=== PATIENT | male | born 1940 | race Caucasian/White ===

== ENCOUNTER → 2016-06-29 06:53 | Day surgery (SDC) | payer MEDICARE, OTHER ==
--- NOTE | 2016-06-22 01:19 | HP ---
ADMISSION HISTORY AND PHYSICAL: DATE OF ADMISSION: 06/29/16 DICTATING: DAMON Saul ATTENDING SURGEON: Johnson Borges MD CHIEF COMPLAINT: Umbilical hernia. HISTORY OF PRESENT ILLNESS: This is a 75-year-old male with longstanding history of an umbilical bulge, which until recently had been asymptomatic. On 06/13/16 and 06/14/16, the patient experienced increased pain in the umbilical region and found that the hernia bulge was not reducible. This was also associated with nausea and vomiting. He eventually was able to successfully reduce the hernia and felt improvement though he has continued to note ongoing intermittent nausea and occasional vomiting. It is difficult to correlate whether that is always in relation to increased symptoms from the hernia. He was seen in the office by Dr. Borges on 06/16/16; at which time, exam confirmed the presence of an umbilical hernia bulge, which was easily reducible and at that time nontender. The remainder of the abdominal exam was benign. Dr. Borges discussed with him the indications for repair and matters thereof, the patient would like to proceed as scheduled with open repair umbilical hernia with mesh. He understands that Dr. Borges will likely excise some of the umbilical skin as part of the procedure. PAST MEDICAL HISTORY: 1. Asthma. 2. Atrial fibrillation. 3. Coronary artery disease. 4. Mitral valve disease (status post mitral valve repair with single-vessel CABG and concurrent maze ablation procedure in 2007). 5. Hyperlipidemia. 6. Obstructive sleep apnea (has used CPAP in the past), but not presently. 7. Hypertension. 8. Chronic bilateral lower extremity venous stasis disease. 9. Insomnia. 10. Chronic anemia (at least in part iron deficiency with possible history as well of B12 deficiency). 11. Thoracic aortic ectasia. PAST SURGICAL HISTORY: 1. Cardiac surgery as noted above. 2. Vasectomy. CURRENT MEDICATIONS: 1. Atenolol 100 mg once daily. 2. Warfarin 4 mg once daily (the patient instructed to hold after his 06/23/16 dose). 3. Amiodarone 200 mg every day. 4. Aspirin 81 mg every day (he will continue perioperatively). 5. Simvastatin 20 mg q.p.m. 6. Spiriva 2 inhalations q.a.m. 7. QVAR 3 puffs q.a.m., 2 puffs q.p.m. 8. Zolpidem 10 mg one-half to one tablet at bedtime p.r.n. insomnia. 9. Nifedipine extended release 60 mg every day. 10. Multivitamin every day. DRUG ALLERGIES: None known. FAMILY HISTORY: Negative for anesthesia problems or bleeding or clotting disorders. SOCIAL HISTORY: The patient is . 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 He quit smoking 30 to 40 years ago. He drinks on an average less than or equal to 1 drink per day. He denies other drug use. REVIEW OF SYSTEMS: General: No recent constitutional symptoms other than as per the HPI. Because of his ongoing nausea, he has lost approximately 10 pounds in recent weeks. Cardiovascular: See attached note from Dr. Marina. No additional recent symptoms; chest pain, palpitations, or shortness of breath. Respiratory: No recent exacerbations of his asthma. No chronic cough. GI: As noted above. He was scheduled to be seen by Dr. Hubbard on 06/29/16, but that was rescheduled because of the conflict with the surgery. He has undergone colonoscopy in the past; the most recent being approximally 6 years ago with normal report per the patient. : No problems reported. Endocrine: No diabetes or thyroid dysfunction. Hematological/Oncological: He is followed by Dr. Cheryl Horne for his anemia. PHYSICAL EXAMINATION GENERAL: A well-nourished, obese male, in no acute distress. VITAL SIGNS: Height 70 inches, weight 256 pounds, other vital signs per nursing. HEENT: Pupils are equal, round, and reactive. EOMs intact. He has an apparent pinguecula of the left eye, lateral aspect. No conjunctival pallor. Oropharynx: Teeth in good repair. No intraoral lesions. NECK: No lymphadenopathy, thyromegaly, or masses. LUNGS: Clear to auscultation. No rales or wheezes. HEART: Regular rate and rhythm. Soft systolic murmur heard throughout the pericardium. Status post median sternotomy. ABDOMEN: Obvious local bulge, which is soft, nontender, and easily reducible. The remainder of the abdominal exam is without significant tenderness, masses, or organomegaly. No palpable inguinal hernias. GENITALIA: Not done. RECTAL: Not done. BACK: No spinous processes or CVA tenderness. EXTREMITIES: He has bilateral lower extremity compression stockings in placed. SKIN: Warm and dry. No suspicious rashes or lesions noted. IMPRESSION: Umbilical hernia. PLAN: Open repair umbilical hernia with mesh. DAMON SAUL CC: Miguel Mairna MD at [facility]; Dr. Ellington; Dr. Horne; Con Hubbard MD* [id number]/[facility] #: [id number] [facility]
[~2016-06-29 06:53] MED LIST: Buffered Lidocaine 1% SYR 3ML* 3 ML/SYR SYRINGE INTRADERM ONE; Buffered Lidocaine 1% SYR 3ML* 3 ML/SYR SYRINGE ONE; Bupivacaine 0.5% W/EPI SDV* 30 ML VIAL ONE; Famotidine IV* 10 MG/ML 2 ML (20 mg) IV ONE; Famotidine IV* 10 MG/ML 2 ML (20 mg) ONE; KETAMINE HCL* 50 MG/ML 10 ML VIAL ONE; Lidocaine 1% INJ* 10 MG/ML 30 ML SDV ONE; Metoprolol Tartrate IV* 1 MG/ML 5 ML VIAL ONE; Midazolam* 1 MG/ML 5 ML VIAL (5 MG) ONE; Morphine INJ* 2 MG/ML 1 ML CARPUJECT IV PRN; PROCHLORPERAZINE INJ 5 MG/ML 2 ML VIAL IV PRN; ceFAZolin 2 GM PREMIX (*) 2 GM/50 ML BAG IVPB ONE; fentaNYL* 50 MCG/ML 2 ML VIAL (100 MCG VIAL) IV PRN; fentaNYL* 50 MCG/ML 2 ML VIAL (100 MCG VIAL) ONE; oxyCODONE/Acetamin 5/325 MG* TAB PO PRN
[2016-06-29 09:32] VITALS: BP 113/69
--- NOTE | 2016-07-07 12:54 | OP ---
OPERATIVE REPORT: DATE OF OPERATION: 06/29/16 DATE OF : 38 SURGEON: Johnson Borges MD MELT SUPERINTENDANT: Leilani Scherer NP ANESTHESIOLOGIST: Dr. Tilley. ANESTHESIA: Local, MAC. PRE-OP DIAGNOSIS: Umbilical hernia. POST-OP DIAGNOSIS: Umbilical hernia. OPERATIVE PROCEDURE: Open repair of umbilical hernia with mesh. ESTIMATED BLOOD LOSS: Less than 30 cc. SPECIMEN: Hernia sac with umbilical skin. FLUIDS: Crystalloid fluid given. DRAINS: None. DESCRIPTION OF PROCEDURE: The patient was identified in the preoperative area, marked, and brought back to the operating room, placed on the operating table in supine position, gentle sedation was gi altagracia. The patient's abdomen was prepped and draped in the standard surgical fashion and a time-out w as performed. Review of the umbilicus revealed a large hernia that was reducible. An ellipse was d rawn around the umbilical skin. Injection of lidocaine along this ellipse was then carried out, inc ised and deepened this down to the hernia sac. We entered into the hernia sac and lifted up the ful l sac and umbilical skin and passed it off as specimen. This allowed us to evaluate the full hernia defect, which was approximately 2 cm. We isolated the pr eperitoneal plane with plan to place a 6.4 cm mesh into this space. Once this was cleared off, the mesh was inserted. Tails of the mesh were brought up and we tacked it to the skin with 0 Polysorb s utures, anterior and superior. Lateral sutures were placed through the mesh as well as through the fascia and the wound was then irrigated and we reapproximated the fascia with a running 0 Polysorb s uture. Next, the skin edges were reapproximated with a 3-0 nylon suture in a mattress fashion followed by S miriam-Strips and sterile dressing. The patient tolerated the procedure well and was transferred to [facility] PACU in stable condition. [id number]/[facility] #: [id number]
== END | disposition home or self-care (01) ==
LOC: OR 06:53
PROVIDERS: ATTEND Surgery
DX: K42.9 Umbilical hernia without obstruction or gangrene (principal); I48.91 Unspecified atrial fibrillation; I34.0 Nonrheumatic mitral (valve) insufficiency; Z79.01 Long term (current) use of anticoagulants; Z87.891 Personal history of nicotine dependence; I77.810 Thoracic aortic ectasia
CPT/HCPCS: 88302; C1781; J0690; J2250; J3010; J3490

== ENCOUNTER 2019-02-14 01:36 | Inpatient (IN) | payer MEDICARE, OTHER ==
[2019-02-14] MEDS ORDERED: Clindamycin 600 MG IVPREMIX(* 600 MG/50 ML SDV IV ONE (01:56)
--- NOTE | 2019-02-14 01:56 | ED ---
Lower Extremity - HPI Summary HPI Summary: 78 year old M brought in by EMS presenting to [facility] accompanied by complains of left thigh pain and swelling rated 2/10 in severity for 1 week. EMS states that patient's left leg is warm to touch and erythematous. Patient reports fever, chills, shortness of breath since yesterday morning. Patient denies chest pain, abdominal pain, dsyuria. Symptoms aggravated by nothing. Symptoms alleviated by nothing. states that patient's legs are usually swollen and that patient wears compression stockings, but didn't want to wear them yesterday because he felt that his legs were too swollen and his stockings were cutting into his leg. states that two nights ago, patient woke up with chills. reports gagging and labored breathing since yesterday morning. states that yesterday, patient didn't feel well and didn't want to eat, which is unusual for patient. Tonight, patient was unable to get out of his recliner and unable to walk. Patient is on Coumadin, has hx atrial fibrillation, has hx asthma, is a former smoker, and has hx MRSA per . Medications reviewed. Allergies noted. - History of Current Complaint Chief Complaint: EDExtremityLower Stated Complaint: LEG PAIN PER EMS Time Seen by Provider: 02/14/19 01:47 Hx Obtained From: Patient, Family/Marketing Account Executive - Onset/Duration: Weeks - 1 Severity Currently: Mild Pain Intensity: 2 Pain Scale Used: 0-10 Numeric Timing: Constant Associated Signs And Symptoms: Positive: Negative - chest pain, abdominal pain, dsyuria, Other - fever, chills, shortness of breath Aggravating Factor(s): Nothing Alleviating Factor(s): Nothing - Allergies/Home Medications Allergies/Adverse Reactions: Allergies Allergy/AdvReac Type Severity Reaction Status Date / Time No Known Allergies Allergy Verified 02/14/19 01:50 Home Medications: Home Medications LevoCETirizine TAB (NF) 5 mg PO DAILY 02/14/19 [History Confirmed 02/14/19] Omeprazole 20 mg PO DAILY 02/14/19 [History Confirmed 02/14/19] Symbicort 160/4.5 (NF) 2 inh PO BID 02/14/19 [History Confirmed 02/14/19] PMH/Surg Hx/FS Hx/Imm Hx Endocrine/Hematology History: Reports: Hx Anemia - SEEING DR. PARKER Denies: Hx Diabetes, Hx Systemic Lupus Erythematosus Cardiovascular History: Reports: Hx Atrial Fibrillation, Hx Coronary Artery Disease - CHOLESTEROL CONTROL WITH MEDS, Hx Hypercholesterolemia, Hx Hypertension, Other Cardiovascular Problems/Disorders - Mitral valve repair Denies: Hx Congestive Heart Failure, Hx Pacemaker/ICD Respiratory History: Reports: Hx Asthma, Hx Sleep Apnea - CPAP, which pt does not use, Other Respiratory Problems/Disorders - PNEUMONIA 2010 GI History: Reports: Hx Gastroesophageal Reflux Disease - Protonix (ins. wouldn' t continue paying for Nexium.), Other GI Disorders - Hernia History: Denies: Hx Renal Disease Musculoskeletal History: Denies: Hx Rheumatoid Arthritis Sensory History: Reports: Hx Contacts or Glasses Denies: Hx Hearing Aid Opthamlomology History: Reports: Hx Contacts or Glasses Psychiatric History: Denies: Hx Panic Disorder - Surgical History Surgery Procedure, Year, and Place: mitral valve repair. 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, hx in left leg Denies: Traveled Outside the [place] in Last 30 Days - Family History Known Family History: Positive: Hypertension - father and mother - Social History Alcohol Use: Weekly Alcohol Amount: 5 GLASSES PER WEEK Hx Substance Use: No Substance Use Type: Reports: None Hx Tobacco Use: Yes Smoking Status (MU): Former Smoker Type: Cigarettes Have You Smoked in the Last Year: No Review of Systems Positive: Fever, Chills Negative: Chest Pain Positive: Shortness Of Breath Negative: Abdominal Pain Negative: dysuria Positive: Other - left thigh pain and swelling, left leg is warm to touch and erythematous All Other Systems Reviewed And Are Negative: Yes Physical Exam - Summary Physical Exam Summary: Constitutional: Well-developed, Well-nourished, Alert. (-) Distressed, Patient is tachypneic Skin: Warm, Dry HENT: Normocephalic; Atraumatic Eyes: Conjunctiva normal Neck: Musculoskeletal ROM normal neck. (-) JVD, (-) Stridor, (-) Tracheal deviation Cardio: Rhythm regular, rate normal, Heart sounds normal; Intact distal pulses; The pedal pulses are 2+ and symmetric. Radial pulses are 2+ and symmetric. (-) Murmur Pulmonary/Chest wall: Effort normal. (-) Respiratory distress, (-) Wheezes, (-) Rales Abd: Soft, (-) tenderness, (-) Distension, (-) Guarding, (-) Rebound Musculoskeletal: Left leg is swelling, left thigh is erythematous and tender especially at the medial thigh, the whole leg is warm Lymph: (-) Cervical adenopathy Neuro: Alert, Oriented x3 Psych: Mood and affect Normal Triage Information Reviewed: Yes Vital Signs On Initial Exam: Initial Vitals Temp Pulse Resp BP Pulse Ox 100.8 F 100 22 126/73 93 02/14/19 01:38 02/14/19 01:38 02/14/19 01:38 02/14/19 01:38 02/14/19 01:38 Vital Signs Reviewed: Yes Diagnostics - Vital Signs Vital Signs Temp Pulse Resp BP Pulse Ox 02/14/19 01:38 100.8 F 100 22 126/73 93 - Laboratory Result Diagrams: 02/14/19 02:33 02/14/19 02:33 Lab Statement: Any lab studies that have been ordered have been reviewed, and results considered in the medical decision making process. - Radiology CXR Radiology Interpretation Completed By: ED Physician Summary of Radiographic Findings: unchanged from x-ray on 01/04/18. sternotomy scar present. infiltrate along the right heart border. pending official report - EKG 0204 Cardiac Rate: NL - 99 BPM EKG Rhythm: Sinus Rhythm Lower Extremity Course/Dx - Course Course Of Treatment: Patient is here with fever and suspected cellulitis of the left lower extremity. Upon arrival, patient was febrile and borderline tachycardic. Patient had a sepsis workup performed which showed a white blood cell count of 14 and a normal lactate. Patient was given 1 L of IV fluids and clindamycin empirically. Patient was tachypneic in the room so a chest x-ray was ordered which showed no acute abnormality from baseline. Patient remained to I CTA was performed which showed no PE. Patient had blood culture sent. Patient was admitted to medicine for further management. - Diagnoses Provider Diagnoses: Fever, Cellulitis and abscess of left leg, Sepsis, Tachypnea - Physician Notifications Discussed Care Of Patient With: Nino Candelario Time Discussed With Above Provider: 03:25 Instructed by Provider To: Other - Dr. Candelario, hospitalist, agrees to admit patient Discharge ED - Sign-Out/Discharge Documenting (check all that apply): Patient Departure - Admit Patient Received Moderate/Deep Sedation with Procedure: No - Discharge Plan Condition: Stable Disposition: ADMITTED TO [facility] Referrals: Taylor Pena MD [Primary Care Provider] - - Billing Disposition and Condition Condition: STABLE Disposition: Admitted to [facility] - Attestation Statements Document Initiated by Keriibe: Yes Documenting Scribe: Taylor Carver Provider For Whom Nasmi is Documenting (Include Credential): Lester Hogan MD Scribe Attestation: Taylor Martins, scribed for Lester Hogan MD on 02/14/19 at 0535. Scribe Documentation Reviewed: Yes Provider Attestation: The documentation as recorded by the Taylor obregon accurately reflects the service I personally performed and the decisions made by Lester aguiar MD Status of Scribe Document: Viewed
[2019-02-14 03:00] LABS: ABS Lymphocytes 0.3 10^3/ul (1.0-4.8); ABS Monocytes 0.4 10^3/ul (0-0.8); ABS Neutrophils 12.5 10^3/ul (1.5-7.7); Eosinophil % 0.1 %; Hematocrit 45 % (42-52); Hemoglobin 15.1 g/dL (14.0-18.0); Lymphocyte % 2.3 %; Mean Corpuscular HGB Conc 34 g/dL (31-36); Mean Corpuscular Hemoglobin 32 pg (27-31); Mean Corpuscular Volume 94 fL (80-94); Mean Platelet Volume 7.9 fL (7.4-10.4); Nucleated Red Blood Cells % 0.1; Platelet Count 232 10^3/uL (150-450); Red Blood Count 4.78 10^6 /uL (4.18-5.48); Red Cell Distribution Width 17 % (10-15); White Blood Count 13.3 10^3/uL (3.5-10.8)
[2019-02-14 03:07] LABS: Activated Partial Thrombo Time 46.1 seconds (26.0-38.0); INR 2.15 (0.82-1.09)
[2019-02-14 03:16] LABS: Albumin 3.8 g/dL (3.2-5.2); Albumin/Globulin Ratio 1.2 (1-3); Calcium 9.4 mg/dL (8.6-10.3); EGFR African American 55.9 (>60); EGFR Non-African American 46.2 (>60); Globulin 3.3 g/dL (2-4); Potassium 4.6 mmol/L (3.5-5.0); Total Bilirubin 0.6 mg/dL (0.2-1.0); Total Protein 7.1 g/dL (6.4-8.9)
[2019-02-14 03:19] LABS: Troponin I 0.03 ng/mL (<0.04)
[2019-02-14] MEDS ORDERED: NS 0.9% 1000 ML** 1,000 ML IV ONE ×2 (03:19→05:35)
[2019-02-14] MEDS ORDERED: Acetaminophen TAB* 325 MG PO ONE (03:19)
[2019-02-14] MEDS ORDERED: Iodixanol 320 (CONTRAST) 200 ML SDV IV ONE (04:07)
[2019-02-14] MEDS ORDERED: NS 0.9% 1000 ML** 1,000 ML IV SCH (05:45)
[2019-02-14] MEDS ORDERED: Vancomycin(*) 1,000 MG in NS 0.9% 250 ML* 250 ML IVPB ONE (06:02)
[2019-02-14] MEDS ORDERED: Piperacillin/Tazobac ADVAN(*) 3.375 GM in NS 0.9% 100 ML* 100 ML IVPB ONE (06:02)
[2019-02-14] MEDS ORDERED: Vancomycin per Pharmacy* NOTE FOLLOW UP SCH (07:00)
[2019-02-14] MEDS ORDERED: Zosyn per Pharmacy* NOTE FOLLOW UP SCH (07:00)
[2019-02-14] MEDS ORDERED: Vancomycin(*) 1,000 MG BAG/ADDV IVPB ONE (07:05)
[2019-02-14 08:53] LABS: Urine Appearance Cloudy; Urine Bacteria 1+ (Absent); Urine Bilirubin Negative (Negative); Urine Blood 1+ (Negative); Urine Color Yellow; Urine Glucose Negative (Negative); Urine Ketones Trace (Negative); Urine Nitrite Negative (Negative); Urine Protein 2+(100 mg/dL) (Negative); Urine Red Blood Cell 3+(>10/hpf) (Absent); Urine Specific Gravity 1.043 (1.010-1.030); Urine Squamous Epithelial Cell Present (Absent); Urine Urobilinogen Negative (Negative); Urine White Blood Cell 3+(>20/hpf) (Absent)
[2019-02-14] MEDS ORDERED: NIFEdipine ER TAB* 60 MG PO SCH (09:00)
--- NOTE | 2019-02-14 09:58 | HP ---
CC: Dr. Taylor Ellington * ADMISSION HISTORY AND PHYSICAL: DATE OF ADMISSION: 02/14/19 CHIEF COMPLAINT: Left lower extremity erythema. HISTORY OF PRESENT ILLNESS: This is a 78-year-old male with a past medical history of asthma, AFib, coronary artery disease, status post single-vessel bypass grafting status post repair with single-vessel bypass grafting along with concurrent maze ablation procedure in 2007, came in due to left lower extremity erythema and pain. The patient stated that he was in his usual state of health up until yesterday when he stated that his compression stockings that he wears for his lower extremity edema and venous insufficiency were too tight, so he took them off, and his was trying to get him off the chair and he was having difficulty standing up on his own, at which point she called his son and they were both attempting to lift him and during this procedure the noticed that his left leg was very warm. The patient did have history of cellulitis in that extremity and finally she decided to bring him to the ER for further evaluation. Upon arrival to the ER, the patient was noted to be febrile. The patient otherwise denies any other pain but stated that initially the patient was breathing very heavy when attempting to get out of the recliner and even after arriving to the ER and requiring some oxygen which he never uses at home. The patient otherwise denies any other symptoms at this point. Denies any dizziness, lightheadedness, numbness, tingling. He does have some pain in the left lower extremity especially around the left thigh, where the swelling is the worst. The patient's did mention that the patient seemed a little bit confused initially yesterday but that confusion had resolved by now when the patient was in the ER. PAST MEDICAL HISTORY: 1. As mentioned, he has a history of asthma. 2. Atrial fibrillation, on Coumadin. 3. Coronary artery disease status post single-vessel bypass grafting during his mitral valve repair procedure, concurrent maze ablation procedure, did not ablate his atrial fibrillation. 4. History of hyperlipidemia. 5. Obstructive sleep apnea, on CPAP at home. 6. Hypertension. 7. Chronic bilateral lower extremity venous stasis. 8. Insomnia. 9. Chronic anemia. 10. Thoracic aortic ectasia. 11. Previous history of cellulitis of his legs. PAST SURGICAL HISTORY: Includes the triple procedure in 2007, which included the mitral valve repair, single-vessel bypass grafting, and concurrent maze ablation, all in the single event and a history of vasectomy. HOME MEDICATIONS: The patient is currently on: 1. Symbicort 2 puffs by inhalation b.i.d. 2. Ambien 5 mg p.o. at bedtime p.r.n. 3. Coumadin 4 mg daily every evening. 4. Spiriva 2 caps by inhalation every morning. 5. Simvastatin 20 mg q.p.m. 6. Omeprazole 20 mg oral daily. 7. Nifedipine 60 mg every morning. 8. Levocetirizine 5 mg oral daily. 9. Furosemide 40 mg every morning. 10. B12 1000 mcg sublingual at bedtime. 11. Atenolol 100 mg p.o. every morning. 12. Aspirin 81 mg every morning. 13. Amiodarone 100 mg every morning. ALLERGIES: No known drug allergies. FAMILY HISTORY: Noncontributory at his age of 78. SOCIAL HISTORY: The patient quit smoking about roughly 40 years ago, lives with his who is his healthcare proxy, and the patient wants to be a full code. Denies any other alcohol or drug use. REVIEW OF SYSTEMS: A 14-point review of systems did not reveal any new information, other than what is stated in the HPI. PHYSICAL EXAMINATION GENERAL: The patient is awake, alert, oriented x3, did not appear to be in any acute respiratory distress. VITAL SIGNS: In the ER, T-max was noted to be 100.8, repeat temperature was noted to be 99.6 during my evaluation; BP was noted to be fluctuant, initially was unreliable 126/73, became as low as 89/56 but then improved to 100/51; heart rate was noted to be stable around 81, respiration rate was around 26, and oxygen saturation was 92% on 2 L nasal cannula. HEAD AND NECK: Atraumatic, normocephalic. Bilateral pupils are reactive. Oral mucosa was moist. Neck is supple. No jugular venous distention. LUNGS: Clear to auscultation bilaterally. No wheezing, rhonchi, or rales. HEART: S1, S2. Regular rate and rhythm. ABDOMEN: Soft, nontender, and nondistended. EXTREMITIES: The patient did have bilateral lower extremity edema with chronic venous stasis changes up to the mcclure bilaterally, but there was superficial erythema on top on the left side and minimally tender, especially in the left thigh area with his erythema. He did have some warmth in that extremity as well. DIAGNOSTIC STUDIES/LAB DATA: CBC showed elevated white count of 13.3, hemoglobin and hematocrit stable, platelet count is stable. Coagulation profile shows therapeutic INR of 2.15. Comprehensive metabolic panel shows elevated BUN at 25, creatinine elevated at 1.47, lactic acid was noted to be 0.7. LFTs were within normal limits. EKG shows sinus rhythm at 98 beats per minute without any ST elevations. CTA of the chest showed no pulmonary embolism , status post mitral valve replacement surgery, linear atelectasis and/or fibrosis in the right middle lobe and lower lobe, coronary artery calcification , small hiatal hernia. IMPRESSION: This is a 78-year-old gentleman here with left lower extremity swelling and fever, meets sepsis criteria with elevated white count and fever, admitted for sepsis secondary to cellulitis. ASSESSMENT/PLAN: 1. Sepsis secondary to cellulitis. We will start the patient on broad- spectrum antibiotics with vancomycin and Zosyn and follow up blood cultures and treat accordingly. His previous wound culture from 2014 showed growth of both methicillin-resistant Staphylococcus aureus and Escherichia coli, which would be easily covered by both of the current choices of vancomycin and Zosyn. 2. History of atrial fibrillation, on Coumadin. We will restart his Coumadin dose and monitor the patient on telemetry. 3. History of chronic obstructive pulmonary disease/asthma. Restart home medication. 4. History of dyslipidemia. Restart home medication. 5. History of obstructive sleep apnea. We will restart his home CPAP machine nightly. 6. History of coronary artery disease. Restart his aspirin. 7. Acute on chronic kidney disease, likely secondary to sepsis. We will continue with IV hydration and hold his diuretic therapy at home. 8. Hypotension secondary to sepsis. We will place holding parameters on blood pressure medications and continue with IV hydration. 9. DVT prophylaxis. The patient is already on therapeutic Coumadin. 10. Code status. The patient is currently full code and who is at bedside is his healthcare proxy. [id number]/[facility] #: [id number] [facility]
[2019-02-14] MEDS: Atenolol TAB* 50 MG PO SCH (11:02)
[2019-02-14] MEDS: Pantoprazole TAB * 40 MG TAB PO SCH (11:53)
[2019-02-14] MEDS: Amiodarone TAB* 200 MG PO SCH (11:53)
[2019-02-14] MEDS: Aspirin EC TAB* 81 MG TAB.EC PO SCH (11:53)
[2019-02-14] MEDS: Cetirizine* 10 MG TAB PO SCH (11:53)
[2019-02-14] MEDS ORDERED: ZOSYN 3.375 GM Q8H per EXTENDED INFUSION IVPB SCH ×2 (12:00)
[2019-02-14] MEDS ORDERED: Acetaminophen TAB* 325 MG PO PRN (12:01)
[2019-02-14] MEDS ORDERED: Albuterol/Ipratropium NEB.SOL* Albuterol 2.5 MG/Ipratropium 0.5 MG 3 ML INH PRN (12:04)
[2019-02-14] MEDS: SPIRIVA Respimat* (tiotropium) 2.5 mcg/inh Inhaler INH SCH (12:44)
[2019-02-14] MEDS: Mometasone/Formoter 200/5 MDI INH SCH ×2 (12:44→19:42)
[2019-02-14] MEDS ORDERED: Perflutren Lipid Microsphere* 3 ML VIAL ONE (13:28)
--- NOTE | 2019-02-14 14:48 | PN ---
Subjective Date of Service: 02/14/19 Interval History: Brief update: Pt admitted this AM. Pt and children report that main symptoms were: confusion, chills, weakness, LLE pain/redness, and labored breathing. Patient reports all are better now. Children agree that is is mentating closer to baseline. Started on vanc/zosyn this morning. Also on maintenance IVF after 2 L bolus, but will stop this now given history of fluid retention and stable hemodynamics. Will check TTE. Objective Active Medications: Acetaminophen (Tylenol Tab*) 975 mg PO Q8H PRN PRN Reason: Fever Albuterol/Ipratropium (Duoneb (Albuterol 2.5 Mg/Ipratropium 0.5 Mg)) 1 neb INH Q6H PRN PRN Reason: SOB/WHEEZING Amiodarone HCl (Cordarone Tab*) 100 mg PO QAM ON LICENSE OF [facility] Last Admin: 02/14/19 11:53 Dose: 100 mg Aspirin (Aspirin Ec Tab*) 81 mg PO QAM ON LICENSE OF [facility] Last Admin: 02/14/19 11:53 Dose: 81 mg Atenolol (Tenormin Tab*) 100 mg PO QAM ON LICENSE OF [facility] Last Admin: 02/14/19 11:02 Dose: Not Given Atorvastatin Calcium (Lipitor*) 10 mg PO QPM ON LICENSE OF [facility] Cetirizine HCl (Zyrtec*) 10 mg PO DAILY ON LICENSE OF [facility] Last Admin: 02/14/19 11:53 Dose: 10 mg Cyanocobalamin (Vitamin B12 Tab*) 1,000 mcg PO BEDTIME ON LICENSE OF [facility] Clindamycin HCl/Dextrose (Cleocin 600 Mg/50 Ml(*)) 600 mg in 50 mls @ 100 mls/ hr IV Q8H ON LICENSE OF [facility] Lactobacillus Rhamnosus (Lactobacillus Acidophilus*) 1 tab PO DAILY ON LICENSE OF [facility] Mometasone Furoate/Formoterol Fumar (Dulera 200/5 Mdi*) 2 puff INH BID ON LICENSE OF [facility] Last Admin: 02/14/19 12:44 Dose: Not Given Nifedipine (Procardia Xl Tab*) 30 mg PO QAM ON LICENSE OF [facility] Pantoprazole Sodium (Protonix Tab*) 40 mg PO DAILY ON LICENSE OF [facility] Last Admin: 02/14/19 11:53 Dose: 40 mg Tiotropium [place] (Spiriva Respimat 2.5 Mcg) 2 puff INH QAM ON LICENSE OF [facility] Last Admin: 02/14/19 12:44 Dose: Not Given Warfarin Sodium (Coumadin Tab(*)) 4 mg PO 1700 RISA; Protocol Zolpidem Tartrate (Ambien Tab*) 5 mg PO BEDTIME PRN PRN Reason: SLEEP Vital Signs - 8 hr 02/14/19 02/14/19 02/14/19 06:54 07:00 07:24 Temperature Pulse Rate 84 89 85 Respiratory 25 25 27 Rate Blood Pressure 109/61 117/66 (mmHg) O2 Sat by Pulse 99 80 91 Oximetry 02/14/19 02/14/19 02/14/19 07:32 07:55 08:00 Temperature 99.6 F Pulse Rate 81 89 86 Respiratory 20 25 28 Rate Blood Pressure 100/51 122/80 (mmHg) O2 Sat by Pulse 93 92 93 Oximetry 02/14/19 02/14/19 02/14/19 08:24 08:55 09:00 Temperature Pulse Rate 95 97 98 Respiratory 17 15 18 Rate Blood Pressure 133/83 139/81 (mmHg) O2 Sat by Pulse 92 93 93 Oximetry 02/14/19 02/14/19 09:29 11:40 Temperature 98.1 F 98.6 F Pulse Rate 99 99 Respiratory 24 20 Rate Blood Pressure 124/78 114/63 (mmHg) O2 Sat by Pulse 95 95 Oximetry Oxygen Devices in Use Now: Nasal Cannula Appearance: mildly ill appearing man in NAD, appears tired, diaphoretic; frequently with sense of humor; interactive with children at bedside Eyes: No Scleral Icterus Ears/Nose/Mouth/Throat: Clear Oropharnyx, Mucous Membranes Moist Neck: - - unable to see JVP Respiratory: - - mild crackles at bases, scant expiratory wheeze Cardiovascular: NL Sounds; No Murmurs; No JVD, RRR Skin: - - cool over arms, warm over legs but L > R; diffuse erythema with edema over L thigh extending down to mcclure, no purulence, tender over medial thigh, no fluctuance or crepitus; RLE with hyperpigmentation distally Result Diagrams: 02/14/19 02:33 02/14/19 02:33 Microbiology and Other Data: Microbiology 02/14/19 11:55 Nasal Screen MRSA (PCR) - Final Nasal Mrsa Not Detected Assess/Plan/Problems-Billing Assessment: 78M with obesity, COPD, TERESO on CPAP, afib s/p maze on warfarin, CAD s/p 1v bypass, HTN, who presents with chills, weakness, LLE pain/redness, and labored breathing, found with fever, leukocytosis, and leg concerning for cellulitis. - Patient Problems (1) Cellulitis Comment: Nonpurulent over LLE. Over knee but no evidence of joint involvement - full ROM in tact without pain, no effusion. Presented with sepsis. - switch vanc/Zosyn to clinda 600mg IV q8h (02/14 - ) - monitor vitals closely - f/u blood cultures (2) Afib Comment: INR at goal. - cont warfarin with INR checks - cont atenolol, amiodarone (3) HTN (hypertension) Comment: - on atenolol 100 and nifedipine 60 at home - nifedipine held this AM due to low-normal BP, will re-start at lower dose if possible tomorrow (4) TERESO (obstructive sleep apnea) Comment: - cont CPAP (5) Asthma Comment: pt actually with COPD - cont home Spiriva, Symbicort - nebs prn - monitor O2 with goal 88-92% (6) CAD (coronary artery disease) Comment: - cont home aspirin, bb, atorvastatin (7) DVT prophylaxis Current Visit: No Status: Acute Priority: High Code(s): YSV5051 - SNOMED Code(s): 379008255 Comment: on warfarin (8) Full code status Current Visit: No Status: Acute Priority: High Code(s): Z78.9 - OTHER SPECIFIED HEALTH STATUS SNOMED Code(s): 517726291
--- NOTE | 2019-02-14 15:43 | ECHO ---
*[facility]* [place] [address] Fax #: [phone] Transthoracic Echocardiogram Patient: Saurabh Sams : 1940 Study Date: 02/14/2019 Age: 78 Gender: M HR: 95 bpm Height: 70 in /177.8 cm BSA: 2.65 m^2 Weight: 297.4 lb /135.2 kg BMI: 42.8 kg/m^2 *Parachutist/Combatant Diver Qualified: * Nahomi Boyer RDCS RN *Referring Physician: * Lauren Browning *Reading Physician: * Johnson Daley MD Indications: Congestive Heart Failure. History: Atrial fibrillation. Chronic obstructive pulmonary disease. Asthma. Obstructive sleep apnea using CPAP. Risk factors: Former tobacco use. Hypertension. Morbidly obese. Dyslipidemia. Labs, prior tests, procedures, and surgery: Coronary artery bypass grafting. Mitral valve repair. Conclusions Summary: - Left ventricle: The cavity size is normal. Wall thickness is mildly to moderately increased. Systolic function is at the lower limits of normal. The estimated ejection fraction is 55-60%. Wall motion is normal; there are no regional wall motion abnormalities. - Right ventricle: The cavity size is mildly dilated. Systolic function is mildly to moderately reduced. - Ventricular septum: Ventricular septal wall motion has a postoperative appearance. - Left atrium: The atrium is moderately dilated. - Mitral valve: There is trace regurgitation. Mitral valve repair functioning normally, mean gradient 4.9mmHg - Pulmonary arteries: Systolic pressure is within the normal range. Recommendations: Compared to prior study from 10/2018, PASP previously estimated as mildy elevated. Study data: Transthoracic echocardiogram. Procedure: Transthoracic echocardiography was performed. The study was technically limited due to restricted patient mobility, body habitus, and COPD. Intravenous Definity 5 ml was administered to enhance imaging. Complete 2D, spectral Doppler, and color flow Doppler. Location: Bedside. Patient status: Inpatient. Patient room number: 440. Rhythm: Normal sinus rhythm with PAC's. Findings Left ventricle: The cavity size is normal. Wall thickness is mildly to moderately increased. Systolic function is at the lower limits of normal. The estimated ejection fraction is 55-60%. Wall motion is normal; there are no regional wall motion abnormalities. Left ventricular diastolic function parameters are indeterminate. Right ventricle: The cavity size is mildly dilated. Systolic function is mildly to moderately reduced. Ventricular septum: Ventricular septal wall motion has a postoperative appearance. Left atrium: The atrium is moderately dilated. Right atrium: The atrium is moderately dilated. Mitral valve: Not well visualized. The leaflets are mildly thickened. There is trace regurgitation. Mitral valve repair functioning normally, mean gradient 4.9mmHg Aortic valve: Not well visualized. The leaflets are mildly thickened. There is no evidence of stenosis. There is no significant regurgitation. Tricuspid valve: The valve is structurally normal. There is mild regurgitation. Pulmonic valve: Not well visualized. Aorta: Aortic root: The aortic root is not dilated. Ascending aorta: The ascending aorta is mildly dilated. Aortic arch: The aortic arch is not visualized. Pericardium: There is no pericardial effusion. Pulmonary arteries: Not well visualized. Systolic pressure is within the normal range. Systemic veins: Inferior vena cava: Not visualized. Measurements Left ventricle Value Ref Aortic valve Value Ref HAILEY, LAX 4.4 cm 4.2 - Peak v, S 1.64 m/sec ----- 5.8 VTI, S 24.4 cm ----- ESD, LAX 3.0 cm 2.5 - Mean grad, S 5.7 mm Hg ----- 4.0 Peak grad, S 10.8 mm Hg ----- FS, LAX 32 % 25 - 43 LVOT/AV, VTI ratio 0.84 ----- PW, ED (H) 1.3 cm 0.6 - MIRELA, VTI 2.48 cm^2 ----- 1.0 MIRELA, Vmax 2.54 cm^2 ----- IVS/PW, ED 1 -------- E', lat saroj, TDI 10.0 cm/sec >=10.0 Mitral valve Value Ref E/e', lat saroj, TDI 14 -------- Peak E 1.35 m/sec --- -- E', med saroj, TDI 9.0 cm/sec >=7.0 Peak A 1.1 m/sec ----- E/e', med saroj, TDI 15 -------- Mean v, D 1.06 m/sec --- -- E', avg, TDI 9.5 cm/sec -------- Decel time 231 ms --- -- E/e', avg, TDI 14 <=14 PHT 80 ms ----- Peak grad, D 10.2 mm Hg ----- LVOT Value Ref Peak E/A ratio 1.23 ----- Diam, S 2.06 cm -------- MVA/bsa 0.66 cm^2/m^2 ----- Area 3.3 cm^2 -------- MVA, PHT 2.7 cm^2 ----- Peak casa, S 1.19 m/sec -------- MVA, LVOT cont 1.8 cm^2 ----- VTI, S 20.6 cm -------- Peak grad, S 6 mm Hg -------- Pulmonic valve Value Ref Mean grad, S 3 mm Hg -------- Peak v, S 0.94 m/sec ----- Peak grad, S 3.6 mm Hg ----- Ventricular septum Value Ref IVS, ED (H) 1.3 cm 0.6 - Tricuspid valve Value Ref 1.0 TR peak v 2.7 m/sec <=2.8 Peak RV-RA grad, S 29 mm Hg ----- Right ventricle Value Ref AW thickness, ED (H) 0.7 cm 0.1 - Aortic root Value Ref 0.5 Root diam 3.4 cm <4.6 HAILEY, LAX 3.2 cm -------- HAILEY minor ax, A4C (H) 4.9 cm 1.9 - Ascending aorta Value Ref mid 3.5 AAo AP diam, S 3.7 cm ----- Pressure, S 37 mm Hg -------- Pulmonary artery Value Ref Left atrium Value Ref Pressure, S 33.4 mm Hg ----- SI dim ES, LAX 5.1 cm -------- ML dim, A4C 4.3 cm -------- SI dim, A4C 6.8 cm -------- Right atrium Value Ref Estimated RAP 8 mm Hg -------- Legend: (L) and (H) oswaldo values outside specified reference range. Prepared and electronically signed by Johnson Daley MD 02/14/2019 15:43
[2019-02-14] MEDS ORDERED: Warfarin TAB(*) 4 MG PO SCH (17:00)
[2019-02-14] MEDS: Atorvastatin* 10 MG TAB PO SCH (17:16)
[2019-02-14] MEDS: Clindamycin 600 MG/D5W BAG(*) 600 MG/50 ML BAG IV SCH (17:16)
[2019-02-14] MEDS: Lactobacillus Acidophilus* 1 TAB PO SCH (17:16)
[2019-02-14] MEDS ORDERED: Vancomycin(*) 1,250 MG in NS 0.9% 250 ML* 250 ML IVPB SCH (18:00)
[2019-02-14] MEDS: Zolpidem TAB* 5 MG PO PRN (20:56)
[2019-02-14] MEDS: Cyanocobalamin TAB* 500 MCG PO SCH (20:56)
[2019-02-15] MEDS: Clindamycin 600 MG/D5W BAG(*) 600 MG/50 ML BAG IV SCH ×3 (00:30→16:13)
[2019-02-15 07:04] LABS: Hematocrit 41 % (42-52); Hemoglobin 13.6 g/dL (14.0-18.0); Mean Corpuscular HGB Conc 34 g/dL (31-36); Mean Corpuscular Hemoglobin 32 pg (27-31); Mean Corpuscular Volume 95 fL (80-94); Red Blood Count 4.26 10^6 /uL (4.18-5.48); Red Cell Distribution Width 17 % (10-15)
[2019-02-15 07:07] LABS: INR 1.46 (0.82-1.09)
[2019-02-15 07:19] LABS: BUN/Creatinine Ratio 19.2 (8-20); Calcium 8.6 mg/dL (8.6-10.3); EGFR African American 70.7 (>60); EGFR Non-African American 58.4 (>60); Magnesium 2.2 mg/dL (1.9-2.7); Potassium 3.7 mmol/L (3.5-5.0)
[2019-02-15 07:31] LABS: Lymphocyte % 5.1 %; Platelet Count Platelets clumped. 10^3/uL (150-450); White Blood Count 17.7 10^3/uL (3.5-10.8)
[2019-02-15] MEDS: Amiodarone TAB* 200 MG PO SCH (08:07)
[2019-02-15] MEDS: Aspirin EC TAB* 81 MG TAB.EC PO SCH (08:07)
[2019-02-15] MEDS: Cetirizine* 10 MG TAB PO SCH (08:08)
[2019-02-15] MEDS: Atenolol TAB* 50 MG PO SCH (08:08)
[2019-02-15] MEDS: Lactobacillus Acidophilus* 1 TAB PO SCH (08:09)
[2019-02-15] MEDS: Pantoprazole TAB * 40 MG TAB PO SCH (08:09)
[2019-02-15] MEDS: Mometasone/Formoter 200/5 MDI INH SCH ×2 (08:23→19:42)
[2019-02-15] MEDS: SPIRIVA Respimat* (tiotropium) 2.5 mcg/inh Inhaler INH SCH (08:23)
[2019-02-15] MEDS ORDERED: NS 0.9% 500 ML* 500 ML IV ONE ×2 (08:58→15:49)
[2019-02-15] MEDS ORDERED: NIFEdipine ER TAB* 30 MG PO SCH (09:00)
--- NOTE | 2019-02-15 09:01 | PN ---
Subjective Date of Service: 02/15/19 Interval History: No overnight events. Erythema significant improved after starting clindamycin. Pt still with low UOP, and CXR without significant volume overload, so will initiate 500cc of NS at 100cc/hr and follow up UOP. Pt reports pain only on palpation of inner L thigh, still without pain on ROM of L knee. Denies chills or diaphoresis overnight. Denies SOB but still on supplemental O2. Objective Active Medications: Acetaminophen (Tylenol Tab*) 975 mg PO Q8H PRN PRN Reason: Fever Albuterol/Ipratropium (Duoneb (Albuterol 2.5 Mg/Ipratropium 0.5 Mg)) 1 neb INH Q6H PRN PRN Reason: SOB/WHEEZING Last Admin: 02/14/19 18:18 Dose: 1 neb Amiodarone HCl (Cordarone Tab*) 100 mg PO QAM [facility] Last Admin: 02/15/19 08:07 Dose: 100 mg Aspirin (Aspirin Ec Tab*) [facility] Last Admin: 02/15/19 08:07 Dose: 81 mg Atenolol (Tenormin Tab*) 100 mg PO QAM [facility] Last Admin: 02/15/19 08:08 Dose: 100 mg Atorvastatin Calcium (Lipitor*) 10 mg PO QPM [facility] Last Admin: 02/14/19 17:16 Dose: 10 mg Cetirizine HCl (Zyrtec*) 10 mg PO DAILY [facility] Last Admin: 02/15/19 08:08 Dose: 10 mg Cyanocobalamin (Vitamin B12 Tab*) 1,000 mcg PO BEDTIME [facility] Last Admin: 02/14/19 20:56 Dose: 1,000 mcg Clindamycin HCl/Dextrose (Cleocin 600 Mg/50 Ml(*)) 600 mg in 50 mls @ 100 mls/ hr IV Q8H [facility] Last Admin: 02/15/19 08:03 Dose: 100 mls/hr Lactobacillus Rhamnosus (Lactobacillus Acidophilus*) 1 tab PO DAILY [facility] Last Admin: 02/15/19 08:09 Dose: 1 tab Mometasone Furoate/Formoterol Fumar (Dulera 200/5 Mdi*) 2 puff INH BID [facility] Last Admin: 02/15/19 08:23 Dose: 2 puff Nifedipine (Procardia Xl Tab*) 30 mg PO QAM [facility] Last Admin: 02/15/19 08:08 Dose: 30 mg Pantoprazole Sodium (Protonix Tab*) 40 mg PO DAILY [facility] Last Admin: 02/15/19 08:09 Dose: 40 mg Tiotropium [place] (Spiriva Respimat 2.5 Mcg) 2 puff INH QAM [facility] Last Admin: 02/15/19 08:23 Dose: 2 puff Warfarin Sodium (Coumadin Tab(*)) 4 mg PO 1700 RISA; Protocol Last Admin: 02/14/19 17:16 Dose: 4 mg Zolpidem Tartrate (Ambien Tab*) 5 mg PO BEDTIME PRN PRN Reason: SLEEP Last Admin: 02/14/19 20:56 Dose: 5 mg Vital Signs - 8 hr 02/15/19 02/15/19 02/15/19 03:01 08:00 08:28 Temperature 99.3 F Pulse Rate 95 81 81 Respiratory 28 18 18 Rate Blood Pressure 137/67 (mmHg) O2 Sat by Pulse 93 93 93 Oximetry Oxygen Devices in Use Now: Nasal Cannula Appearance: chronically ill appearing elderly man in NAD, alert and interactive , no increased WOB Eyes: No Scleral Icterus Ears/Nose/Mouth/Throat: Clear Oropharnyx, - - dry mm Respiratory: - - bibasilar crackles resolved; no wheeze Cardiovascular: - - irregularly irregular Abdominal: NL Sounds; No Tenderness; No Distention, No Hepatosplenomegaly Extremities: - - 3+ edema over LLE, 2+ over RLE to knee Skin: - - erythema over LLE now brown, less hot, still with tender skin over medial L thigh; no erythema beyond marker line Neurological: Alert and Oriented x 3 Result Diagrams: 02/16/19 07:02 02/16/19 07:02 Microbiology and Other Data: Microbiology 02/14/19 11:55 Nasal Screen MRSA (PCR) - Final Nasal Mrsa Not Detected Assess/Plan/Problems-Billing Assessment: 78M with obesity, COPD, TERESO on CPAP, afib s/p maze on warfarin, CAD s/p 1v bypass, HTN, who presents with chills, weakness, LLE pain/redness, and labored breathing, found with fever, leukocytosis, and leg concerning for cellulitis. - Patient Problems (1) Cellulitis Comment: Nonpurulent over LLE. Over knee but no evidence of joint involvement - full ROM in tact without pain, no effusion. Presented with sepsis. - switch vanc/Zosyn to clinda 600mg IV q8h (02/14 - ) - monitor vitals closely - f/u blood cultures (2) Afib Comment: s/p maze procedure - cont warfarin with INR checks - cont atenolol, amiodarone (3) HTN (hypertension) Comment: - on atenolol 100 and nifedipine 60 at home, will hold the latter given low BP here in setting of infection (4) TERESO (obstructive sleep apnea) Comment: - cont CPAP (5) Asthma Comment: pt actually with COPD. No evidence for exacerbation at this time, but given increase O2 requirements, will continue to monitor closely and start steroids if needed. - cont home Spiriva, Symbicort - nebs prn - monitor O2 with goal 88-92% (6) CAD (coronary artery disease) Comment: - cont home aspirin, bb, atorvastatin (7) DVT prophylaxis Current Visit: No Status: Acute Priority: High Code(s): QJO1482 - SNOMED Code(s): 634178051 Comment: on warfarin (8) Full code status Current Visit: No Status: Acute Priority: High Code(s): Z78.9 - OTHER SPECIFIED HEALTH STATUS SNOMED Code(s): 791521102
--- NOTE | 2019-02-15 13:25 | PN ---
Hospitalist Progress Note Date of Service: 02/15/19 Subjective: Patients erythema and his Pain has decreased since yesterday and he had no overnight events. He has dry mouth, shortness of breath and is hypotensive. Objective: Appearance: Patient was resting on bed comfortably with no complaints. Eyes: No Scleral Icterus Ears/Nose/Mouth/Throat: mucous membranes are dry. Neck: unable to see JVP Respiratory: Lungs were clear to auscultation. Cardiovascular: No Murmurs; regular rate and rhythm. Extremities: Erythema with some edema over left thigh extending down to mcclure, no purulence; Right lower extremity had hyperpigmentation distally. Patient had no pain on palpation. Sensory and strength were intact. knees were warm. Vitals:pulse 74, BP 90/58, O2 94, Temp 97.8, respiration 21 rpm. WBC: 17.7 H Hgb: 13.6 L Hct: 41 L MCV: 95 H MCH: 32 H RDW: 17 H Plt Count: Platelets clumped. H Abs Neuts: 15.8 H Abs Monocytes: 0.9 H Aerobic and anaerobic culture came back positive for Strep Dysgalactiae (group C ) in his blood. Urine output: 150 mL Assessment: Saurabh Sams is a 78 year old male with obesity, COPD, TERESO on CPAP, afib s/p maze on warfarin, CAD s/p 1v bypass, HTN, who presented with chills, weakness, LE pain/redness, and labored breathing, he had fever, leukocytosis, and leg pain concerning for cellulitis. Plan: (1) Cellulitis Nonpurulent over LE. Over knee but no evidence of joint involvement - full ROM intact without pain, no effusion. Presented with sepsis. - Clindamycin 600mg IV q8h - monitor vitals closely (2) Afib Get INR at goal. - continue warfarin with INR checks (today was 1.46 H) - continue atenolol (100 mg PO QAM), amiodarone (100 mg PO QAM) (3) HTN (hypertension) - On atenolol 100 mg PO -stopped the nifedipine 30 mg PO (4) TERESO (obstructive sleep apnea) - continue CPAP (5) Asthma COPD - Tiotropium [place] (2 puff INH QAM) - Mometasone Furoate/Formoterol Fumar 2 puff INH BID - Duoneb (albuterol 2.5 mg/ipratropium 0.5 mg) - monitor O2 with goal 88-92% (6) CAD (coronary artery disease) - continue aspirin (81 mg PO QAM), atorvastatin (10 mg PO QPM) (7) DVT prophylaxis - on warfarin
[2019-02-15] MEDS ORDERED: Warfarin TAB(*) 5 MG PO ONE (17:00)
--- NOTE | 2019-02-15 17:00 | CONS ---
CONSULTATION REPORT: DATE OF CONSULT: 02/15/19 REQUESTING PHYSICIAN: Dr. Browning. CONSULTING SERVICE: Infectious Disease. REASON FOR CONSULT: Left leg infection. IMPRESSION: 1. Left leg cellulitis from mid lower leg to mid upper leg with some lymphangitic spread, group C strep in 4/4 blood culture bottles due to cellulitis. He does also have a mitral valve repair and so has some increased risk of infective endocarditis. 2. Morbid obesity. 3. Chronic venous insufficiency in the bilateral lower extremities. 4. Status post coronary artery bypass and mitral valve repair. 5. Obstructive sleep apnea, on CPAP. RECOMMENDATIONS: Agree with clindamycin 600 mg IV every 8 hours. Recheck blood cultures and please obtain a transesophageal echocardiogram. Assuming that is negative, he should be able to change to oral antibiotics shortly to complete a 14- day course. Need to continue efforts at elevating his legs and wrapping them eventually as they are less tender. We will follow his knee exam to be sure there is no sign of suppurative tenosynovitis, and at current, there is no evidence of a septic arthritis. HISTORY OF PRESENT ILLNESS: This is a 78-year-old man with coronary artery disease and mitral valve repair, admitted with fever and rigors that started a day before admission and he had chills, drenching sweats as well as started to have pain and increasing swelling in the left leg, came to the hospital. His white count was 13,000. Blood cultures were sent, / growing group C strep. I discussed the case with Dr. Browning yesterday and recommended starting clindamycin. Today, the redness is a bit improved he thinks, pain is down, swelling is about the same. He has not had a cellulitis in that leg before. He has not had any shaking chills since yesterday and had a mild sweat overnight. No fever since admission. PAST MEDICAL HISTORY: 1. Morbid obesity. 2. Obstructive sleep apnea, on CPAP. 3. Bilateral venous insufficiency and lymphedema. 4. Coronary artery disease, status post coronary artery bypass graft. 5. Status post mitral valve repair. 6. Status post maze procedure. 7. Hyperlipidemia. 8. Hypertension. 9. Insomnia. 10. Anemia. 11. Thoracic aortic ectasia. ALLERGIES: No known drug allergies. MEDICATIONS: 1. Tylenol. 2. Albuterol inhaler. 3. Amiodarone. 4. Aspirin. 5. Atenolol. 6. Lipitor. 7. Cetirizine. 8. Clindamycin 600 mg every 8 hours. 9. Cyanocobalamin at bedtime. 10. Lactobacillus. 11. Pantoprazole. 12. Spiriva. 13. Zolpidem. SOCIAL HISTORY: He lives in [place] with his . Recent trip to [place]. Nonsmoker and no injection drugs. FAMILY HISTORY: No recurrent infection or tuberculosis. REVIEW OF SYSTEMS: All negative except as noted above to a 14-point review of systems. PHYSICAL EXAM: Vital Signs: Temperature 37, heart rate 80, respiratory rate 18 , blood pressure 90/60, oxygen saturation 95% on 3.5 L by nasal cannula. In general, he is awake, not in distress. Neurologic: He is oriented x3. Follows all commands. Moves all his extremities. HEENT: There are bilateral small conjunctival hemorrhages. Oropharynx without lesions. Neck is supple without mass. Heart is regular rate and rhythm without murmurs, rubs, or gallops. Lungs: Bilateral expiratory wheeze which seems to be more of an upper airway issue. There are no rales. Abdomen: Soft, nontender, nondistended. There are bowel sounds present. Skin: There is no rash. There are bilateral forearm ecchymoses. Musculoskeletal: There is no spine tenderness to palpation. Left knee: There is trace edema. No tenderness to palpation. There is decreased flexion. Normal extension. There is erythema from below the knee to mid thigh, more prominent in dependent areas. There is some induration in that distribution. In the left lower extremity, there is diffuse edema with purplish discoloration and scale. The feet, toenails, there is no gross abnormality. LABORATORY DATA: White blood cell count 17; hemoglobin 13; platelets were clumped today, 232 yesterday. Creatinine 1.2 down from 1.5. ALT was 20. Please see impression and recommendations outlined above, which I discussed with Dr. Browning. Thanks for asking me to see Mr. Sams in consultation. [id number]/[facility] #: [id number] MTDD
[2019-02-15] MEDS: Atorvastatin* 10 MG TAB PO SCH (17:19)
[2019-02-15] MEDS: Cyanocobalamin TAB* 500 MCG PO SCH (20:54)
[2019-02-16] MEDS: Clindamycin 600 MG/D5W BAG(*) 600 MG/50 ML BAG IV SCH ×4 (00:22→23:21)
[2019-02-16] MEDS: Zolpidem TAB* 5 MG PO PRN ×2 (00:29→23:44)
[2019-02-16] MEDS ORDERED: Vancomycin Trough Check NOTE FOLLOW UP ONE (05:30)
[2019-02-16 07:29] LABS: Hematocrit 39 % (42-52); Hemoglobin 13.1 g/dL (14.0-18.0); Mean Corpuscular HGB Conc 34 g/dL (31-36); Mean Corpuscular Hemoglobin 32 pg (27-31); Mean Corpuscular Volume 95 fL (80-94); Platelet Count 191 10^3/uL (150-450); Red Blood Count 4.14 10^6 /uL (4.18-5.48); Red Cell Distribution Width 17 % (10-15); White Blood Count 10.3 10^3/uL (3.5-10.8)
[2019-02-16 07:37] LABS: INR 3.11 (0.82-1.09)
[2019-02-16 07:46] LABS: C Reactive Protein 199.69 mg/L (<8.01); Calcium 8.7 mg/dL (8.6-10.3); EGFR African American 57.7 (>60); EGFR Non-African American 47.7 (>60)
[2019-02-16] MEDS: Amiodarone TAB* 200 MG PO SCH (07:57)
[2019-02-16] MEDS: Cetirizine* 10 MG TAB PO SCH (07:57)
[2019-02-16] MEDS: Pantoprazole TAB * 40 MG TAB PO SCH (07:57)
[2019-02-16] MEDS: Lactobacillus Acidophilus* 1 TAB PO SCH (07:57)
[2019-02-16] MEDS: Atenolol TAB* 50 MG PO SCH (07:57)
[2019-02-16] MEDS: Aspirin EC TAB* 81 MG TAB.EC PO SCH (07:57)
[2019-02-16] MEDS: Mometasone/Formoter 200/5 MDI INH SCH ×2 (08:02→19:54)
[2019-02-16] MEDS: SPIRIVA Respimat* (tiotropium) 2.5 mcg/inh Inhaler INH SCH (08:02)
--- NOTE | 2019-02-16 08:28 | PN ---
Subjective Date of Service: 02/16/19 Interval History: No acute events overnight. No fever in > 24 hours. Patient was given another 500cc fluid bolus and BPs responded appropriately (per BP). Still with O2 requirements. ID consulted yesterday for bacteremia and recommends GERBER, which cannot be performed over the weekend. Pt sitting in chair, interactive with family, eating cereal and drinking coffee this AM. Still has SOB but improved. Pain in medial thigh is improving. No other complaints. Objective Active Medications: Acetaminophen (Tylenol Tab*) 975 mg PO Q8H PRN PRN Reason: Fever Albuterol/Ipratropium (Duoneb (Albuterol 2.5 Mg/Ipratropium 0.5 Mg)) 1 neb INH Q6H PRN PRN Reason: SOB/WHEEZING Last Admin: 02/14/19 18:18 Dose: 1 neb Amiodarone HCl (Cordarone Tab*) 100 mg PO QAM [facility] Last Admin: 02/16/19 07:57 Dose: 100 mg Aspirin (Aspirin Ec Tab*) 81 mg PO QAM [facility] Last Admin: 02/16/19 07:57 Dose: 81 mg Atenolol (Tenormin Tab*) 100 mg PO QAM [facility] Last Admin: 02/16/19 07:57 Dose: 100 mg Atorvastatin Calcium (Lipitor*) 10 mg PO QPM [facility] Last Admin: 02/16/19 18:06 Dose: 10 mg Cetirizine HCl (Zyrtec*) 10 mg PO DAILY [facility] Last Admin: 02/16/19 07:57 Dose: 10 mg Cyanocobalamin (Vitamin B12 Tab*) 1,000 mcg PO BEDTIME [facility] Last Admin: 02/15/19 20:54 Dose: 1,000 mcg Furosemide (Lasix Tab*) 40 mg PO DAILY [facility] Last Admin: 02/16/19 08:48 Dose: 40 mg Clindamycin HCl/Dextrose (Cleocin 600 Mg/50 Ml(*)) 600 mg in 50 mls @ 100 mls/ hr IV Q8H [facility] Last Admin: 02/16/19 16:38 Dose: 100 mls/hr Lactobacillus Rhamnosus (Lactobacillus Acidophilus*) 1 tab PO DAILY [facility] Last Admin: 02/16/19 07:57 Dose: 1 tab Magnesium Hydroxide (Milk Of Magnesia Liq*) 30 ml PO BID PRN PRN Reason: CONSTIPATION Mometasone Furoate/Formoterol Fumar (Dulera 200/5 Mdi*) 2 puff INH BID [facility] Last Admin: 02/16/19 08:02 Dose: 2 puff Pantoprazole Sodium (Protonix Tab*) 40 mg PO DAILY [facility] Last Admin: 02/16/19 07:57 Dose: 40 mg Pharmacy Profile Note (Coumadin Per Pharmacy*) 1 note FOLLOW UP .PER PHARMACY PROTOC RISA; Protocol Prednisone (Deltasone Tab*) 40 mg PO DAILY [facility] Stop: 02/19/19 09:01 Last Admin: 02/16/19 08:48 Dose: 40 mg Tiotropium [place] (Spiriva Respimat 2.5 Mcg) 2 puff INH QAM [facility] Last Admin: 02/16/19 08:02 Dose: 2 puff Zolpidem Tartrate (Ambien Tab*) 5 mg PO BEDTIME PRN PRN Reason: SLEEP Last Admin: 02/16/19 00:29 Dose: 5 mg Vital Signs - 8 hr 02/16/19 02/16/19 02/16/19 03:36 07:46 08:06 Temperature 97.6 F 98.1 F Pulse Rate 73 76 75 Respiratory 18 20 18 Rate Blood Pressure 109/65 114/62 (mmHg) O2 Sat by Pulse 95 96 94 Oximetry Oxygen Devices in Use Now: Nasal Cannula Appearance: well appearing, NAD, pleasant and interactive Ears/Nose/Mouth/Throat: Clear Oropharnyx, Mucous Membranes Moist Neck: - - unable to see JVP given habitus Respiratory: - - crackles over bases, no wheeze Cardiovascular: - - irreg irreg, systolic murmur Extremities: No Edema - 1+ edema b/l to knees, 1+ over L thigh Skin: - - LLE with hyperpigmentation throughout leg to marker line over thigh, redness on posterior thigh also mostly brown; RLE with hyperpigmentation and chronic venous changes distally Neurological: Alert and Oriented x 3 Result Diagrams: 02/16/19 07:02 02/16/19 07:02 Microbiology and Other Data: Microbiology 02/14/19 11:55 Nasal Screen MRSA (PCR) - Final Nasal Mrsa Not Detected Assess/Plan/Problems-Billing Assessment: 78M with obesity, COPD, TERESO on CPAP, afib s/p maze on warfarin, CAD s/p 1v bypass, HTN, who presents with chills, weakness, LLE pain/redness, found with cellulitis and sepsis, with blood cultures with 4/4 growing GCS. - Patient Problems (1) Cellulitis Comment: Nonpurulent over LLE. Over knee but no evidence of joint involvement - full ROM intact without pain, no effusion. Presented with sepsis. BCx with 4/4 growing GCS. - cont clindamycin 600mg IV q8h (02/14 - ) - monitor vitals closely - appreciate ID recs, pending GERBER for endocarditis r/o (2) Asthma Comment: pt actually with COPD. Previously, pt stated he had "labored" breathing but not dyspnea, but now with SOB, so will treat for exacerbation and f/u symptoms. - start prednisone 40mg daily burst - cont home Spiriva, Symbicort - nebs prn - monitor O2 with goal 88-92% (3) Heart failure with preserved ejection fraction Comment: Diastolic dysfunction seen on TTE. Previously on furosemide but held in setting of infection. Now with worsening LE edema and orthopnea. - BPs good today so will restart furosemide 40mg PO daily - monitor BMP/Mg, volume status, Is & Os, daily weights (4) Afib Comment: s/p maze procedure - cont warfarin with INR checks - cont atenolol, amiodarone (5) HTN (hypertension) Comment: - on atenolol 100 and nifedipine 60 at home, will hold the latter given low BP here in setting of infection (6) TERESO (obstructive sleep apnea) Comment: - cont CPAP (7) CAD (coronary artery disease) Comment: - cont home aspirin, bb, atorvastatin (8) DVT prophylaxis Current Visit: No Status: Acute Priority: High Code(s): RSE1554 - SNOMED Code(s): 753353717 Comment: on warfarin (9) Full code status Current Visit: No Status: Acute Priority: High Code(s): Z78.9 - OTHER SPECIFIED HEALTH STATUS SNOMED Code(s): 649460584
--- NOTE | 2019-02-16 08:35 | PN ---
Hospitalist Progress Note Date of Service: 02/16/19 Subjective: Patients erythema and pain has decreased since yesterday and he had no overnight events. Was given 500 cc fluid bolus which brought his BP back up. Objective: Appearance: Patient was resting on bed comfortably. Eyes: No Scleral Icterus Ears/Nose/Mouth/Throat: Clear Oropharnyx, Mucous Membranes are dry. Neck: unable to see JVD Respiratory: Clear to auscultation Cardiovascular: Murmur heard 3/6; regular rate and rhythm. Abdomen: soft and nontender. Extremities: Erythema with some edema over left thigh extending down to mcclure, no purulence; Right lower extremity had hyperpigmentation distally. Patient has some pain on palpation of the inner left thigh. Left knee was warm but range of motion was normal ruling out septic knee. Sensory and strength were intact. No new labs for today. Group C Strep in 4/4 blood culture bottles due to cellulitis. GERBER was ordered but not done yet. Assessment: Saurabh Sams is a 78M with obesity, COPD, TERESO on CPAP, afib s/p maze on warfarin, CAD s/p 1v bypass, HTN, who presented with chills, weakness, LLE pain/ redness, and labored breathing, found with cellulitis and sepsis, with blood cultures with 4/4 growing GCS. Plan: (1)Possible Infective Endocarditis - Group C strep 4/4 was found in blood culture bottles. He has a mitral valve repair and risk of IE. -Treatment: Clindamycin 600 mg IV every 8 hours. Recheck blood cultures and obtain transesophageal echocardiogram (GERBER). If negative, he should be changed to oral antibiotics to complete a 14-day course. (2) Cellulitis - Over knee but no evidence of joint involvement - full ROM intact without pain , effusion or purulence. He presented with hypotensive sepsis, 4/4 growing on bacterial culture. - Treatment: Clindamycin 600mg IV q8h -Elevate legs and wrapping them eventually as they get tender. - monitor vitals closely (3) Afib Get INR at goal. - continue warfarin with INR checks - continue atenolol (100 mg PO QAM), amiodarone (100 mg PO QAM) (4) HTN (hypertension) - On atenolol 100 mg PO -stopped the nifedipine 30 mg PO (5) TERESO (obstructive sleep apnea) - continue CPAP (6) COPD - Tiotropium [place] (2 puff INH QAM) - Mometasone Furoate/Formoterol Fumar 2 puff INH BID - Duoneb (albuterol 2.5 mg/ipratropium 0.5 mg) 1 neb INH Q6H PRN - monitor O2 with goal 88-92% (7)Shortness of breath -Xray findings were consistent with COPD, no evidence of acute findings. -prednisone 50 mg (8) CAD (coronary artery disease) - continue aspirin (81 mg PO QAM), atorvastatin (10 mg PO QPM) (9) Heart failure with preserved ejection fraction Diastolic dysfunction was seen on TTE. Previously he was on furosemide but held in setting of infection. He had worsening LE edema and orthopnea. - He will restart furosemide 40mg PO daily because his blood pressure is back up from hypotensive state. - monitor BMP/Mg, volume status, Is & Os, daily weights (10) DVT prophylaxis - on warfarin
[2019-02-16] MEDS: Furosemide TAB* 40 MG PO SCH (08:48)
[2019-02-16] MEDS: predniSONE TAB* 20 MG PO SCH (08:48)
[2019-02-16] MEDS ORDERED: Magnesium Hydroxide LIQ* 30 ML UDC PO PRN (08:58)
[2019-02-16] MEDS ORDERED: WARFARIN - No Order Today* 1 NOTE MISC FOLLOW UP ONE (17:00)
[2019-02-16] MEDS: Atorvastatin* 10 MG TAB PO SCH (18:06)
[2019-02-16] MEDS: Cyanocobalamin TAB* 500 MCG PO SCH (20:14)
[2019-02-17 07:16] LABS: Calcium 8.9 mg/dL (8.6-10.3); EGFR Non-African American 56.2 (>60); Magnesium 2.4 mg/dL (1.9-2.7)
[2019-02-17] MEDS: Clindamycin 600 MG/D5W BAG(*) 600 MG/50 ML BAG IV SCH ×3 (07:58→23:58)
[2019-02-17] MEDS: SPIRIVA Respimat* (tiotropium) 2.5 mcg/inh Inhaler INH SCH (08:01)
[2019-02-17] MEDS: Mometasone/Formoter 200/5 MDI INH SCH ×2 (08:01→19:56)
[2019-02-17] MEDS: predniSONE TAB* 20 MG PO SCH (08:06)
[2019-02-17] MEDS: Furosemide TAB* 40 MG PO SCH (08:09)
[2019-02-17] MEDS: Atenolol TAB* 50 MG PO SCH (08:09)
[2019-02-17] MEDS: Pantoprazole TAB * 40 MG TAB PO SCH (08:09)
[2019-02-17] MEDS: Cetirizine* 10 MG TAB PO SCH (08:09)
[2019-02-17] MEDS: Lactobacillus Acidophilus* 1 TAB PO SCH (08:10)
[2019-02-17] MEDS: Aspirin EC TAB* 81 MG TAB.EC PO SCH (08:10)
[2019-02-17] MEDS: Amiodarone TAB* 200 MG PO SCH (08:11)
[2019-02-17] MEDS ORDERED: WARFARIN - No Order Today* 1 NOTE MISC FOLLOW UP SCH (09:00)
--- NOTE | 2019-02-17 17:05 | PN ---
Subjective Date of Service: 02/17/19 Interval History: No ON events. Pt now off oxygen. Able to walk the reyna with walker without experiencing dyspnea. Understands plan for GERBER tomorrow. In good spirits. No symptoms. Pain in LLE resolved. Objective Active Medications: Acetaminophen (Tylenol Tab*) 975 mg PO Q8H PRN PRN Reason: Fever Albuterol/Ipratropium (Duoneb (Albuterol 2.5 Mg/Ipratropium 0.5 Mg)) 1 neb INH Q6H PRN PRN Reason: SOB/WHEEZING Last Admin: 02/14/19 18:18 Dose: 1 neb Amiodarone HCl (Cordarone Tab*) 100 mg PO QAM [facility] Last Admin: 02/17/19 08:11 Dose: 100 mg Aspirin (Aspirin Ec Tab*) 81 mg PO QAM [facility] Last Admin: 02/17/19 08:10 Dose: 81 mg Atenolol (Tenormin Tab*) 100 mg PO QAM [facility] Last Admin: 02/17/19 08:09 Dose: 100 mg Atorvastatin Calcium (Lipitor*) 10 mg PO QPM [facility] Last Admin: 02/16/19 18:06 Dose: 10 mg Cetirizine HCl (Zyrtec*) 10 mg PO DAILY [facility] Last Admin: 02/17/19 08:09 Dose: 10 mg Cyanocobalamin (Vitamin B12 Tab*) 1,000 mcg PO BEDTIME [facility] Last Admin: 02/16/19 20:14 Dose: 1,000 mcg Furosemide (Lasix Tab*) 40 mg PO DAILY [facility] Last Admin: 02/17/19 08:09 Dose: 40 mg Clindamycin HCl/Dextrose (Cleocin 600 Mg/50 Ml(*)) 600 mg in 50 mls @ 100 mls/ hr IV Q8H [facility] Last Admin: 02/17/19 15:56 Dose: 100 mls/hr Lactobacillus Rhamnosus (Lactobacillus Acidophilus*) 1 tab PO DAILY [facility] Last Admin: 02/17/19 08:10 Dose: 1 tab Magnesium Hydroxide (Milk Of Magnesia Liq*) 30 ml PO BID PRN PRN Reason: CONSTIPATION Mometasone Furoate/Formoterol Fumar (Dulera 200/5 Mdi*) 2 puff INH BID [facility] Last Admin: 02/17/19 08:01 Dose: 2 puff Pantoprazole Sodium (Protonix Tab*) 40 mg PO DAILY [facility] Last Admin: 02/17/19 08:09 Dose: 40 mg Pharmacy Profile Note (Coumadin Per Pharmacy*) 1 note FOLLOW UP .PER PHARMACY PROTOC RISA; Protocol Pharmacy Profile Note (Coumadin No Order Today*) 1 note FOLLOW UP ONCE RISA Stop: 02/17/19 23:59 Prednisone (Deltasone Tab*) 40 mg PO DAILY [facility] Stop: 02/19/19 09:01 Last Admin: 02/17/19 08:06 Dose: 40 mg Tiotropium [place] (Spiriva Respimat 2.5 Mcg) 2 puff INH QAM [facility] Last Admin: 02/17/19 08:01 Dose: 2 puff Zolpidem Tartrate (Ambien Tab*) 5 mg PO BEDTIME PRN PRN Reason: SLEEP Last Admin: 02/16/19 23:44 Dose: 5 mg Vital Signs - 8 hr 02/17/19 02/17/19 11:53 15:11 Temperature 97.4 F 97.3 F Pulse Rate 67 70 Respiratory 20 20 Rate Blood Pressure 102/54 99/54 (mmHg) O2 Sat by Pulse 95 95 Oximetry Oxygen Devices in Use Now: None Appearance: well appearing man in NAD, wearing robe from home and recently combed hair, pleasant, humorous Eyes: No Scleral Icterus Ears/Nose/Mouth/Throat: Clear Oropharnyx, Mucous Membranes Moist Neck: - - unable to appreciate JVP given habitus Respiratory: Symmetrical Chest Expansion and Respiratory Effort, Clear to Auscultation Cardiovascular: - - irreg irreg, systolic murmur Abdominal: NL Sounds; No Tenderness; No Distention, No Hepatosplenomegaly, - - protuberant Extremities: - - 1+ edema mcfp up shins Skin: - - LLE with hyperpigmentation throughout leg to marker line over anterior thigh, hyperpigmentation over posterior L thigh, nontender; RLE with hyperpigmentation and chronic venous stasis changes distally Result Diagrams: 02/16/19 07:02 02/17/19 06:23 Microbiology and Other Data: Microbiology 02/14/19 11:55 Nasal Screen MRSA (PCR) - Final Nasal Mrsa Not Detected Assess/Plan/Problems-Billing Assessment: 78M with obesity, COPD, TERESO on CPAP, afib s/p maze on warfarin, CAD s/p 1v bypass, HTN, who presents with chills, weakness, LLE pain/redness, found with cellulitis and sepsis, with blood cultures with 4/4 growing GCS. - Patient Problems (1) Cellulitis Comment: Nonpurulent over LLE. Over knee but no evidence of joint involvement - full ROM intact without pain, no effusion. Presented with sepsis. BCx with 4/4 growing GCS. - cont clindamycin 600mg IV q8h (02/14 - ) - monitor vitals closely - appreciate ID recs, pending GERBER for endocarditis r/o (2) Asthma Comment: pt actually with COPD. Previously, pt stated he had "labored" breathing but not dyspnea, but now with SOB, so will treat for exacerbation and f/u symptoms. - cont prednisone 40mg daily, for 4 day burst - cont home Spiriva, Symbicort - nebs prn - monitor O2 with goal 88-92% (3) Heart failure with preserved ejection fraction Comment: Diastolic dysfunction seen on TTE. Previously on furosemide but held in setting of infection, but then had worsening LE edema and orthopnea. - tolerated restart of home furosemide 40mg PO daily - monitor BMP/Mg, volume status, Is & Os, daily weights (4) Afib Comment: s/p maze procedure - cont warfarin with INR checks - cont atenolol, amiodarone (5) HTN (hypertension) Comment: - on atenolol 100 and nifedipine 60 at home, but BPs at goal off home CCB (6) TERESO (obstructive sleep apnea) Comment: - cont CPAP (7) CAD (coronary artery disease) Comment: - cont home aspirin, bb, atorvastatin (8) DVT prophylaxis Current Visit: No Status: Acute Priority: High Code(s): HFG5321 - SNOMED Code(s): 967809846 Comment: on warfarin (9) Full code status Current Visit: No Status: Acute Priority: High Code(s): Z78.9 - OTHER SPECIFIED HEALTH STATUS SNOMED Code(s): 970147544
[2019-02-17] MEDS: Atorvastatin* 10 MG TAB PO SCH (17:35)
[2019-02-17] MEDS: Cyanocobalamin TAB* 500 MCG PO SCH (21:58)
[2019-02-17] MEDS: Zolpidem TAB* 5 MG PO PRN (22:03)
[2019-02-18 05:29] LABS: INR 3.14 (0.82-1.09)
[2019-02-18 05:39] LABS: BUN/Creatinine Ratio 24.8 (8-20); Calcium 8.8 mg/dL (8.6-10.3); EGFR African American 75.7 (>60); EGFR Non-African American 62.6 (>60); Magnesium 2.1 mg/dL (1.9-2.7); Potassium 3.8 mmol/L (3.5-5.0)
[2019-02-18] MEDS: Mometasone/Formoter 200/5 MDI INH SCH (07:05)
[2019-02-18] MEDS: SPIRIVA Respimat* (tiotropium) 2.5 mcg/inh Inhaler INH SCH (07:05)
[2019-02-18] MEDS: Clindamycin 600 MG/D5W BAG(*) 600 MG/50 ML BAG IV SCH (07:09)
--- NOTE | 2019-02-18 08:53 | PN ---
Hospitalist Progress Note Date of Service: 02/18/19 Subjective: Patients erythema and pain has decreased and he had no overnight events. He is able to walk the reyna with walker without experiencing dyspnea. Objective: Appearance: Patient was resting on bed comfortably. Eyes: No Scleral Icterus Ears/Nose/Mouth/Throat: Clear Oropharnyx, Mucous Membranes are dry. Neck: unable to see JVD Respiratory: Clear to auscultation Cardiovascular: Murmur heard 3/6; regular rate and rhythm. Abdomen: soft and nontender. Extremities: Erythema with some edema over left thigh extending down to mcclure, no purulence; Right lower extremity had hyperpigmentation distally. Left knee was warm but range of motion was normal ruling out septic knee. Sensory and strength were intact. INR: 3.14 BUN: 28 H Glucose: 24.8 H Calcium: 101 H GERBER occurred in the morning and there was no evidence of vegetation. Assessment: Saurabh Sams is a 78M with obesity, COPD, TERESO on CPAP, afib s/p maze on warfarin, CAD s/p 1v bypass, HTN, who presented with chills, weakness, LLE pain/ redness, and labored breathing, found with cellulitis and sepsis.. Plan: (2) Cellulitis - Over knee but no evidence of joint involvement - full ROM intact without pain , effusion or purulence. He presented with hypotensive sepsis, 4/4 growing on bacterial culture on 02/14/19. blood venous cultures were negative on 02/16/19. - Treatment: Clindamycin 600mg IV q8h it will be changed to IV oral for the next 10 days. -Elevate legs and wrapping them eventually as they get tender. - monitor vitals closely (3) Afib Get INR at goal of 2-3. - continue warfarin with INR checks. Patient needs appointment with PCP to monitor INR. - continue atenolol (100 mg PO QAM), amiodarone (100 mg PO QAM) (4) HTN (hypertension) - On atenolol 100 mg PO -Continue nifedipine 30 mg PO (5) TERESO (obstructive sleep apnea) - continue CPAP (6) COPD - Tiotropium [place] (2 puff INH QAM) 2.5 mcg - Mometasone Furoate/Formoterol Fumar 2 puff INH BID - Duoneb (albuterol 2.5 mg/ipratropium 0.5 mg) 1 neb INH Q6H PRN - monitor O2 with goal 88-92% (7)Shortness of breath -Xray findings were consistent with COPD, no evidence of acute findings. -prednisone 40 mg PO for 2 more days. (8) CAD (coronary artery disease) - continue aspirin (81 mg PO QAM), atorvastatin (10 mg PO QPM) (9) Heart failure with preserved ejection fraction Diastolic dysfunction was seen on TTE. Previously he was on furosemide but held in setting of infection. He had worsening LE edema and orthopnea. - Tolerated restart of furosemide 40mg PO daily - monitor BMP/Mg, volume status, Is & Os, daily weights (10) DVT prophylaxis - on warfarin
[2019-02-18] MEDS ORDERED: Naloxone* 0.4 MG/ML 1 ML VIAL ONE (09:48)
[2019-02-18] MEDS ORDERED: Lidocaine 2% VISCOUS* 15 ML UDC ONE (09:48)
[2019-02-18] MEDS ORDERED: Midazolam* 1 MG/ML 5 ML VIAL (5 MG) ONE (09:48)
[2019-02-18] MEDS ORDERED: Flumazenil* 0.1 MG/ML 5 ML MDV ONE (09:48)
[2019-02-18] MEDS ORDERED: fentaNYL* 50 MCG/ML 2 ML VIAL (100 MCG VIAL) ONE (09:48)
--- NOTE | 2019-02-18 10:16 | TEE ---
*[facility]* [place] [address] Fax #: [phone] Transesophageal Echocardiogram Patient: Saurabh Sams : 1940 Study Date: 02/18/2019 Age: 78 Gender: M HR: 84 bpm Height: 27.6 in /70 cm BSA: 1.84 m^2 Weight: 300 lb /136.4 kg BMI: 278.3 kg/m^2 *Windows Server Engineer: Karishma Nielsen [facility] *Referring Physician: * Lauren Browning *Reading Physician: * Pérez Ashford MD Indications: Bacteremia. History: Atrial fibrillation. Coronary artery disease. Risk factors: Hypertension. Dyslipidemia. Labs, prior tests, procedures, and surgery: Coronary artery bypass grafting. Mitral valve repair. Conclusions Summary: - Left ventricle: Systolic function is normal. The estimated ejection fraction is 55-60%. Although no diagnostic regional wall motion abnormality is identified, this possibility cannot be completely excluded on the basis of this study. - Right ventricle: Systolic function is normal. - Atrial septum: A PFO is not demonstrated by color Doppler. - Mitral valve: Prior procedures include surgical repair. There is no evidence of a vegetation. There is trace regurgitation. - Aortic valve: There is no evidence of a vegetation. There is mild regurgitation. - Tricuspid valve: There is no evidence of a vegetation. There is moderate regurgitation. - Pulmonic valve: Not well visualized. - Pericardium, extracardiac: There is no significant pericardial effusion. Study data: Diagnostic Transesophageal Echocardiogram Consent: The risks and benefits of the procedure, including alternatives were discussed with the patient and/or their health care circulation sales representative and written informed consent was obtained. Procedure: Initial setup: The patient was brought to the laboratory in the fasting state.Intravenous access was obtained. Surface ECG leads, heart rate, heart rhythm, blood pressure measurements, pulse oximetric signals, and mainstream end-tidal CO2 tracings were monitored throughout the procedure. Sedation. Moderate sedation was administered by nursing staff. History and physical as well as labs were reviewed. An oral bite block was inserted for protection of oral dentition. The patient was placed in the left lateral decubitus position for endocarditis evaluation. Topical anesthesia was obtained using viscous lidocaine. A transesophageal probe was inserted by the attending wing commander. Transesophageal echocardiography was performed, image quality was adequate, and all standard views were attempted within the limitations of patient tolerance and safety. Test was abbreviated due to patient's respiratory status. Multiple 2D, color flow Doppler and spectral Doppler images were obtained. The transesophageal probe was removed. Location: Procedure room. Patient status: Inpatient. Patient room number: 440. Study completion: The patient tolerated the procedure well. There were no complications. Administered medications: Midazolam, 4mg. Fentanyl, 50mcg. Rhythm: Atrial fibrillation. Findings Left ventricle: Not well visualized. Systolic function is normal. The estimated ejection fraction is 55-60%. Although no diagnostic regional wall motion abnormality is identified, this possibility cannot be completely excluded on the basis of this study. Right ventricle: The cavity size is normal. Systolic function is normal. Left atrium: The atrium is moderately dilated. Right atrium: The atrium is moderately dilated. Atrial septum: There is increased thickness of the septum, consistent with lipomatous hypertrophy. A PFO is not demonstrated by color Doppler. 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 Mitral valve: Prior procedures include surgical repair. The leaflets are normal thickness. There is no evidence of a vegetation. There is trace regurgitation. Aortic valve: The annulus is mildly calcified. The valve is trileaflet. The leaflets are normal thickness. There is no evidence of a vegetation. There is no evidence of stenosis. There is mild regurgitation. Tricuspid valve: The annulus is normal-sized. There is no evidence of a vegetation. There is no evidence of stenosis. There is moderate regurgitation. Pulmonic valve: Not well visualized. Aorta: The aortic root appears normal. Pericardium: There is no significant pericardial effusion. Pulmonary arteries: Not well visualized. Systemic veins: Inferior vena cava: The vessel is normal in size. Superior vena cava: The vessel is appears normal. Pulmonary veins: Not well visualized. Measurements Aortic valve Value Ref Tricuspid valve Value Ref [place] diam, ED 2.0 cm ---- TR peak v 2 m/sec <=2.8 [place] diam/bsa, ED 1.1 cm/m^2 ---- Peak RV-RA grad, S 16 mm Hg --------- Mitral valve Value Ref Aortic root Value Ref Peak E 1.37 m/sec ---- Root diam, S 3.1 cm --------- Peak A 0.05 m/sec ---- Decel time 113 ms ---- Ascending aorta Value Ref Peak grad, D 7.5 mm Hg ---- AAo diam 3.5 cm 2.2 - 3.8 Peak E/A ratio 27.4 ---- Legend: (L) and (H) oswaldo values outside specified reference range. Prepared and electronically signed by Pérez Ashford MD 02/18/2019 10:16
[2019-02-18] MEDS: Amiodarone TAB* 200 MG PO SCH (11:02)
[2019-02-18] MEDS: Aspirin EC TAB* 81 MG TAB.EC PO SCH (11:02)
[2019-02-18] MEDS: Furosemide TAB* 40 MG PO SCH (11:03)
[2019-02-18] MEDS: Cetirizine* 10 MG TAB PO SCH (11:03)
[2019-02-18] MEDS: Atenolol TAB* 50 MG PO SCH (11:03)
[2019-02-18] MEDS: predniSONE TAB* 20 MG PO SCH (11:04)
[2019-02-18] MEDS: Lactobacillus Acidophilus* 1 TAB PO SCH (11:04)
[2019-02-18] MEDS: Pantoprazole TAB * 40 MG TAB PO SCH (11:04)
[2019-02-18 11:44] VITALS: BP 123/78
[2019-02-18] MEDS ORDERED: WARFARIN - No Order Today* 1 NOTE MISC FOLLOW UP ONE (12:00)
--- NOTE | 2019-02-18 22:02 | DS ---
CC: Dr. Ellington, [facility] * DISCHARGE SUMMARY: DATE OF ADMISSION: 02/14/19 DATE OF DISCHARGE: 02/18/19 PRINCIPAL DISCHARGE DIAGNOSES: 1. Left lower extremity cellulitis. 2. Sepsis. 3. Bacteremia. 4. COPD exacerbation. 5. Acute on chronic diastolic heart failure. 6. Moderate tricuspid valve regurgitation. SECONDARY DISCHARGE DIAGNOSES: 1. Atrial fibrillation on anticoagulation. 2. Hyperlipidemia. 3. Obstructive sleep apnea. 4. Coronary artery disease. 5. Venous stasis. MEDICATIONS ON DISCHARGE: 1. Zolpidem 5 mg q.h.s. 2. Warfarin 4 mg q.h.s. 3. Atenolol 100 mg daily. 4. Aspirin 81 mg daily. 5. Amiodarone 100 mg daily. 6. Vitamin B12 1000 mcg sublingual daily. 7. Simvastatin 20 mg daily. 8. Spiriva 2 caps inhaled daily. 9. Nifedipine 60 mg daily. 10. Levocetirizine 5 mg daily. 11. Omeprazole 20 mg daily. 12. Prednisone 40 mg daily for 3 more days. 13. Furosemide 40 mg b.i.d. for 3 days and then go back to 40 mg daily. 14. Clindamycin 600 mg every 8 hours for 10 more days. PHYSICAL EXAMINATION AT THE TIME OF DISCHARGE: Vital Signs: Temperature 97.3, heart rate 75, respiratory rate 13, pulse ox 93% on room air, blood pressure 123 /78. General: Alert, well appearing man who was in distress, he is sitting in a chair breathing comfortably visiting with his . HEENT: Pupils equal, round and reactive to light. Oral mucosa is moist. Neck: No JVP, no adenopathy. Chest is in a regular rhythm with no murmurs. His lungs are clear bilaterally. Abdomen is obese, soft, nontender and nondistended. Extremities: He has an area of erythema on his left medial, posterior and lateral thigh that is receding away from the line drawn at admission. It has no induration or fluctuance. He has full range of motion of his left knee. He has marked chronic venous stasis changes in both legs and large varicose veins bilaterally. HOSPITAL COURSE: 1. Left lower extremity cellulitis, resulting in sepsis and bacteremia. When he was admitted on 02/14, he met sepsis criteria and was started on broad- spectrum antibiotics with vancomycin and pip/tazo. Subsequently, his blood cultures from his admission grew 4/4 bottles of Streptococcus dysgalactiae. Subsequent blood cultures were negative. Infectious Disease was consulted and recommended changing to IV clindamycin, which was done. A transthoracic echocardiogram was obtained and showed no vegetation given the history of mitral valve repair and his bacteriemia, a transesophageal echocardiogram was obtained on 02/18, which showed no vegetation. His subsequent blood cultures were negative. Dr. Méndez recommended switching to p.o. antibiotics and he will be continued on p.o. clindamycin at the current dose of 600 mg t.i.d. for a total course of 14 days. He was instructed to return to the emergency department should the erythema extend past the line that was initially drawn should he develop fever, weakness, loss of range of motion of the left knee or any other signs and symptoms of worsening infection. I have discussed this with him and his . Lower extremity Dopplers are negative for DVT bilaterally. 2. COPD exacerbation. He was noted to be wheezing during his admission and was started on p.o. prednisone. This improved his symptoms markedly. 3. Acute on chronic diastolic heart failure. His home furosemide was held at the time of admission and he was given IV fluids given his sepsis. However, he developed orthopnea and dyspnea on exertion and lower extremity edema after several days of holding his home diuretics. So, it was restarted. At the time of discharge, he was approximately 5 pounds over his dry weight, but he has no oxygen requirement, no orthopnea and feels very well. He will double his dose of home Lasix for 3 days and follow up with his primary care provider. 4. Atrial fibrillation, on anticoagulation. He was rate controlled on his home dose of amiodarone and beta-miller during this admission. He was continued on his home dose of warfarin. 5. Supratherapeutic INR. At the time of discharge, his INR is 3.1. He is being continued on his current dose of warfarin and clindamycin is not known to rise the INR or interact with warfarin. So, he will be continued in followup for an INR check in 3 days. I have made this appointment for him and he is aware. DISPOSITION: Mr. Sams is discharged to home on 02/18/19 with his . He has been ambulating in the hallways with no discomfort, no shortness of breath. Both he and his are eager for discharge and they have no concern. I have also discussed the safety at home with his nurse and she also has no concerns while him being at home with his . They have a granddaughter coming to stay with them to help them for the next week. They will follow up with Dr. Ellington at [facility]. CONDITION AT THE TIME OF DISCHARGE: Stable. [id number]/CPS #: [id number] MTDD
== END 2019-02-18 14:48 | disposition home or self-care (01) | DRG 871 ==
LOC: ED 01:36 → MEDTELE 05:36
PROVIDERS: ADMIT Internal Medicine; ATTEND Internal Medicine
PROC: B246ZZ4 Ultrasonography of Right and Left Heart, Transesophageal (ICD-10-PCS; principal; 2019-02-18 08:00)
DX: A40.8 Other streptococcal sepsis (principal); I50.33 Acute on chronic diastolic (congestive) heart failure; L03.116 Cellulitis of left lower limb; J44.1 Chronic obstructive pulmonary disease with (acute) exacerbation; J98.11 Atelectasis; Z68.41 Body mass index [BMI] 40.0-44.9, adult; I11.0 Hypertensive heart disease with heart failure; I48.91 Unspecified atrial fibrillation; I07.1 Rheumatic tricuspid insufficiency; E66.01 Morbid (severe) obesity due to excess calories; D64.89 Other specified anemias; G47.00 Insomnia, unspecified; E78.5 Hyperlipidemia, unspecified; G47.33 Obstructive sleep apnea (adult) (pediatric); R79.1 Abnormal coagulation profile; I25.10 Atherosclerotic heart disease of native coronary artery without angina pectoris; I87.8 Other specified disorders of veins; I83.93 Asymptomatic varicose veins of bilateral lower extremities; I77.810 Thoracic aortic ectasia; Z95.1 Presence of aortocoronary bypass graft; Z99.89 Dependence on other enabling machines and devices; Z79.01 Long term (current) use of anticoagulants; Z79.82 Long term (current) use of aspirin; Z79.51 Long term (current) use of inhaled steroids; Z79.899 Other long term (current) drug therapy; Z87.891 Personal history of nicotine dependence
CPT/HCPCS: 36415; 71045; 71046; 71275; 80048; 80053; 81003; 81015; 83605; 83735; 84484; 85025; 85027; 85610; 85730; 86140; 87040; 87077; 87086; 87186; 87205; 87641; 93005; 93306; 93312; 93325; 93970; 94640; 94660; 99156; 99285; A9270-GY; C8929; J2250; J2310; J2543; J3010; J3370; J3535; J7512; Q9967

== ENCOUNTER 2019-03-01 19:18 | Inpatient (IN) | payer MEDICARE, OTHER ==
[2019-03-01 21:22] LABS: ABS Basophils 0.1 10^3/ul (0-0.2); ABS Lymphocytes 0.7 10^3/ul (1.0-4.8); ABS Monocytes 0.8 10^3/ul (0-0.8); ABS Neutrophils 19.5 10^3/ul (1.5-7.7); Eosinophil % 0.2 %; Hematocrit 39 % (42-52); Hemoglobin 12.7 g/dL (14.0-18.0); Lymphocyte % 3.3 %; Mean Corpuscular HGB Conc 33 g/dL (31-36); Mean Corpuscular Hemoglobin 32 pg (27-31); Mean Corpuscular Volume 97 fL (80-94); Mean Platelet Volume 7.4 fL (7.4-10.4); Platelet Count 396 10^3/uL (150-450); Red Blood Count 4.01 10^6 /uL (4.18-5.48); Red Cell Distribution Width 18 % (10-15); White Blood Count 21.2 10^3/uL (3.5-10.8)
[2019-03-01 21:28] LABS: INR 2.22 (0.82-1.09)
[2019-03-01 21:38] LABS: Albumin 3.3 g/dL (3.2-5.2); Albumin/Globulin Ratio 0.9 (1-3); BUN/Creatinine Ratio 19.7 (8-20); Calcium 8.4 mg/dL (8.6-10.3); EGFR African American 58.2 (>60); EGFR Non-African American 48.1 (>60); Globulin 3.5 g/dL (2-4); Potassium 4.6 mmol/L (3.5-5.0); Total Bilirubin 0.6 mg/dL (0.2-1.0); Total Protein 6.8 g/dL (6.4-8.9); Troponin I 0.02 ng/mL (<0.04)
--- NOTE | 2019-03-01 21:50 | ED ---
Skin Complaint - HPI Summary HPI Summary: This pt is a 78 Y/O M presenting to [facility] accompanied by his family with a CC of a fever that started around 1912-0220 tonight that was 100.6 F. He states that he had shakes and chills with a cough. He states that he is currently taking clindamycin for an infection that was located in his L lower extremity. His states that his R inside knee is beginning to have red streaks that were also present during his last visit to [facility] which resulted in admittance for sepsis. He denies any N/V, abdominal pain, CP, SOB, and headaches. He states no aggravating or alleviating factors. He has a PMHx of AFIB, CAD, Hypertension, and Hypercholesterolemia. He states that he was recently discharged from inpatient care for sepsis that was secondary to cellulitis. - History of Current Complaint Chief Complaint: EDGeneral Time Seen by Provider: 03/01/19 21:42 Stated Complaint: FEVER,INFECTION LAST WEEK PER PT Hx Obtained From: Patient, Family/Digital Manager - Onset/Duration: Started Hours Ago - 5-4, Still Present Skin Exposure Onset/Duration: Hours Ago - 5-4 Timing: Constant Onset Severity: Mild Current Severity: None Pain Intensity: 0 Pain Scale Used: 0-10 Numeric Skin Location: Other: - bilateral lower extremities Aggravating Symptom(s): Nothing Alleviating Symptom(s): Nothing Associated Signs & Symptoms: Negative - N/V, abdominal pain, CP, SOB, and headaches., Fever, Chills, Cough Related History: Other: - Recently was discharged from inpatient care for sepsis secondary to cellulitis. - Additional Pertinent History Primary Care Physician: [id number] - Allergy/Home Medications Allergies/Adverse Reactions: Allergies Allergy/AdvReac Type Severity Reaction Status Date / Time No Known Allergies Allergy Verified 03/01/19 19:32 Home Medications: Home Medications Budesonide/Formote 160/4.5(NF) [Symbicort 160/4.5 (NF)] 2 puff INH BID 03/01/19 [History Confirmed 03/01/19] Clindamycin Cap(NF) [Clindamycin Cap 300 mg Cap(NF)] 600 mg PO TID WITH MEALS [History Confirmed 03/01/19] Cyanocobalamin TAB* [Vitamin B12 TAB*] 1,000 mcg PO BEDTIME 10/04/19 [History Confirmed 03/01/19] LevoCETirizine TAB (NF) [Xyzal TAB (NF)] 5 mg PO DAILY 03/01/19 [History Confirmed 03/01/19] Multivitamin [Multiple Vitamins] 1 tab PO DAILY 03/01/19 [History Confirmed 09/14] NIFEdipine ER TAB* [Procardia Xl TAB*] 60 mg PO QAM 03/01/19 [History Confirmed 03/01/19] Omeprazole CAP (NF) [Prilosec CAP* 20 MG] 20 mg PO DAILY 03/01/19 [History Confirmed 03/01/19] Tiotropium CAP.INH (NF) [Spiriva CAP.INH*] 2 cap.inh INH QAM 03/01/19 [History Confirmed 03/01/19] PMH/Surg Hx/FS Hx/Imm Hx Previously Healthy: Yes Endocrine/Hematology History: Reports: Hx Anemia - SEEING DR. PARKER Denies: Hx Diabetes, Hx Systemic Lupus Erythematosus Cardiovascular History: Reports: Hx Atrial Fibrillation, Hx Coronary Artery Disease - CHOLESTEROL CONTROL WITH MEDS, Hx Hypercholesterolemia, Hx Hypertension, Hx Valvular Heart Disease, Other Cardiovascular Problems/ Disorders - Mitral valve repair Denies: Hx Angina, Hx Congestive Heart Failure, Hx Pacemaker/ICD Respiratory History: Reports: Hx Asthma, Hx Chronic Obstructive Pulmonary Disease (COPD), Hx Sleep Apnea - CPAP, which pt does not use, Other Respiratory Problems/Disorders - PNEUMONIA 2010 GI History: Reports: Hx Gastroesophageal Reflux Disease - Protonix (ins. wouldn' t continue paying for Nexium.), Other GI Disorders - Hernia History: Denies: Hx Chronic Renal Failure, Hx Renal Disease Musculoskeletal History: Denies: Hx Rheumatoid Arthritis Sensory History: Reports: Hx Contacts or Glasses, Hx Hearing Aid Opthamlomology History: Reports: Hx Contacts or Glasses Psychiatric History: Denies: Hx Panic Disorder - Surgical History Surgical History: Yes Surgery Procedure, Year, and Place: mitral valve repair. 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 Negative: Shortness Of Breath Negative: Abdominal Pain, Vomiting, Nausea Positive: Rash - bilateral lower extremities Negative: Headache All Other Systems Reviewed And Are Negative: Yes Physical Exam Triage Information Reviewed: Yes Vital Signs On Initial Exam: Initial Vitals Temp Pulse Resp BP Pulse Ox 99.0 F 96 20 115/69 96 03/01/19 19:25 03/01/19 19:25 03/01/19 19:25 03/01/19 19:25 03/01/19 19:25 Vital Signs Reviewed: Yes Procedures - Sedation Patient Received Moderate/Deep Sedation with Procedure: No Diagnostics - Vital Signs Vital Signs Temp Pulse Resp BP Pulse Ox 03/01/19 19:25 99.0 F 96 20 115/69 96 - Laboratory Lab Results: Lab Results 03/01/19 03/01/19 03/01/19 Range/Units 21:06 21:06 21:06 WBC 21.2 H (3.5-10.8) 10^3/uL RBC 4.01 L (4.18-5.48) 10^6 /uL Hgb 12.7 L (14.0-18.0) g/dL Hct 39 L (42-52) % MCV 97 H (80-94) fL MCH 32 H (27-31) pg MCHC 33 (31-36) g/dL RDW 18 H (10-15) % Plt Count 396 (150-450) 10^3/uL MPV 7.4 (7.4-10.4) fL Neut % (Auto) 92.0 % Lymph % (Auto) 3.3 % Starke % (Auto) 3.9 % Eos % (Auto) 0.2 % Baso % (Auto) 0.6 % Absolute Neuts (auto) 19.5 H (1.5-7.7) 10^3/ul Absolute Lymphs (auto) 0.7 L (1.0-4.8) 10^3/ul Absolute Monos (auto) 0.8 (0-0.8) 10^3/ul Absolute Eos (auto) 0.0 (0-0.6) 10^3/ul Absolute Basos (auto) 0.1 (0-0.2) 10^3/ul Absolute Nucleated RBC 0.0 10^3/ul Nucleated RBC % 0.0 INR (Anticoag Therapy) 2.22 H (0.82-1.09) Sodium 137 (135-145) mmol/L Potassium 4.6 (3.5-5.0) mmol/L Chloride 101 (101-111) mmol/L Carbon Dioxide 27 (22-32) mmol/L Anion Gap 9 (2-11) mmol/L BUN 28 H (6-24) mg/dL Creatinine 1.42 H (0.67-1.17) mg/dL Est GFR ( Amer) 58.2 (>60) Est GFR (Non-Af Amer) 48.1 (>60) BUN/Creatinine Ratio 19.7 (8-20) Glucose 101 H (70-100) mg/dL Lactic Acid (0.5-2.0) mmol/L Calcium 8.4 L (8.6-10.3) mg/dL Total Bilirubin 0.60 (0.2-1.0) mg/dL AST 15 (13-39) U/L ALT 21 (7-52) U/L Alkaline Phosphatase 68 (34-104) U/L Troponin I 0.02 (<0.04) ng/mL Total Protein 6.8 (6.4-8.9) g/dL Albumin 3.3 (3.2-5.2) g/dL Globulin 3.5 (2-4) g/dL Albumin/Globulin Ratio 0.9 L (1-3) 03/01/19 Range/Units 21:06 WBC (3.5-10.8) 10^3/uL RBC (4.18-5.48) 10^6 /uL Hgb (14.0-18.0) g/dL Hct (42-52) % MCV (80-94) fL MCH (27-31) pg MCHC (31-36) g/dL RDW (10-15) % Plt Count (150-450) 10^3/uL MPV (7.4-10.4) fL Neut % (Auto) % Lymph % (Auto) % Starke % (Auto) % Eos % (Auto) % Baso % (Auto) % Absolute Neuts (auto) (1.5-7.7) 10^3/ul Absolute Lymphs (auto) (1.0-4.8) 10^3/ul Absolute Monos (auto) (0-0.8) 10^3/ul Absolute Eos (auto) (0-0.6) 10^3/ul Absolute Basos (auto) (0-0.2) 10^3/ul Absolute Nucleated RBC 10^3/ul Nucleated RBC % INR (Anticoag Therapy) (0.82-1.09) Sodium (135-145) mmol/L Potassium (3.5-5.0) mmol/L Chloride (101-111) mmol/L Carbon Dioxide (22-32) mmol/L Anion Gap (2-11) mmol/L BUN (6-24) mg/dL Creatinine (0.67-1.17) mg/dL Est GFR ( Amer) (>60) Est GFR (Non-Af Amer) (>60) BUN/Creatinine Ratio (8-20) Glucose (70-100) mg/dL Lactic Acid 1.7 (0.5-2.0) mmol/L Calcium (8.6-10.3) mg/dL Total Bilirubin (0.2-1.0) mg/dL AST (13-39) U/L ALT (7-52) U/L Alkaline Phosphatase (34-104) U/L Troponin I (<0.04) ng/mL Total Protein (6.4-8.9) g/dL Albumin (3.2-5.2) g/dL Globulin (2-4) g/dL Albumin/Globulin Ratio (1-3) Result Diagrams: 03/01/19 21:06 03/01/19 21:06 Lab Statement: Any lab studies that have been ordered have been reviewed, and results considered in the medical decision making process. Course/Dx - Course Course Of Treatment: This pt is a 78 Y/O M presenting to [facility] accompanied by his family with a CC of a fever that started around 0470-7451 tonight that was 100.6 F. He states that he had shakes and chills with a cough. He states that he is currently taking clindamycin for an infection that was located in his L lower extremity. His states that his R inside knee is beginning to have red streaks that were also present during his last visit to [facility] which resulted in admittance for sepsis. His PE found that he has the following: Obese, elderly. Vital signs are notable for mild tachycardia and relative hypotension. Pulse is irregularly irregular with tachycardia, no abnormal heart sounds. LE: sever venous stasis change in the legs below the knees. The thighs mostly medially has acute erythema and warmth, does not extend to the groins. No obvious ulcer or abscess. He was admitted to [facility] by Dr. Candelario for cellulitis and sepsis at 2200. He will be given ABX treatment during his ED stay. - Diagnoses Provider Diagnoses: Cellulitis, Sepsis - Physician Notifications Discussed Care Of Patient With: Nino Candelario Time Discussed With Above Provider: 22:00 Instructed by Provider To: Admit As Inpatient Admit/Transition Orders Completed By ED Provider: Yes Discharge ED - Sign-Out/Discharge Documenting (check all that apply): Patient Departure - admitted - Discharge Plan Condition: Guarded Disposition: ADMITTED TO [facility] Referrals: Taylor Pena MD [Primary Care Provider] - - Billing Disposition and Condition Condition: GUARDED Disposition: Admitted to [facility] - Attestation Statements Document Initiated by Nasim: Yes Documenting Scribe: Eugene Lewis Provider For Whom Nasim is Documenting (Include Credential): Quincy Pereira MD Scribmariah Attestation: Eugene Martins, scribed for Quincy Pereira MD on 03/02/19 at 0135. Scribe Documentation Reviewed: Yes Provider Attestation: The documentation as recorded by the Eugene obregon accurately reflects the service I personally performed and the decisions made by me, Quincy Pereira MD Status of Scribe Document: Viewed
[2019-03-01] MEDS ORDERED: Vancomycin(*) 1,500 MG in NS 0.9% 250 ML* 250 ML IVPB ONE (21:54)
[2019-03-01] MEDS ORDERED: NS 0.9% 250 ML* 250 ML ONE (22:44)
[2019-03-01 23:45] LABS: Urine Appearance Turbid; Urine Bacteria 1+ (Absent); Urine Bilirubin Negative (Negative); Urine Blood 1+ (Negative); Urine Color Amber; Urine Glucose Negative (Negative); Urine Ketones Negative (Negative); Urine Nitrite Positive (Negative); Urine Protein 1+(30 mg/dL) (Negative); Urine Red Blood Cell 3+(>10/hpf) (Absent); Urine Specific Gravity 1.016 (1.010-1.030); Urine Squamous Epithelial Cell Present (Absent); Urine Urobilinogen Negative (Negative); Urine White Blood Cell 3+(>20/hpf) (Absent)
[2019-03-02] MEDS ORDERED: Piperacillin/Tazobac ADVAN(*) 3.375 GM in NS 0.9% 100 ML* 100 ML IVPB ONE (02:33)
[2019-03-02] MEDS ORDERED: Zosyn per Pharmacy* NOTE FOLLOW UP SCH (03:00)
[2019-03-02] MEDS ORDERED: Vancomycin per Pharmacy* NOTE FOLLOW UP SCH (03:00)
[2019-03-02] MEDS: Zolpidem TAB* 5 MG PO PRN ×2 (03:39→21:41)
[2019-03-02] MEDS: Vancomycin(*) 1,000 MG in NS 0.9% 250 ML* 250 ML IVPB SCH ×3 (05:24→21:38)
--- NOTE | 2019-03-02 05:38 | HP ---
CC: Dr. Taylor Ellington * HISTORY AND PHYSICAL: DATE OF ADMISSION: 03/02/19 CHIEF COMPLAINT: Fever and chills. HISTORY OF PRESENT ILLNESS: This is a 78-year-old male with past medical history of asthma, atrial fibrillation, coronary artery disease, status post single-vessel bypass graft, status post maze ablation, status post mitral valve repair, and recently admitted from 02/14/19 to 02/18/19 for cellulitis. He was noted to have blood cultures that were positive for Streptococcus dysgalactiae group C, which was sensitive to all antibiotics. He was discharged home on with oral clindamycin, which he still continues to take as of yesterday. Yesterday, noticed that the patient was having severe shaking chills and had a temperature of 100.7, which is much higher. He usually runs around 97 according to and the patient. The also noticed that the patient was having some increased cough and some labored breathing and has had slept all day and was feeling weak. So, finally she decided to bring him to the ER for evaluation. The patient also recently had a fall and scraped his knee. On that day he refused to come to the ER. He scraped his right leg. also noticed some increasing redness, especially around his thigh, which is new. He denies any nausea or vomiting, and he denies any urinary symptoms, although he did notice that he has been having increased frequency of urination, but did not pee a lot during these episodes. Otherwise, he denies any other numbness, tingling or dizziness. PAST MEDICAL HISTORY: As mentioned, asthma, atrial fibrillation, on Coumadin, coronary artery disease, status post triple procedure of single-vessel bypass, mitral valve repair and maze ablation, history of hyperlipidemia, obstructive sleep apnea, on CPAP, hypertension, chronic bilateral lower extremity venous stasis with venous stasis changes, insomnia, chronic anemia, aortic ectasia, and multiple episodes of admission for cellulitis, most recent one being from to 02/18/19. PAST SURGICAL HISTORY: As mentioned, triple procedure in 2007, which included mitral valve repair, single-vessel bypass grafting of his heart and concurrent maze ablation. He also has history of vasectomy. HOME MEDICATIONS: The patient is currently on: 1. Multivitamin 1 tablet oral daily. 2. Omeprazole 20 mg oral daily. 3. Lasix 40 mg oral p.o. b.i.d. 4. Symbicort 2 puffs via inhalation b.i.d. 5. Procardia 60 mg every morning. 6. Xyzal 5 mg oral daily. 7. Spiriva 2 puffs via inhalation every morning. 8. Zocor 20 mg every evening. 9. Vitamin B12, 1000 mcg p.o. at bedtime. 10. Amiodarone 100 mg every morning. 11. Ambien 5 mg at bedtime p.r.n. 12. Coumadin 4 mg every evening. 13. Atenolol 100 mg every morning. 14. Aspirin 81 mg every morning. 15. Clindamycin 600 mg p.o. t.i.d. with meals. ALLERGIES: The patient has no known drug allergies. FAMILY HISTORY: Noncontributory at his age of 78. SOCIAL HISTORY: He quit smoking roughly 40 years ago. He lives with his , who is his healthcare proxy. He denies any alcohol or drug use. The patient is full code. REVIEW OF SYSTEMS: A 14-point review of systems did not reveal any new information, other than what is stated in the HPI. PHYSICAL EXAMINATION GENERAL: The patient is awake, alert, oriented x3, did not appear in any acute respiratory distress, was noted to be a bit tachypneic and required oxygenation to saturate at 94%, with 2 L nasal cannula. VITAL SIGNS: BP was noted to be 106/64, heart rate 86, respiration rate 20, temperature maximum was recorded at 99 degrees Fahrenheit in the ER and, as mentioned, oxygen saturation was 94% on 2 L nasal cannula. HEENT: Atraumatic, normocephalic. Bilateral pupils are reactive. Oral mucosa was moist. NECK: Supple. No jugular venous distention. LUNGS: Clear to auscultation bilaterally. No wheezing, rhonchi, or rales. HEART: S1 and S2. Regular rate and rhythm. ABDOMEN: Obese, soft, nontender. EXTREMITIES: The patient had bilateral lower extremity venous stasis changes with pitting edema reaching all the way to the thighs. There is an open scrape wound on the right mcclure, which was oozing, but not purulent, just serosanguineous. There is erythema, especially around his thigh, which is warm on bilateral thighs, left worse than right, a likely source of his infection. DIAGNOSTIC STUDIES/LABORATORY DATA: CBC showed elevated white count of 21, 000. Hemoglobin and hematocrit are stable. Platelet count was 396,000. Coagulation profile is therapeutic at 2.22. Comprehensive metabolic panel shows elevated BUN at 28, creatinine at 1.42, but this is his baseline. Lactic acid is 1.7. LFTs are within normal limits. Urinalysis was nitrite positive and 3+ leukocyte esterase positive, and 1+ blood. IMPRESSION: This is a 78-year-old gentleman with past medical history of cellulitis, recently discharged, roughly 2 weeks ago, here again with fever and white count, likely sepsis secondary to cellulitis, questionable component of UTI. ASSESSMENT: 1. Sepsis secondary to cellulitis versus urinary tract infection: We will start the patient on broad-spectrum antibiotics with vancomycin and Zosyn, titrate via Pharmacy. Follow up cultures and monitor the patient on telemetry. 2. History of congestive heart failure: We will restart his Lasix, but hold the rest of his BP medications as the patient has some low-end normal blood pressures and even the diuretics we will place holding parameters on it to prevent any hypotensive episodes. 3. History of hypertension: As mentioned, in congestive heart failure. We will hold some BP medications and place parameters on the Lasix. 4. History of obstructive sleep apnea: We will restart his nightly CPAP. 5. History of atrial fibrillation: We will continue with Coumadin. 6. History of hyperlipidemia: We will continue the simvastatin. 7. History of GERD: We will continue his proton pump inhibitor. 8. DVT prophylaxis: The patient is already on therapeutic Coumadin. 9. Code status: The patient is a full code with the being healthcare proxy. [id number]/[facility] #: [id number] [facility]ED[facility]
[2019-03-02 06:20] LABS: ABS Basophils 0.1 10^3/ul (0-0.2); ABS Lymphocytes 0.8 10^3/ul (1.0-4.8); ABS Monocytes 0.7 10^3/ul (0-0.8); ABS Neutrophils 15.5 10^3/ul (1.5-7.7); Eosinophil % 0.1 %; Hematocrit 36 % (42-52); Hemoglobin 11.8 g/dL (14.0-18.0); Lymphocyte % 4.6 %; Mean Corpuscular HGB Conc 33 g/dL (31-36); Mean Corpuscular Hemoglobin 32 pg (27-31); Mean Corpuscular Volume 96 fL (80-94); Nucleated Red Blood Cells % 0.1; Platelet Count 371 10^3/uL (150-450); Red Blood Count 3.75 10^6 /uL (4.18-5.48); Red Cell Distribution Width 18 % (10-15); White Blood Count 17.1 10^3/uL (3.5-10.8)
[2019-03-02 06:25] LABS: BUN/Creatinine Ratio 19.9 (8-20); Calcium 8.3 mg/dL (8.6-10.3); EGFR African American 58.7 (>60); EGFR Non-African American 48.5 (>60); Potassium 4.2 mmol/L (3.5-5.0)
[2019-03-02] MEDS: SPIRIVA Respimat* (tiotropium) 2.5 mcg/inh Inhaler INH SCH (07:40)
[2019-03-02] MEDS: Mometasone/Formoter 200/5 MDI INH SCH ×2 (07:40→19:40)
[2019-03-02] MEDS: ZOSYN 3.375 GM Q8H per EXTENDED INFUSION IVPB SCH ×4 (08:13→16:23)
[2019-03-02] MEDS: Amiodarone TAB* 200 MG PO SCH (08:52)
[2019-03-02] MEDS: Aspirin EC TAB* 81 MG TAB.EC PO SCH (08:52)
[2019-03-02] MEDS: Furosemide TAB* 40 MG PO SCH ×2 (08:52→22:00)
[2019-03-02] MEDS: Multivitamins/Minerals TAB PO SCH (08:53)
[2019-03-02] MEDS: Pantoprazole TAB * 40 MG TAB PO SCH (08:53)
[2019-03-02] MEDS ORDERED: Furosemide TAB* 40 MG PO SCH (09:00)
[2019-03-02] MEDS ORDERED: Albuterol/Ipratropium NEB.SOL* Albuterol 2.5 MG/Ipratropium 0.5 MG 3 ML INH PRN (10:49)
--- NOTE | 2019-03-02 15:52 | PN ---
Subjective Date of Service: 03/02/19 Interval History: No fever overnight. Patient required 2L InO2 overnight. Mild cough, no SOB. Objective Active Medications: Albuterol/Ipratropium (Duoneb (Albuterol 2.5 Mg/Ipratropium 0.5 Mg)) 1 neb INH Q4H PRN PRN Reason: SHORTNESS OF BREATH Amiodarone HCl (Cordarone Tab*) 100 mg PO QAM [facility] Last Admin: 03/02/19 08:52 Dose: 100 mg Aspirin (Aspirin Ec Tab*) 81 mg PO QAM [facility] Last Admin: 03/02/19 08:52 Dose: 81 mg Atorvastatin Calcium (Lipitor*) 10 mg PO QPM [facility] Cyanocobalamin (Vitamin B12 Tab*) 1,000 mcg PO BEDTIME [facility] Furosemide (Lasix Tab*) 40 mg PO BID [facility] Last Admin: 03/02/19 08:52 Dose: 40 mg Piperacillin Sod/Tazobactam (Sod 3.375 gm/ Sodium Chloride) 100 mls @ 25 mls/ hr IVPB Q8H [facility] Last Admin: 03/02/19 08:13 Dose: 25 mls/hr Vancomycin HCl 1,000 mg/ (Sodium Chloride) 250 mls @ 166.667 mls/hr IVPB Q8H [facility] Last Admin: 03/02/19 13:26 Dose: 166.667 mls/hr Mometasone Furoate/Formoterol Fumar (Dulera 200/5 Mdi*) 2 puff INH BID [facility]; Protocol Last Admin: 03/02/19 07:40 Dose: Not Given Multivitamins/Minerals (Theragran/Minerals Tab*) 1 tab PO DAILY [facility] Last Admin: 03/02/19 08:53 Dose: 1 tab Pantoprazole Sodium (Protonix Tab*) 40 mg PO DAILY [facility] Last Admin: 03/02/19 08:53 Dose: 40 mg Pharmacy Consult (Vancomycin Per Pharmacy*) 1 note FOLLOW UP .VANC PER PHARMACY [facility]; Protocol Pharmacy Consult (Zosyn Per Pharmacy*) 1 note FOLLOW UP .ZOSYN PER PHARMACY [facility] Pharmacy Profile Note (Vancomycin Trough Check) 1 note FOLLOW UP 0600 ONE Stop: 03/03/19 06:01 Tiotropium [place] (Spiriva Respimat 2.5 Mcg) 2 puff INH QAM [facility] Last Admin: 03/02/19 07:40 Dose: Not Given Warfarin Sodium (Coumadin Tab(*)) 4 mg PO 1700 [facility]; Protocol Zolpidem Tartrate (Ambien Tab*) 5 mg PO BEDTIME PRN PRN Reason: SLEEP Last Admin: 03/02/19 03:39 Dose: 5 mg Vital Signs - 8 hr 03/02/19 03/02/19 08:00 11:13 Temperature 98.5 F Pulse Rate 90 Respiratory 18 22 Rate Blood Pressure 148/85 (mmHg) Oxygen Devices in Use Now: Nasal Cannula Exam: Appearance: sitting on the recliner, comfortable. Eyes: No Scleral Icterus Ears/Nose/Mouth/Throat: NL Teeth, Lips, Gums Neck: NL Appearance and Movements; NL JVP Respiratory: wheezing on auscultation. Cardiovascular: RRR, no murmur Abdominal: soft non tender Lymphatic: No Cervical Adenopathy Extremities: right pedal edema up to ankle. Skin: Bilateral LL venous stasis changes up to mid calves. Right anterior mcclure shallow ulcer with purulent base, but no discharge/pus. Right thigh medial aspect erythema, swelling and warm, left thigh medial aspect erythema with oozing, warm, no obvious broken skin. Result Diagrams: 03/02/19 05:54 03/02/19 05:54 Additional Lab and Data: Lab Results 03/01/19 03/01/19 03/01/19 Range/Units 21:06 21:06 21:06 WBC 21.2 H (3.5-10.8) 10^3/uL RBC 4.01 L (4.18-5.48) 10^6 /uL Hgb 12.7 L (14.0-18.0) g/dL Hct 39 L (42-52) % MCV 97 H (80-94) fL MCH 32 H (27-31) pg MCHC 33 (31-36) g/dL RDW 18 H (10-15) % Plt Count 396 (150-450) 10^3/uL MPV 7.4 (7.4-10.4) fL Neut % (Auto) 92.0 % Lymph % (Auto) 3.3 % [place] % (Auto) 3.9 % Eos % (Auto) 0.2 % Baso % (Auto) 0.6 % Absolute Neuts (auto) 19.5 H (1.5-7.7) 10^3/ul Absolute Lymphs (auto) 0.7 L (1.0-4.8) 10^3/ul Absolute Monos (auto) 0.8 (0-0.8) 10^3/ul Absolute Eos (auto) 0.0 (0-0.6) 10^3/ul Absolute Basos (auto) 0.1 (0-0.2) 10^3/ul Absolute Nucleated RBC 0.0 10^3/ul Nucleated RBC % 0.0 INR (Anticoag Therapy) 2.22 H (0.82-1.09) Sodium 137 (135-145) mmol/L Potassium 4.6 (3.5-5.0) mmol/L Chloride 101 (101-111) mmol/L Carbon Dioxide 27 (22-32) mmol/L Anion Gap 9 (2-11) mmol/L BUN 28 H (6-24) mg/dL Creatinine 1.42 H (0.67-1.17) mg/dL Est GFR ( Amer) 58.2 (>60) Est GFR (Non-Af Amer) 48.1 (>60) BUN/Creatinine Ratio 19.7 (8-20) Glucose 101 H (70-100) mg/dL Lactic Acid (0.5-2.0) mmol/L Calcium 8.4 L (8.6-10.3) mg/dL Total Bilirubin 0.60 (0.2-1.0) mg/dL AST 15 (13-39) U/L ALT 21 (7-52) U/L Alkaline Phosphatase 68 (34-104) U/L Troponin I 0.02 (<0.04) ng/mL Total Protein 6.8 (6.4-8.9) g/dL Albumin 3.3 (3.2-5.2) g/dL Globulin 3.5 (2-4) g/dL Albumin/Globulin Ratio 0.9 L (1-3) 03/01/19 Range/Units 21:06 WBC (3.5-10.8) 10^3/uL RBC (4.18-5.48) 10^6 /uL Hgb (14.0-18.0) g/dL Hct (42-52) % MCV (80-94) fL MCH (27-31) pg MCHC (31-36) g/dL RDW (10-15) % Plt Count (150-450) 10^3/uL MPV (7.4-10.4) fL Neut % (Auto) % Lymph % (Auto) % [place] % (Auto) % Eos % (Auto) % Baso % (Auto) % Absolute Neuts (auto) (1.5-7.7) 10^3/ul Absolute Lymphs (auto) (1.0-4.8) 10^3/ul Absolute Monos (auto) (0-0.8) 10^3/ul Absolute Eos (auto) (0-0.6) 10^3/ul Absolute Basos (auto) (0-0.2) 10^3/ul Absolute Nucleated RBC 10^3/ul Nucleated RBC % INR (Anticoag Therapy) (0.82-1.09) Sodium (135-145) mmol/L Potassium (3.5-5.0) mmol/L Chloride (101-111) mmol/L Carbon Dioxide (22-32) mmol/L Anion Gap (2-11) mmol/L BUN (6-24) mg/dL Creatinine (0.67-1.17) mg/dL Est GFR ( Amer) (>60) Est GFR (Non-Af Amer) (>60) BUN/Creatinine Ratio (8-20) Glucose (70-100) mg/dL Lactic Acid 1.7 (0.5-2.0) mmol/L Calcium (8.6-10.3) mg/dL Total Bilirubin (0.2-1.0) mg/dL AST (13-39) U/L ALT (7-52) U/L Alkaline Phosphatase (34-104) U/L Troponin I (<0.04) ng/mL Total Protein (6.4-8.9) g/dL Albumin (3.2-5.2) g/dL Globulin (2-4) g/dL Albumin/Globulin Ratio (1-3) Assess/Plan/Problems-Billing Assessment: 78 y/o male with history of asthma, mitral valve repair, recent admission for cellulitis, presented with acute onset of fever and chills, found to have persistent cellulitis and bacteriuria. - Patient Problems (1) Cellulitis Current Visit: No Status: Acute Priority: High Code(s): L03.90 - CELLULITIS, UNSPECIFIED SNOMED Code(s): 969119834 Comment: Erythema, warmth, swelling over bilateral thighs; worsening from last admission based on the documentation on physical exam. Resistant to clindamycin treatment, or underlying infection like endocarditis, septic joint contributing to unresolving infectionm, all likely - continue iv zosyn and vancomycin - will wait blood culture and urine cs results first before jumping into further investigation for other infectious focus. (2) Bacteriuria Current Visit: Yes Status: Acute Code(s): R82.71 - BACTERIURIA SNOMED Code (s): 79928182 Comment: -a/w urine cs -broad coverage with current abx iv zosyn and vancomycin (3) Creatinine elevation Current Visit: Yes Status: Acute Code(s): R79.89 - OTHER SPECIFIED ABNORMAL FINDINGS OF BLOOD CHEMISTRY SNOMED Code(s): 924763212 Comment: - baseline creatnine 1.13, current creatinine 1.4 - could be due to dehydration or infection related - watch creatinine for now, encourage oral intake (4) HTN (hypertension) Current Visit: No Status: Acute Priority: High Code(s): I10 - ESSENTIAL ( PRIMARY) HYPERTENSION SNOMED Code(s): 74323002 Comment: - hold off antihypertensive except lasix for now in view of infection (5) COPD (chronic obstructive pulmonary disease) Current Visit: Yes Status: Acute Code(s): J44.9 - CHRONIC OBSTRUCTIVE PULMONARY DISEASE, UNSPECIFIED SNOMED Code(s): 23546650 Comment: on ICS/LABA, LAMA at home, no JERILYN noted wheezing today though no desat start Duoneb for symptom relief as well (6) DVT prophylaxis Current Visit: No Status: Acute Priority: High Code(s): JHE6881 - SNOMED Code(s): 503528085 Comment: on warfarin Status and Disposition: Inpatient Medicine. Attestation Documenting Resident: Uyen Rangel Supervising Physician: Lalito Owen Attending/Supervising Physician Comment: Agree with plan as outlined in Dr. Rangel's note from today unless indicated here. 78 M recent a/w bacteremia and cellulitis went home still on clindamycin but developed fevers/chills returned with leukocytosis and continued cellulitis. Suspect failed PO steroids vs new infection vs uncontrolled source. Broad spectrum abx, await urine cultures and blood cultures. Attestation: This service has been performed in part by a resident under the direction of a teaching physician.I, Lalito Owen, performed the service, or was physically present during the critical, or santizo portions of the service, furnished by the resident. I participated in the management of the patient.
[2019-03-02] MEDS: Warfarin TAB(*) 4 MG PO SCH (16:38)
[2019-03-02] MEDS: Atorvastatin* 10 MG TAB PO SCH (16:38)
[2019-03-02] MEDS: Cyanocobalamin TAB* 500 MCG PO SCH (22:00)
[2019-03-03] MEDS: ZOSYN 3.375 GM Q8H per EXTENDED INFUSION IVPB SCH ×8 (00:44→22:45)
[2019-03-03] MEDS ORDERED: Vancomycin Trough Check NOTE FOLLOW UP ONE (06:00)
[2019-03-03] MEDS: SPIRIVA Respimat* (tiotropium) 2.5 mcg/inh Inhaler INH SCH (07:10)
[2019-03-03] MEDS: Mometasone/Formoter 200/5 MDI INH SCH ×2 (07:10→19:19)
[2019-03-03] MEDS: Vancomycin(*) 1,000 MG in NS 0.9% 250 ML* 250 ML IVPB SCH (07:47)
[2019-03-03] MEDS: Aspirin EC TAB* 81 MG TAB.EC PO SCH (10:30)
[2019-03-03] MEDS: Multivitamins/Minerals TAB PO SCH (10:30)
[2019-03-03] MEDS: Furosemide TAB* 40 MG PO SCH ×2 (10:30→20:39)
[2019-03-03] MEDS: Pantoprazole TAB * 40 MG TAB PO SCH (10:30)
[2019-03-03] MEDS: Amiodarone TAB* 200 MG PO SCH (10:30)
--- NOTE | 2019-03-03 10:36 | PN ---
Subjective Date of Service: 03/03/19 Interval History: WBC slightly improved No fevers Bcx negative urine pending +DEBBIE - Seen with , son and [id number] at bedside feeling well, no chills, appetite good, ate breakfast no urinary symptoms but reports had hesitancy prior to presentation although hard to say for how long - it may have been for months, but unsure had productive cough x 2 days at home no other uri symptoms legs feel ok, no pain Usually ambulates at home unassisted, not OOB yet here Off oxygen this AM Objective Active Medications: Albuterol/Ipratropium (Duoneb (Albuterol 2.5 Mg/Ipratropium 0.5 Mg)) 1 neb INH Q4H PRN PRN Reason: SHORTNESS OF BREATH Amiodarone HCl (Cordarone Tab*) 100 mg PO QAM [facility] Last Admin: 03/03/19 10:30 Dose: 100 mg Aspirin (Aspirin Ec Tab*) 81 mg PO QAM [facility] Last Admin: 03/03/19 10:30 Dose: 81 mg Atorvastatin Calcium (Lipitor*) 10 mg PO QPM [facility] Last Admin: 03/02/19 16:38 Dose: 10 mg Cyanocobalamin (Vitamin B12 Tab*) 1,000 mcg PO BEDTIME [facility] Last Admin: 03/02/19 22:00 Dose: 1,000 mcg Furosemide (Lasix Tab*) 40 mg PO BID [facility] Last Admin: 03/03/19 10:30 Dose: 40 mg Piperacillin Sod/Tazobactam (Sod 3.375 gm/ Sodium Chloride) 100 mls @ 25 mls/ hr IVPB Q8H [facility] Last Admin: 03/03/19 00:44 Dose: 25 mls/hr Vancomycin HCl 1,000 mg/ (Sodium Chloride) 250 mls @ 166.667 mls/hr IVPB Q8H [facility] Last Admin: 03/03/19 07:47 Dose: 166.667 mls/hr Mometasone Furoate/Formoterol Fumar (Dulera 200/5 Mdi*) 2 puff INH BID [facility]; Protocol Last Admin: 03/03/19 07:10 Dose: 2 puff Multivitamins/Minerals (Theragran/Minerals Tab*) 1 tab PO DAILY [facility] Last Admin: 03/03/19 10:30 Dose: 1 tab Pantoprazole Sodium (Protonix Tab*) 40 mg PO DAILY [facility] Last Admin: 03/03/19 10:30 Dose: 40 mg Pharmacy Consult (Vancomycin Per Pharmacy*) 1 note FOLLOW UP .VANC PER PHARMACY [facility]; Protocol Pharmacy Consult (Zosyn Per Pharmacy*) 1 note FOLLOW UP .ZOSYN PER PHARMACY [facility] Pharmacy Profile Note (Vancomycin Trough Check) 1 note FOLLOW UP ONCE ONE Stop: 03/05/19 05:31 Tiotropium [place] (Spiriva Respimat 2.5 Mcg) 2 puff INH QAM [facility] Last Admin: 03/03/19 07:10 Dose: 2 puff Warfarin Sodium (Coumadin Tab(*)) 4 mg PO 1700 [facility]; Protocol Last Admin: 03/02/19 16:38 Dose: 4 mg Zolpidem Tartrate (Ambien Tab*) 5 mg PO BEDTIME PRN PRN Reason: SLEEP Last Admin: 03/02/19 21:41 Dose: 5 mg Vital Signs - 8 hr 03/03/19 03/03/19 03/03/19 03:18 07:14 07:15 Temperature 97.1 F Pulse Rate 85 76 76 Respiratory 20 18 18 Rate Blood Pressure 105/60 (mmHg) O2 Sat by Pulse 100 94 94 Oximetry 03/03/19 07:30 Temperature 97.5 F Pulse Rate 92 Respiratory 20 Rate Blood Pressure 100/54 (mmHg) O2 Sat by Pulse 94 Oximetry Oxygen Devices in Use Now: None Appearance: sitting in chair, NAD Eyes: No Scleral Icterus, PERRLA Ears/Nose/Mouth/Throat: Clear Oropharnyx, Mucous Membranes Moist Neck: NL Appearance and Movements; NL JVP, Trachea Midline Respiratory: Symmetrical Chest Expansion and Respiratory Effort, Clear to Auscultation Cardiovascular: RRR, - - 2/6 JIMENA Abdominal: NL Sounds; No Tenderness; No Distention, No Hepatosplenomegaly Lymphatic: No Cervical Adenopathy Extremities: - - b/l LE pitting edema 3+ to the scrotum Skin: - - b/l legs with chronic venous stasis changes, right pretibial with ulcer that has clean margins small amount of discharge, right thigh posterior with skin breakdown, b/l thighs medially arm slightly red, not warm, not well demarcated; left forearm with small red area in previous IV spot not hot no cords, left knee with suprapatellar effusion NTTP, FROM in knee Result Diagrams: 03/02/19 05:54 03/02/19 05:54 Additional Lab and Data: Lab Results 03/01/19 03/01/19 03/01/19 Range/Units 21:06 21:06 21:06 WBC 21.2 H (3.5-10.8) 10^3/uL RBC 4.01 L (4.18-5.48) 10^6 /uL Hgb 12.7 L (14.0-18.0) g/dL Hct 39 L (42-52) % MCV 97 H (80-94) fL MCH 32 H (27-31) pg MCHC 33 (31-36) g/dL RDW 18 H (10-15) % Plt Count 396 (150-450) 10^3/uL MPV 7.4 (7.4-10.4) fL Neut % (Auto) 92.0 % Lymph % (Auto) 3.3 % [place] % (Auto) 3.9 % Eos % (Auto) 0.2 % Baso % (Auto) 0.6 % Absolute Neuts (auto) 19.5 H (1.5-7.7) 10^3/ul Absolute Lymphs (auto) 0.7 L (1.0-4.8) 10^3/ul Absolute Monos (auto) 0.8 (0-0.8) 10^3/ul Absolute Eos (auto) 0.0 (0-0.6) 10^3/ul Absolute Basos (auto) 0.1 (0-0.2) 10^3/ul Absolute Nucleated RBC 0.0 10^3/ul Nucleated RBC % 0.0 INR (Anticoag Therapy) 2.22 H (0.82-1.09) Sodium 137 (135-145) mmol/L Potassium 4.6 (3.5-5.0) mmol/L Chloride 101 (101-111) mmol/L Carbon Dioxide 27 (22-32) mmol/L Anion Gap 9 (2-11) mmol/L BUN 28 H (6-24) mg/dL Creatinine 1.42 H (0.67-1.17) mg/dL Est GFR ( Amer) 58.2 (>60) Est GFR (Non-Af Amer) 48.1 (>60) BUN/Creatinine Ratio 19.7 (8-20) Glucose 101 H (70-100) mg/dL Lactic Acid (0.5-2.0) mmol/L Calcium 8.4 L (8.6-10.3) mg/dL Total Bilirubin 0.60 (0.2-1.0) mg/dL AST 15 (13-39) U/L ALT 21 (7-52) U/L Alkaline Phosphatase 68 (34-104) U/L Troponin I 0.02 (<0.04) ng/mL Total Protein 6.8 (6.4-8.9) g/dL Albumin 3.3 (3.2-5.2) g/dL Globulin 3.5 (2-4) g/dL Albumin/Globulin Ratio 0.9 L (1-3) 03/01/19 Range/Units 21:06 WBC (3.5-10.8) 10^3/uL RBC (4.18-5.48) 10^6 /uL Hgb (14.0-18.0) g/dL Hct (42-52) % MCV (80-94) fL MCH (27-31) pg MCHC (31-36) g/dL RDW (10-15) % Plt Count (150-450) 10^3/uL MPV (7.4-10.4) fL Neut % (Auto) % Lymph % (Auto) % [place] % (Auto) % Eos % (Auto) % Baso % (Auto) % Absolute Neuts (auto) (1.5-7.7) 10^3/ul Absolute Lymphs (auto) (1.0-4.8) 10^3/ul Absolute Monos (auto) (0-0.8) 10^3/ul Absolute Eos (auto) (0-0.6) 10^3/ul Absolute Basos (auto) (0-0.2) 10^3/ul Absolute Nucleated RBC 10^3/ul Nucleated RBC % INR (Anticoag Therapy) (0.82-1.09) Sodium (135-145) mmol/L Potassium (3.5-5.0) mmol/L Chloride (101-111) mmol/L Carbon Dioxide (22-32) mmol/L Anion Gap (2-11) mmol/L BUN (6-24) mg/dL Creatinine (0.67-1.17) mg/dL Est GFR ( Amer) (>60) Est GFR (Non-Af Amer) (>60) BUN/Creatinine Ratio (8-20) Glucose (70-100) mg/dL Lactic Acid 1.7 (0.5-2.0) mmol/L Calcium (8.6-10.3) mg/dL Total Bilirubin (0.2-1.0) mg/dL AST (13-39) U/L ALT (7-52) U/L Alkaline Phosphatase (34-104) U/L Troponin I (<0.04) ng/mL Total Protein (6.4-8.9) g/dL Albumin (3.2-5.2) g/dL Globulin (2-4) g/dL Albumin/Globulin Ratio (1-3) Microbiology and Other Data: Microbiology 03/01/19 21:06 Aerobic Blood Culture - Preliminary Blood Venous No Growth Day 1 Anaerobic Blood Culture - Preliminary No Growth Day 1 03/01/19 21:06 Aerobic Blood Culture - Preliminary Blood Venous No Growth Day 1 Anaerobic Blood Culture - Preliminary No Growth Day 1 Assess/Plan/Problems-Billing Assessment: 78 y/o male with history of asthma, mitral valve repair, recent admission for cellulitis and bacteremia with group B strep presented with acute onset of fever and chills found with leukocytosis - Patient Problems (1) Leukocytosis Comment: - Associated with rigors at home and fever 100.7 at home but not in the hospital - +cough x 2 days at home prior to presentation, no sick contacts or other URI symptoms but viral URI remains on diferential - Ucx returned this afternoon with pseudomonas. This provides a unifying reason for urinary symptoms, fever/inc WBC while on abx. Now on zosyn with pseudomonal coverage - Stopped vancomycin. I do not think his legs remain infected. If abx are needed on dc can continue clinda for legs and/or cipro for pseudomonas - left knee with effusion that does not look infected - no group B strep in blood (2) Cellulitis Comment: Doubt source of fever Stopped vanco as indicated above Has chronic wound on right leg that he would like to pursue wound care clinic for on discharge O discharge abx for urine can also cover potential soft tissue infection (3) Creatinine elevation Comment: - baseline creatnine 1.13, current creatinine 1.4 - discharge meds reviewed. Pt was to take lasix BID for 3 days then restart daily - discontinued lasix BID now and restart daily only - OF NOTE; I was unable to remove the BID dosing from his home med list so I added lasix daily and am noting here. (4) HTN (hypertension) Comment: holding nifedipine and atenolol (5) COPD (chronic obstructive pulmonary disease) Comment: on ICS/LABA, LAMA at home, no JERILYN noted wheezing today though no desat start Duoneb for symptom relief as well (6) Afib Comment: s/p maze procedure - cont warfarin with INR checks - holding atenolol - c/w amiodarone (7) DVT prophylaxis Comment: on warfarin Status and Disposition: Inpatient Medicine.
[2019-03-03] MEDS: Atorvastatin* 10 MG TAB PO SCH (17:38)
[2019-03-03] MEDS: Warfarin TAB(*) 4 MG PO SCH (17:38)
[2019-03-03] MEDS: Cyanocobalamin TAB* 500 MCG PO SCH (20:39)
[2019-03-03] MEDS: Zolpidem TAB* 5 MG PO PRN (20:39)
[2019-03-04 06:20] LABS: ABS Basophils 0.1 10^3/ul (0-0.2); ABS Eosinophils 0.1 10^3/ul (0-0.6); ABS Lymphocytes 0.8 10^3/ul (1.0-4.8); ABS Monocytes 0.7 10^3/ul (0-0.8); ABS Neutrophils 10.9 10^3/ul (1.5-7.7); Eosinophil % 1.1 %; Hematocrit 34 % (42-52); Lymphocyte % 6.2 %; Mean Corpuscular HGB Conc 33 g/dL (31-36); Mean Corpuscular Hemoglobin 31 pg (27-31); Mean Corpuscular Volume 96 fL (80-94); Mean Platelet Volume 7.1 fL (7.4-10.4); Nucleated Red Blood Cells % 0.1; Platelet Count 339 10^3/uL (150-450); Red Blood Count 3.55 10^6 /uL (4.18-5.48); Red Cell Distribution Width 18 % (10-15); White Blood Count 12.7 10^3/uL (3.5-10.8)
[2019-03-04 06:27] LABS: INR 1.77 (0.82-1.09)
[2019-03-04 06:40] LABS: BUN/Creatinine Ratio 18.6 (8-20); Calcium 8.2 mg/dL (8.6-10.3); EGFR Non-African American 53.7 (>60); Potassium 3.7 mmol/L (3.5-5.0)
--- NOTE | 2019-03-04 07:23 | PN ---
Subjective Date of Service: 03/04/19 Interval History: HD#3 78 y/o male with history of asthma, mitral valve repair, recent admission for cellulitis and bacteremia with group C strep presented with acute onset of fever and chills found with leukocytosis and UTI(pseudomonas). Day 4 of abx; switched to ciprofloxacin Blood culture negative till now. No acute overnight events Vitals stable; On CPAP No complaint at present Has some open draining wound on his right lower leg. Objective Active Medications: Albuterol/Ipratropium (Duoneb (Albuterol 2.5 Mg/Ipratropium 0.5 Mg)) 1 neb INH Q4H PRN PRN Reason: SHORTNESS OF BREATH Amiodarone HCl (Cordarone Tab*) 100 mg PO QAM [facility] Last Admin: 03/03/19 10:30 Dose: 100 mg Aspirin (Aspirin Ec Tab*) 81 mg PO QAM [facility] Last Admin: 03/03/19 10:30 Dose: 81 mg Atorvastatin Calcium (Lipitor*) 10 mg PO QPM [facility] Last Admin: 03/03/19 17:38 Dose: 10 mg Cyanocobalamin (Vitamin B12 Tab*) 1,000 mcg PO BEDTIME [facility] Last Admin: 03/03/19 20:39 Dose: 1,000 mcg Furosemide (Lasix Tab*) 40 mg PO BID [facility] Last Admin: 03/03/19 20:39 Dose: 40 mg Piperacillin Sod/Tazobactam (Sod 3.375 gm/ Sodium Chloride) 100 mls @ 25 mls/ hr IVPB Q8H [facility] Last Admin: 03/03/19 22:45 Dose: 25 mls/hr Mometasone Furoate/Formoterol Fumar (Dulera 200/5 Mdi*) 2 puff INH BID [facility]; Protocol Last Admin: 03/03/19 19:19 Dose: 2 puff Multivitamins/Minerals (Theragran/Minerals Tab*) 1 tab PO DAILY [facility] Last Admin: 03/03/19 10:30 Dose: 1 tab Pantoprazole Sodium (Protonix Tab*) 40 mg PO DAILY [facility] Last Admin: 03/03/19 10:30 Dose: 40 mg Pharmacy Consult (Vancomycin Per Pharmacy*) 1 note FOLLOW UP .VANC PER PHARMACY [facility]; Protocol Pharmacy Consult (Zosyn Per Pharmacy*) 1 note FOLLOW UP .ZOSYN PER PHARMACY [facility] Tiotropium [place] (Spiriva Respimat 2.5 Mcg) 2 puff INH QAM [facility] Last Admin: 03/03/19 07:10 Dose: 2 puff Warfarin Sodium (Coumadin Tab(*)) 4 mg PO 1700 [facility]; Protocol Last Admin: 03/03/19 17:38 Dose: 4 mg Zolpidem Tartrate (Ambien Tab*) 5 mg PO BEDTIME PRN PRN Reason: SLEEP Last Admin: 03/03/19 20:39 Dose: 5 mg Vital Signs - 8 hr 03/04/19 03/04/19 00:26 03:08 Temperature 98.2 F 97.7 F Pulse Rate 54 88 Respiratory 20 18 Rate Blood Pressure 111/51 110/60 (mmHg) O2 Sat by Pulse 94 91 Oximetry Oxygen Devices in Use Now: None Exam: Patient is sitting on a chair with no acute distress. HEENT: Normocephalic and atraumatic Lungs: Clear with no added sounds Heart: S1/S2 with no murmur Abdomen: Soft, nondistended and nontender. Normal bowel sound heard Extremities: DIscoloration of b/l lower extremity with open wound on anterior aspect of right leg draining serous discharge with some blood streaks. Neuro: Alert, orineted and conscious. MOving all four extremity. Result Diagrams: 03/04/19 06:10 03/04/19 06:10 Additional Lab and Data: Lab Results 03/01/19 03/01/19 03/01/19 Range/Units 21:06 21:06 21:06 WBC 21.2 H (3.5-10.8) 10^3/uL RBC 4.01 L (4.18-5.48) 10^6 /uL Hgb 12.7 L (14.0-18.0) g/dL Hct 39 L (42-52) % MCV 97 H (80-94) fL MCH 32 H (27-31) pg MCHC 33 (31-36) g/dL RDW 18 H (10-15) % Plt Count 396 (150-450) 10^3/uL MPV 7.4 (7.4-10.4) fL Neut % (Auto) 92.0 % Lymph % (Auto) 3.3 % [place] % (Auto) 3.9 % Eos % (Auto) 0.2 % Baso % (Auto) 0.6 % Absolute Neuts (auto) 19.5 H (1.5-7.7) 10^3/ul Absolute Lymphs (auto) 0.7 L (1.0-4.8) 10^3/ul Absolute Monos (auto) 0.8 (0-0.8) 10^3/ul Absolute Eos (auto) 0.0 (0-0.6) 10^3/ul Absolute Basos (auto) 0.1 (0-0.2) 10^3/ul Absolute Nucleated RBC 0.0 10^3/ul Nucleated RBC % 0.0 INR (Anticoag Therapy) 2.22 H (0.82-1.09) Sodium 137 (135-145) mmol/L Potassium 4.6 (3.5-5.0) mmol/L Chloride 101 (101-111) mmol/L Carbon Dioxide 27 (22-32) mmol/L Anion Gap 9 (2-11) mmol/L BUN 28 H (6-24) mg/dL Creatinine 1.42 H (0.67-1.17) mg/dL Est GFR ( Amer) 58.2 (>60) Est GFR (Non-Af Amer) 48.1 (>60) BUN/Creatinine Ratio 19.7 (8-20) Glucose 101 H (70-100) mg/dL Lactic Acid (0.5-2.0) mmol/L Calcium 8.4 L (8.6-10.3) mg/dL Total Bilirubin 0.60 (0.2-1.0) mg/dL AST 15 (13-39) U/L ALT 21 (7-52) U/L Alkaline Phosphatase 68 (34-104) U/L Troponin I 0.02 (<0.04) ng/mL Total Protein 6.8 (6.4-8.9) g/dL Albumin 3.3 (3.2-5.2) g/dL Globulin 3.5 (2-4) g/dL Albumin/Globulin Ratio 0.9 L (1-3) 03/01/19 Range/Units 21:06 WBC (3.5-10.8) 10^3/uL RBC (4.18-5.48) 10^6 /uL Hgb (14.0-18.0) g/dL Hct (42-52) % MCV (80-94) fL MCH (27-31) pg MCHC (31-36) g/dL RDW (10-15) % Plt Count (150-450) 10^3/uL MPV (7.4-10.4) fL Neut % (Auto) % Lymph % (Auto) % [place] % (Auto) % Eos % (Auto) % Baso % (Auto) % Absolute Neuts (auto) (1.5-7.7) 10^3/ul Absolute Lymphs (auto) (1.0-4.8) 10^3/ul Absolute Monos (auto) (0-0.8) 10^3/ul Absolute Eos (auto) (0-0.6) 10^3/ul Absolute Basos (auto) (0-0.2) 10^3/ul Absolute Nucleated RBC 10^3/ul Nucleated RBC % INR (Anticoag Therapy) (0.82-1.09) Sodium (135-145) mmol/L Potassium (3.5-5.0) mmol/L Chloride (101-111) mmol/L Carbon Dioxide (22-32) mmol/L Anion Gap (2-11) mmol/L BUN (6-24) mg/dL Creatinine (0.67-1.17) mg/dL Est GFR ( Amer) (>60) Est GFR (Non-Af Amer) (>60) BUN/Creatinine Ratio (8-20) Glucose (70-100) mg/dL Lactic Acid 1.7 (0.5-2.0) mmol/L Calcium (8.6-10.3) mg/dL Total Bilirubin (0.2-1.0) mg/dL AST (13-39) U/L ALT (7-52) U/L Alkaline Phosphatase (34-104) U/L Troponin I (<0.04) ng/mL Total Protein (6.4-8.9) g/dL Albumin (3.2-5.2) g/dL Globulin (2-4) g/dL Albumin/Globulin Ratio (1-3) Microbiology and Other Data: Microbiology 03/01/19 21:06 Aerobic Blood Culture - Preliminary Blood Venous No Growth Day 1 Anaerobic Blood Culture - Preliminary No Growth Day 1 03/01/19 21:06 Aerobic Blood Culture - Preliminary Blood Venous No Growth Day 1 Anaerobic Blood Culture - Preliminary No Growth Day 1 Assess/Plan/Problems-Billing Assessment: 78 y/o male with history of asthma, mitral valve repair, recent admission for cellulitis and bacteremia with group B strep presented with acute onset of fever and chills found with leukocytosis and UTI(pseudomonas); Switched to cipro (day 4) - Patient Problems (1) UTI (urinary tract infection) Current Visit: Yes Status: Acute Comment: Leucocytosis with increased frequency of urination. Normalizing WBC count On cipro(day 4) Asymptomatic (2) Urinary retention Current Visit: Yes Status: Acute Code(s): R33.9 - RETENTION OF URINE, UNSPECIFIED SNOMED Code(s): 670201167 Comment: post void urine 2 L NO hydronephrosis. Prostate slightly enlarged Monitor post void urine; straight cath if >400 (3) Creatinine elevation Current Visit: Yes Status: Acute Code(s): R79.89 - OTHER SPECIFIED ABNORMAL FINDINGS OF BLOOD CHEMISTRY SNOMED Code(s): 074419310 Comment: Improving; 1.29 today lasix frequency decreased to daily (4) Afib Current Visit: Yes Status: Acute Priority: High Code(s): I48.91 - UNSPECIFIED ATRIAL FIBRILLATION SNOMED Code(s): 62879374 Comment: s/p maze procedure - cont warfarin with INR checks - holding atenolol - c/w amiodarone (5) DVT prophylaxis Current Visit: Yes Status: Acute Priority: High Code(s): ZZC4395 - SNOMED Code(s): 224376756 Comment: on warfarin (6) Full code status Current Visit: No Status: Acute Priority: High Code(s): Z78.9 - OTHER SPECIFIED HEALTH STATUS SNOMED Code(s): 603483655 Status and Disposition: Inpatient Medicine. Attending: Jane Weaver Attestation Documenting Resident: Patsy Logan Supervising Physician: Jane Weaver Attending/Supervising Physician Comment: HD 4 on 03/04 78M COPD, mitral valve repair, Afib on AC, HTN, GERD, TERESO on CPAP recent admission for cellulitis and bacteremia with group B strep (endocarditis r/o) who was d/c home on [place], represented with fever, leukocytosis found to have pseudomonal UTI, elevated Cr. No overnight events, VSS Labs: INR 1.7, Leukoxcytosis down trending #UTI: Awiting micro to determine coverage Day 09/02 on 03/04 of abx coverage on Zosyn, renal ultrasound reveals sig PVR, will start straight caths, low threshold patel #Hx of recent cellulitis c/b bacteremia: Has completed full treatment for SSTI accompnaied by bacteremia #DEBBIE vs new baseline: [place], FU outpt #COPD: home meds #Afib: On AC and home amio #TERESO: Home machine #HTN: Holding home atenolol and niefidipien givne fever on admission #DVT PPX: Therapeutically AC, consider increase dose for low INR x1 #Code: Full Attestation: This service has been performed in part by a resident under the direction of a teaching physician.I, Jane Weaver, performed the service, or was physically present during the critical, or santizo portions of the service, furnished by the resident. I participated in the management of the patient.
[2019-03-04] MEDS: SPIRIVA Respimat* (tiotropium) 2.5 mcg/inh Inhaler INH SCH (07:59)
[2019-03-04] MEDS: Mometasone/Formoter 200/5 MDI INH SCH ×2 (07:59→20:26)
--- NOTE | 2019-03-04 08:06 | PN ---
Hospitalist Progress Note Date of Service: 03/04/19 HD 4 on 03/04 78M COPD, mitral valve repair, Afib on AC, HTN, GERD, TERESO on CPAP recent admission for cellulitis and bacteremia with group B strep (endocarditis r/o) who was d/c home on [place], represented with fever, leukocytosis found to have pseudomonal UTI, elevated Cr. No overnight events, VSS Labs: INR 1.7, Leukoxcytosis down trending #UTI: Awiting micro to determine coverage Day 09/02 on 03/04 of abx coverage on Zosyn #Hx of recent cellulitis c/b bacteremia: Has completed full treatment for SSTI accompnaied by bacteremia #DEBBIE vs new baseline: [place], FU outpt #COPD: home meds #Afib: On AC and home amio #TERESO: Home machine #HTN: Holding home atenolol and niefidipien givne fever on admission #DVT PPX: Therapeutically AC, consider increase dose for low INR x1 #Code: Full
[2019-03-04] MEDS: ZOSYN 3.375 GM Q8H per EXTENDED INFUSION IVPB SCH ×2 (08:35)
[2019-03-04] MEDS: Amiodarone TAB* 200 MG PO SCH (08:35)
[2019-03-04] MEDS: Multivitamins/Minerals TAB PO SCH (08:36)
[2019-03-04] MEDS: Pantoprazole TAB * 40 MG TAB PO SCH (08:36)
[2019-03-04] MEDS: Furosemide TAB* 40 MG PO SCH ×2 (08:37→22:11)
[2019-03-04] MEDS: Aspirin EC TAB* 81 MG TAB.EC PO SCH (08:37)
--- NOTE | 2019-03-04 13:43 | CONS ---
CONSULTATION REPORT: DATE OF CONSULT: 03/04/19 REQUESTING PHYSICIAN: Dr. Rangel. CONSULTING SERVICE: Infectious Disease. REASON FOR CONSULTATION: Fever. IMPRESSION: 1. Fever, difficulty urinating, incomplete emptying. No flank pain. Urinalysis showed blood, nitrites, and leukocyte esterase. Culture showing pseudomonas. I do believe he has a pseudomonas urinary tract infection. His blood cultures are negative. He had a recent cellulitis of the left leg, which appears resolved. 2. Morbid obesity. 3. Venous insufficiency with venous stasis changes. 4. Status post mitral valve repair. 5. Obstructive sleep apnea, treated with CPAP. RECOMMENDATIONS: Agree with stopping vancomycin. We will continue Zosyn and obtain a renal and bladder ultrasound to rule out stone disease or hydronephrosis. HISTORY OF PRESENT ILLNESS: This 78-year-old man with mitral valve repair, recent admission with streptococcal bacteremia and left leg cellulitis, had a course of clindamycin, has erythema in the leg that has resolved. He has followed with his residential insurance inspector in [place], had Karyn boots in the left lower extremity with significant improvement in swelling in his leg. On Monday, he developed fevers, shaking chills, came to the hospital. His white count was 21, 000. He was afebrile. Blood pressure in the low 100s. He had fluid hydration. Started on vancomycin and Zosyn. Blood cultures were taken and were negative. Urine cultures growing pseudomonas, sensitive to Cipro, Levaquin , Zosyn and cefepime. His white count is down to 12,000 today. He has had no fevers and he is little bit better; he was up walking with assistance. He had fallen at home and developed injury to the skin on the right leg. He does not have abdominal pain, cough, or diarrhea. PAST MEDICAL HISTORY: 1. Asthma. 2. Atrial fibrillation, on Coumadin. 3. Coronary artery disease, status post coronary artery bypass. 4. Status post mitral valve repair. 5. Status post maze procedure. 6. Hyperlipidemia. 7. Obstructive sleep apnea, treated with CPAP. 8. Hypertension. 9. Lower extremity venous stasis changes. 10. Insomnia. 11. Anemia. 12. Aortic ectasia. 13. History of cellulitis. 14. Status post vasectomy. ALLERGIES: No known drug allergies. MEDICATIONS: 1. Amiodarone 2. Aspirin. 3. Lipitor. 4. Cyanocobalamin. 5. Furosemide. 6. Pantoprazole. 7. Zosyn 3.375 g every 8 hours. 8. Spiriva. 9. Warfarin. 10. Zolpidem as needed. SOCIAL HISTORY: He lives with his on [address]. He is a past smoker. No injection drugs. FAMILY HISTORY: No recurrent infections. REVIEW OF SYSTEMS: All negative except as noted above to a 12-point review. PHYSICAL EXAMINATION: Vitals Signs: Temperature 36.7, heart rate 68, respiratory rate 20, blood pressure 112/71, oxygen saturation 91% on room air. In general, he is awake, not in distress. Neurologic: He is oriented x3. Follows all commands. Moves all extremities. HEENT: There is no conjunctival hemorrhage. Oropharynx without lesions. Neck: Supple without mass. Heart is regular rate and rhythm without murmurs, rubs, or gallops. Lungs are clear to auscultation bilaterally. Abdomen is soft , nontender, nondistended. There is no flank tenderness to palpation. There is no suprapubic tenderness to palpation. Skin: There are no rashes or splinter hemorrhages. Bilateral venostasis changes on the lower extremities. Musculoskeletal: There is no spine tenderness to palpation or joint synovitis. There is diffuse lower extremity nonpitting edema. DIAGNOSTIC STUDIES/LAB DATA: White blood cell count 12, hemoglobin 11, platelets 339, creatinine 1.2. Urinalysis showed blood, nitrites, leukocyte esterase. Please see impression and recommendations as outlined above. I discussed Dr. Rangel. Thanks for asking me to see Mr. Sams in consultation. [id number]/[facility] #: [id number] CHIVO
[2019-03-04] MEDS: Warfarin TAB(*) 4 MG PO SCH (17:16)
[2019-03-04] MEDS: Atorvastatin* 10 MG TAB PO SCH (17:17)
[2019-03-04] MEDS: Cyanocobalamin TAB* 500 MCG PO SCH (21:04)
[2019-03-04] MEDS: Ciprofloxacin TAB* 500 MG PO SCH (21:04)
[2019-03-04] MEDS: Zolpidem TAB* 5 MG PO PRN (22:15)
[2019-03-05] MEDS ORDERED: Vancomycin Trough Check NOTE FOLLOW UP ONE (05:30)
[2019-03-05 07:48] LABS: INR 1.82 (0.82-1.09)
[2019-03-05 07:53] LABS: ABS Eosinophils 0.1 10^3/ul (0-0.6); ABS Lymphocytes 0.8 10^3/ul (1.0-4.8); ABS Monocytes 0.6 10^3/ul (0-0.8); ABS Neutrophils 6.9 10^3/ul (1.5-7.7); Eosinophil % 1.4 %; Hematocrit 36 % (42-52); Hemoglobin 11.8 g/dL (14.0-18.0); Lymphocyte % 9.9 %; Mean Corpuscular HGB Conc 33 g/dL (31-36); Mean Corpuscular Hemoglobin 32 pg (27-31); Mean Corpuscular Volume 96 fL (80-94); Mean Platelet Volume 7.5 fL (7.4-10.4); Nucleated Red Blood Cells % 0.1; Platelet Count 337 10^3/uL (150-450); Red Blood Count 3.71 10^6 /uL (4.18-5.48); Red Cell Distribution Width 18 % (10-15); White Blood Count 8.5 10^3/uL (3.5-10.8)
[2019-03-05 08:06] LABS: Calcium 8.4 mg/dL (8.6-10.3); EGFR African American 77.3 (>60); EGFR Non-African American 63.9 (>60); Potassium 3.6 mmol/L (3.5-5.0)
--- NOTE | 2019-03-05 08:06 | PN ---
Subjective Date of Service: 03/05/19 Interval History: HD 5 on 03/05 78M COPD, mitral valve repair, Afib on AC, HTN, GERD, TERESO on CPAP recent admission for cellulitis and bacteremia with group C strep (endocarditis r/o) who was d/c home on [place], represented with fever, leukocytosis found to have pseudomonal UTI, elevated Cr and urine retention No acute overnight events Vitals stable No complaint at present Has one blister on left forearm. feels like going home Objective Active Medications: Albuterol/Ipratropium (Duoneb (Albuterol 2.5 Mg/Ipratropium 0.5 Mg)) 1 neb INH Q4H PRN PRN Reason: SHORTNESS OF BREATH Amiodarone HCl (Cordarone Tab*) 100 mg PO QAM [facility] Last Admin: 03/04/19 08:35 Dose: 100 mg Aspirin (Aspirin Ec Tab*) 81 mg PO QAM [facility] Last Admin: 03/04/19 08:37 Dose: 81 mg Atorvastatin Calcium (Lipitor*) 10 mg PO QPM [facility] Last Admin: 03/04/19 17:17 Dose: 10 mg Ciprofloxacin (Cipro Tab*) 500 mg PO Q12HR [facility]; Protocol Last Admin: 03/04/19 21:04 Dose: 500 mg Cyanocobalamin (Vitamin B12 Tab*) 1,000 mcg PO BEDTIME [facility] Last Admin: 03/04/19 21:04 Dose: 1,000 mcg Furosemide (Lasix Tab*) 40 mg PO BID [facility] Last Admin: 03/04/19 22:11 Dose: Not Given Mometasone Furoate/Formoterol Fumar (Dulera 200/5 Mdi*) 2 puff INH BID [facility]; Protocol Last Admin: 03/04/19 20:26 Dose: 2 puff Multivitamins/Minerals (Theragran/Minerals Tab*) 1 tab PO DAILY [facility] Last Admin: 03/04/19 08:36 Dose: 1 tab Pantoprazole Sodium (Protonix Tab*) 40 mg PO DAILY [facility] Last Admin: 03/04/19 08:36 Dose: 40 mg Tiotropium [place] (Spiriva Respimat 2.5 Mcg) 2 puff INH QAM [facility] Last Admin: 03/04/19 07:59 Dose: 2 puff Warfarin Sodium (Coumadin Tab(*)) 4 mg PO 1700 [facility]; Protocol Last Admin: 03/04/19 17:16 Dose: 4 mg Zolpidem Tartrate (Ambien Tab*) 5 mg PO BEDTIME PRN PRN Reason: SLEEP Last Admin: 03/04/19 22:15 Dose: 5 mg Vital Signs - 8 hr 03/05/19 03/05/19 03:25 07:45 Temperature 98.2 F Pulse Rate 91 Respiratory 16 18 Rate Blood Pressure 104/65 (mmHg) O2 Sat by Pulse 93 Oximetry Oxygen Devices in Use Now: None Exam: Patient is sitting on a chair with no acute distress. HEENT: Normocephalic and atraumatic Lungs: Clear with no added sounds Heart: S1/S2 with no murmur Abdomen: Soft, nondistended and nontender. Normal bowel sound heard Extremities: DIscoloration of b/l lower extremity with open wound on anterior aspect of right leg draining serous discharge with some blood streaks. Around 2 cm blister in left forearm Neuro: Alert, oriented and conscious. MOving all four extremity. Result Diagrams: 03/05/19 06:59 03/05/19 06:59 Additional Lab and Data: Lab Results 03/01/19 03/01/19 03/01/19 Range/Units 21:06 21:06 21:06 WBC 21.2 H (3.5-10.8) 10^3/uL RBC 4.01 L (4.18-5.48) 10^6 /uL Hgb 12.7 L (14.0-18.0) g/dL Hct 39 L (42-52) % MCV 97 H (80-94) fL MCH 32 H (27-31) pg MCHC 33 (31-36) g/dL RDW 18 H (10-15) % Plt Count 396 (150-450) 10^3/uL MPV 7.4 (7.4-10.4) fL Neut % (Auto) 92.0 % Lymph % (Auto) 3.3 % [place] % (Auto) 3.9 % Eos % (Auto) 0.2 % Baso % (Auto) 0.6 % Absolute Neuts (auto) 19.5 H (1.5-7.7) 10^3/ul Absolute Lymphs (auto) 0.7 L (1.0-4.8) 10^3/ul Absolute Monos (auto) 0.8 (0-0.8) 10^3/ul Absolute Eos (auto) 0.0 (0-0.6) 10^3/ul Absolute Basos (auto) 0.1 (0-0.2) 10^3/ul Absolute Nucleated RBC 0.0 10^3/ul Nucleated RBC % 0.0 INR (Anticoag Therapy) 2.22 H (0.82-1.09) Sodium 137 (135-145) mmol/L Potassium 4.6 (3.5-5.0) mmol/L Chloride 101 (101-111) mmol/L Carbon Dioxide 27 (22-32) mmol/L Anion Gap 9 (2-11) mmol/L BUN 28 H (6-24) mg/dL Creatinine 1.42 H (0.67-1.17) mg/dL Est GFR ( Amer) 58.2 (>60) Est GFR (Non-Af Amer) 48.1 (>60) BUN/Creatinine Ratio 19.7 (8-20) Glucose 101 H (70-100) mg/dL Lactic Acid (0.5-2.0) mmol/L Calcium 8.4 L (8.6-10.3) mg/dL Total Bilirubin 0.60 (0.2-1.0) mg/dL AST 15 (13-39) U/L ALT 21 (7-52) U/L Alkaline Phosphatase 68 (34-104) U/L Troponin I 0.02 (<0.04) ng/mL Total Protein 6.8 (6.4-8.9) g/dL Albumin 3.3 (3.2-5.2) g/dL Globulin 3.5 (2-4) g/dL Albumin/Globulin Ratio 0.9 L (1-3) 03/01/19 Range/Units 21:06 WBC (3.5-10.8) 10^3/uL RBC (4.18-5.48) 10^6 /uL Hgb (14.0-18.0) g/dL Hct (42-52) % MCV (80-94) fL MCH (27-31) pg MCHC (31-36) g/dL RDW (10-15) % Plt Count (150-450) 10^3/uL MPV (7.4-10.4) fL Neut % (Auto) % Lymph % (Auto) % Evans % (Auto) % Eos % (Auto) % Baso % (Auto) % Absolute Neuts (auto) (1.5-7.7) 10^3/ul Absolute Lymphs (auto) (1.0-4.8) 10^3/ul Absolute Monos (auto) (0-0.8) 10^3/ul Absolute Eos (auto) (0-0.6) 10^3/ul Absolute Basos (auto) (0-0.2) 10^3/ul Absolute Nucleated RBC 10^3/ul Nucleated RBC % INR (Anticoag Therapy) (0.82-1.09) Sodium (135-145) mmol/L Potassium (3.5-5.0) mmol/L Chloride (101-111) mmol/L Carbon Dioxide (22-32) mmol/L Anion Gap (2-11) mmol/L BUN (6-24) mg/dL Creatinine (0.67-1.17) mg/dL Est GFR ( Amer) (>60) Est GFR (Non-Af Amer) (>60) BUN/Creatinine Ratio (8-20) Glucose (70-100) mg/dL Lactic Acid 1.7 (0.5-2.0) mmol/L Calcium (8.6-10.3) mg/dL Total Bilirubin (0.2-1.0) mg/dL AST (13-39) U/L ALT (7-52) U/L Alkaline Phosphatase (34-104) U/L Troponin I (<0.04) ng/mL Total Protein (6.4-8.9) g/dL Albumin (3.2-5.2) g/dL Globulin (2-4) g/dL Albumin/Globulin Ratio (1-3) Microbiology and Other Data: Microbiology 03/01/19 21:06 Aerobic Blood Culture - Preliminary Blood Venous No Growth Day 1 Anaerobic Blood Culture - Preliminary No Growth Day 1 03/01/19 21:06 Aerobic Blood Culture - Preliminary Blood Venous No Growth Day 1 Anaerobic Blood Culture - Preliminary No Growth Day 1 Assess/Plan/Problems-Billing Assessment: 78 y/o male with history of asthma, mitral valve repair, recent admission for cellulitis and bacteremia with group C strep presented with acute onset of fever and chills found with leukocytosis and UTI(pseudomonas); Switched to cipro (day 4) - Patient Problems (1) UTI (urinary tract infection) Current Visit: Yes Status: Acute Comment: Normalizing WBC count On ciprofloxacin(day 5) Asymptomatic (2) Urinary retention Current Visit: Yes Status: Acute Code(s): R33.9 - RETENTION OF URINE, UNSPECIFIED SNOMED Code(s): 754733434 Comment: No retention on post void scan (3) Creatinine elevation Current Visit: Yes Status: Acute Code(s): R79.89 - OTHER SPECIFIED ABNORMAL FINDINGS OF BLOOD CHEMISTRY SNOMED Code(s): 645603830 Comment: Improved (4) Afib Current Visit: Yes Status: Acute Priority: High Code(s): I48.91 - UNSPECIFIED ATRIAL FIBRILLATION SNOMED Code(s): 66623599 Comment: s/p maze procedure - cont warfarin with INR checks - holding atenolol - c/w amiodarone (5) DVT prophylaxis Current Visit: Yes Status: Acute Priority: High Code(s): IJX1840 - SNOMED Code(s): 244780656 Comment: on warfarin (6) Full code status Current Visit: No Status: Acute Priority: High Code(s): Z78.9 - OTHER SPECIFIED HEALTH STATUS SNOMED Code(s): 970595519 Status and Disposition: Inpatient Medicine. dc today Attending: Jane Weaver Attestation Documenting Resident: Patsy Logan Supervising Physician: Jane Weaver Attending/Supervising Physician Comment: HD 5 on 03/05 78M COPD, mitral valve repair, Afib on AC, HTN, GERD, TERESO on CPAP recent admission for cellulitis and bacteremia with group B strep (endocarditis r/o) who was d/c home on [place], represented with fever, leukocytosis found to have pseudomonal UTI, elevated Cr. No overnight events, VSS #UTI:Home with 7 days of tx for male UTI per IDSA guidelines #Hx of recent cellulitis c/b bacteremia: Has completed full treatment for SSTI accompnaied by bacteremia #DEBBIE vs new baseline: [place], FU outpt #COPD: home meds #Afib: On AC and home amio #TERESO: Home machine #HTN: Sander to resume home meds #DVT PPX: subtheraptuic, rec outpt mgmt #Code: Full Attestation: This service has been performed in part by a resident under the direction of a teaching physician.I, Jane Weaver, performed the service, or was physically present during the critical, or santizo portions of the service, furnished by the resident. I participated in the management of the patient.
[2019-03-05] MEDS: Pantoprazole TAB * 40 MG TAB PO SCH (08:33)
[2019-03-05] MEDS: Multivitamins/Minerals TAB PO SCH (08:33)
[2019-03-05] MEDS: Ciprofloxacin TAB* 500 MG PO SCH (08:33)
[2019-03-05] MEDS: Aspirin EC TAB* 81 MG TAB.EC PO SCH (08:33)
[2019-03-05] MEDS: Furosemide TAB* 40 MG PO SCH (08:33)
[2019-03-05] MEDS: Amiodarone TAB* 200 MG PO SCH (08:33)
[2019-03-05] MEDS: Mometasone/Formoter 200/5 MDI INH SCH (08:36)
[2019-03-05] MEDS: SPIRIVA Respimat* (tiotropium) 2.5 mcg/inh Inhaler INH SCH (08:37)
[2019-03-05] MEDS ORDERED: Potassium Chlor TAB* 20 MEQ TAB.ER PO ONE (08:50)
--- NOTE | 2019-03-05 15:51 | CONSULT ---
Subjective Date of Service: 03/05/19 Interval History: Mr. Sams is a 78 yo male with PMH significant for asthma, a fib, CAD, MV repair, HLD, TERESO, HTN, chronic bilateral LE venous stasis with ulcers, insomnia , chronic anemia, aortic ectasia, and recent LE cellulitis (last hospitalized from 02/14-02/18); who presented to the emergency room with complaints of fever and chills. He was admitted for sepsis secondary to cellulitis vs UTI. He was found to have a pseudomonas UTI. He presented to the hospital with known bilateral LE venous stasis ulcers. He has followed with [facility] for this and typically has [place] boots. He developed a blister like area to the left forearm during his stay. Patient seen and examined at bedside. Family History: Unchanged from Admission Social History: Unchanged from Admission Past Medical History: Unchanged from Admission Review of Systems - Measurements Intake and Output: Intake and Output Last 24 Hours 03/03/19 03/04/19 03/05/19 03/06/19 06:59 06:59 06:59 06:59 Intake Total 2382 2413 760 950 Output Total 0 0 Balance 2382 2413 760 950 Intake: IV Fluids 72 73 0 ABX - VANCOMYCIN 31 43 0 ABX - ZOSYN 41 30 IVPB 800 710 100 ABX - VANCOMYCIN 500 610 ABX - ZOSYN 300 100 100 Oral 1510 1630 660 950 Output: Urine 0 0 Other: Estimated Void Large Large Date of Last Bowel 03/02/19 Movement Estimated Stool Amount Small Small # Voids 2 1 - Review of Systems Constitutional Symptoms: Negative: Fever, Other - Chills Dermatology: Positive: Other - Skin issue left forearm and bilateral LEs Endocrinology: Positive: Obesity Objective Active Medications: Albuterol/Ipratropium (Duoneb (Albuterol 2.5 Mg/Ipratropium 0.5 Mg)) 1 neb INH Q4H PRN Reason: SHORTNESS OF BREATH Amiodarone HCl (Cordarone Tab*) 100 mg PO QAM RISA Aspirin (Aspirin Ec Tab*) 81 mg PO QAM RISA Atorvastatin Calcium (Lipitor*) 10 mg PO QPM RISA Ciprofloxacin (Cipro Tab*) 500 mg PO Q12HR RISA; Protocol Cyanocobalamin (Vitamin B12 Tab*) 1,000 mcg PO BEDTIME RISA Furosemide (Lasix Tab*) 40 mg PO BID RISA Mometasone Furoate/Formoterol Fumar (Dulera 200/5 Mdi*) 2 puff INH BID RISA; Protocol Multivitamins/Minerals (Theragran/Minerals Tab*) 1 tab PO DAILY RISA Pantoprazole Sodium (Protonix Tab*) 40 mg PO DAILY RISA Tiotropium [place] (Spiriva Respimat 2.5 Mcg) 2 puff INH QAM RISA Warfarin Sodium (Coumadin Tab(*)) 4 mg PO 1700 RISA; Protocol Zolpidem Tartrate (Ambien Tab*) 5 mg PO BEDTIME PRN Reason: SLEEP Vital Signs - 8 hr 03/05/19 03/05/19 03/05/19 08:26 08:39 12:00 Temperature 98.3 F 97.0 F Pulse Rate 91 79 72 Respiratory 16 17 16 Rate Blood Pressure 118/68 111/54 (mmHg) O2 Sat by Pulse 93 92 95 Oximetry Oxygen Devices in Use Now: None Appearance: NAD, sitting up in a chair Ears/Nose/Mouth/Throat: Mucous Membranes Moist Respiratory: Symmetrical Chest Expansion and Respiratory Effort Extremities: - - Bilateral LE lymphedema, bilateral 2+ DP pulses Skin: - - See skin note below Neurological: Alert and Oriented x 3 Result Diagrams: 03/05/19 06:59 03/05/19 06:59 Skin Deviation Note - Skin Deviation Findings Left medial lower leg - Chronic skin changes with dry lymph drainage. Left medial thigh - There is a large scabbed area, measurs 8.5 cm x 7 cm. The surrounding skin intact with erythema and dry. There is no drainage. Right anterior/medial lower leg - The leg has chronic skin changes. There are 4 wounds. The proximal wound towards the anterior leg, measures 2.9 cm x 3.4 cm x 0.1 cm. The distal wound towards the anterior leg, measures 4 cm x 4.3 cm x 0.1 cm. The distal wound that is more medial, measures 5.2 cm x 3.8 cm x 0.1 cm. The small proximal wound that is more medial, measures 1.7 cm x 1.2 cm. The wound bases are 100% yellow slough. The surrounding skin is intact. There is serous drainage. Left forearm - There is a blister like area with fluctuance, measures 3.8 cm x 3.7 cm. The surrounding skin with slight erythema. No drainage. Wound Problem/Plan Assessment: Mr. Sams is a 78 yo male with PMH significant for asthma, a fib, CAD, MV repair, HLD, TERESO, HTN, chronic bilateral LE venous stasis with ulcers, insomnia , chronic anemia, aortic ectasia, and recent LE cellulitis (last hospitalized from 02/14-02/18); who presented to the emergency room with complaints of fever and chills. He was admitted for sepsis secondary to cellulitis vs UTI. He was found to have a pseudomonas UTI. He presented to the hospital with known bilateral LE venous stasis ulcers. He developed a blister like area to the left forearm during his stay. 1. Left upper thigh wound, unclear cause. Recommend applying ABX ointment to the area, telfa, and rolled gauze, change daily. Keep legs elevated as able. Refer to the wound clinic outpatient. 2. Right lower leg, venous stasis ulcers with lymphedema. Recommend washing the legs with soap and water, apply Santyl to the open areas, followed by calcium alginate, and rolled gauze, change daily. Refer to the wound clinic outpatient. Consider ABIs to evaluate vascular status. 3. Left forearm lesion, unclear cause suspect secondary to IV. Recommend applying ABX ointment and non stick dressing, change daily. 4. Left lower leg, venous stasis with lymphedema. Recommend washing with soap and water and apply lotion daily. Keep the leg elevated as able. Consider ABIs to evaluate vascular status. 5. Diet. Heart Healthy diet. 6. Code Status. Full Code status. 7. Disposition. Inpatient, disposition per primary medicine team. Is Patient a Wound Clinic Patient: No Counseling and/or Coordination of Care Minutes: 40 Points of Discussion: TIME SPENT: Time for this wound consultation was 40 minutes and 30 minutes was spent with the patient and discussing medical history; assessing, measuring , and photographing the wounds; discussing wound care recommendations and followup with the wound clinic. Attending: Yasmeen Lopez
[2019-03-05 15:54] VITALS: BP 136/70
[2019-03-05] MEDS ORDERED: Collagenase 250 UNITS/GM OINT* 1 APPLIC OINT TOPICAL SCH (16:30)
[2019-03-05] MEDS: Atorvastatin* 10 MG TAB PO SCH (17:35)
[2019-03-05] MEDS: Warfarin TAB(*) 4 MG PO SCH (17:35)
--- NOTE | 2019-03-05 22:58 | DS ---
CC: Dr. Taylor Ellington * DISCHARGE SUMMARY: DATE OF ADMISSION: 03/01/19 DATE OF DISCHARGE: 03/05/19 PRIMARY CARE PROVIDER: Dr. Taylor Ellington DISPOSITION AT THE TIME OF DISCHARGE: Stable to discharge to home with home VNS and PT. PRIMARY DIAGNOSIS: Urinary tract infection. SECONDARY DIAGNOSES: 1. Chronic obstructive pulmonary disease. 2. Atrial fibrillation, on anticoagulation. 3. Hypertension. 4. Gastroesophageal reflux disease. 5. Obstructive sleep apnea, on CPAP. 6. Recent admission for cellulitis and bacteremia with group B strep and on last hospitalization, endocarditis was ruled out. 7. History of mitral valve repair. MEDICATIONS AT THE TIME OF DISCHARGE: 1. Ciprofloxacin 500 mg p.o. b.i.d. for an additional 3 days status post discharge. 2. Nifedipine 60 mg p.o. q.a.m. 3. Levocetirizine 5 mg p.o. daily. 4. Furosemide 40 mg p.o. daily. 5. Atenolol 100 mg p.o. q.a.m. 6. Zolpidem 5 mg p.o. q.h.s. 7. Warfarin 4 mg p.o. q.h.s. 8. Spiriva 2 puffs inhale q.a.m. 9. Simvastatin 20 mg p.o. q.p.m. 10. Tiotropium 2 puffs inhale q.a.m. 11. Pantoprazole 40 mg p.o. daily. 12. Multivitamin 1 tab p.o. daily. 13. Vitamin B12 1000 mcg p.o. q.h.s. 14. Dulera 2 puffs inhale b.i.d. 15. Aspirin 81 mg p.o. q.a.m. 16. Amiodarone 100 mg p.o. q.a.m. Medication changes on this hospitalization were the addition of ciprofloxacin for initial 3 days status post discharge as well as furosemide titrating from b.i.d. to daily. HISTORY OF PRESENT ILLNESS AND HOSPITAL COURSE: A 78-year-old male with the above past medical history and notably recently admitted for cellulitis of bilateral lower extremities, complicated by group B Streptococcus bacteremia, who was discharged home on 02/18/19 who was readmitted on 03/01/19 with fever and chills. He had been on outpatient clindamycin from 02/18/19 until when he re -presented. He had no localizing signs and symptoms and infectious cellulitis actually looked better. In the emergency room, UA was done, which showed a concern for infection and he was admitted with hospital course following the problem: 1. Sepsis. Initially was admitted and thought to be secondary to cellulitis versus urinary tract infection. His urine culture ultimately grew pseudomonas, which clindamycin does not cover and he was switched to ciprofloxacin and in fact all antibiotics were stopped for his cellulitis and the patient improved rapidly with coverage. His sepsis resolved within the first 24 hours. 2. Pseudomonas UTI sensitive to ciprofloxacin. He should get a total of 7 days. He received 4 in the hospital and we discharged with 3 additional days. He has no symptoms of burning. He does show some evidence of urinary retention although with subsequent postvoid residuals. He was able to void completely. He does have evidence of BPH and if he has further symptoms, consider treating this as an outpatient. 3. History of heart failure with preserved ejection fraction. He is on Lasix. This was restarted just daily instead of b.i.d. and could be uptitrated by primary care. The rest of his BP medications were held initially, but then gradually restarted to prevent hypertensive episodes. He can be discharged on his home medications. 4. Hypertension. His home medications were held initially, but then gradually restarted. 5. Obstructive sleep apnea. He is on nightly BiPAP. 6. History of atrial fibrillation. He is on Coumadin 6 mg nightly. He had mildly subtherapeutic INR on the day of discharge at 1.8. This can be followed with his primary care as he is on ciprofloxacin, which is a CYP, generally INR increasing medication, this can be followed within a week. 7. History of GERD. He is on PPI. 8. The patient was admitted with some mild DEBBIE. It was downtrending. It can be followed up as an outpatient. 9. DVT prophylaxis. He was therapeutically anticoagulative with exception of 1 day of subtherapeutic on day of discharge of 1.8. 10. His code status is full. LABS AND STUDIES DONE DURING THIS HOSPITALIZATION: Labs on day of discharge: White blood cell count returned to normal at 8.5, hemoglobin is 11.8, hematocrit is 36, platelets 337. BMP on 03/05/19, sodium 136, potassium 3.6, chloride 102, carbon dioxide 26, anion gap 8, BUN 20, creatinine 1.1. Micro included urine culture, which showed pseudomonas pansensitive. Blood cultures from 03/01/19 were negative. Imaging included abdomen and bladder ultrasound, which showed no hydronephrosis , nephrolithiasis or pyelonephritis, although it did show large postvoid residuals. CONSULTS DURING THIS HOSPITALIZATION: Included Infectious Disease, who recommended treatment of UTI. He does have wounds, he can continue to follow with Derm for these wounds. I felt there is no evidence of active cellulitis on the day of discharge. He is tolerating diet, voiding freely. He did work with physical therapy. He felt he was safe to go home with services. ITEMS TO FOLLOW UP ON STATUS POST DISCHARGE: 1. Subtherapeutic INR. Please recheck Coumadin levels per outpatient provider' s discretion. 2. UTI. The patient had pseudomonas UTI. This is possibly from underlying BPH and urinary retention. Consider treating urinary retention or follow up with Urology as indicated. Complete course of ciprofloxacin. 3. Chronic wounds with lower extremity chronic venous stasis complicated by recent cellulitis. He is following with Dermatology and has unna boot placement. Continue following with Derm at this time. There is no clear indication for wound follow up as they seem well healed although there will be slow healing process, which is counseled to the patient and the family. TIME SPENT: Forty five minutes was spent planning on this discharge with over half of that spent directly at the bedside of the patient providing direct patient care. If there are any questions about the care of this patient during this hospitalization, please do not hesitate to reach out and contact the hospitalist team directly. [id number]/[facility] #: [id number] CHIVO
[2019-03-06] MEDS ORDERED: Furosemide TAB* 40 MG PO SCH (09:00)
== END 2019-03-05 18:30 | disposition home or self-care (01) | DRG 872 ==
LOC: ED 19:18 → MEDTELE 03-02 02:01
PROVIDERS: ADMIT Internal Medicine; ATTEND Internal Medicine
DX: A41.52 Sepsis due to Pseudomonas (principal); N39.0 Urinary tract infection, site not specified; Z68.41 Body mass index [BMI] 40.0-44.9, adult; N17.9 Acute kidney failure, unspecified; I25.10 Atherosclerotic heart disease of native coronary artery without angina pectoris; E78.00 Pure hypercholesterolemia, unspecified; I11.0 Hypertensive heart disease with heart failure; J44.9 Chronic obstructive pulmonary disease, unspecified; K21.9 Gastro-esophageal reflux disease without esophagitis; H91.90 Unspecified hearing loss, unspecified ear; K46.9 Unspecified abdominal hernia without obstruction or gangrene; I48.91 Unspecified atrial fibrillation; E78.5 Hyperlipidemia, unspecified; G47.33 Obstructive sleep apnea (adult) (pediatric); I87.8 Other specified disorders of veins; I77.819 Aortic ectasia, unspecified site; D64.9 Anemia, unspecified; I50.9 Heart failure, unspecified; E66.01 Morbid (severe) obesity due to excess calories; I87.2 Venous insufficiency (chronic) (peripheral); S80.921A Unspecified superficial injury of right lower leg, initial encounter; N40.1 Benign prostatic hyperplasia with lower urinary tract symptoms; R33.8 Other retention of urine; R79.1 Abnormal coagulation profile; Z95.1 Presence of aortocoronary bypass graft; Z97.4 Presence of external hearing-aid; Z86.14 Personal history of Methicillin resistant Staphylococcus aureus infection; Z72.89 Other problems related to lifestyle; Z87.891 Personal history of nicotine dependence; Z98.52 Vasectomy status; Z79.82 Long term (current) use of aspirin
CPT/HCPCS: 36415; 76770; 80048; 80053; 80202; 81003; 81015; 83605; 84484; 85025; 85610; 87040; 87077; 87086; 87186; 94640; 94660; 99285; A9270-GY; G8978-GP-CJ; G8979-GP-CJ; G8980-GP-CJ; G8987-GO-CJ; G8988-GO-CI; J2543; J3370; J3535

== ENCOUNTER 2021-05-24 21:38 | Observation (INO) ==
[2021-05-24] MEDS ORDERED: NS 0.9% 1000 ml BAG 1,000 ML IV ONE (23:16)
[2021-05-25 00:16] LABS: Hematocrit 48 % (42-52); Hemoglobin 16.2 g/dL (14.0-18.0); Mean Corpuscular HGB Conc 34 g/dL (31-36); Mean Corpuscular Hemoglobin 33 pg (27-31); Mean Corpuscular Volume 98 fL (80-94); Mean Platelet Volume 7.5 fL (7.4-10.4); Platelet Count 320 10^3/uL (150-450); Red Blood Count 4.92 10^6 /uL (4.18-5.48); Red Cell Distribution Width 17 % (10-15); White Blood Count 26.2 10^3/uL (3.5-10.8)
[2021-05-25 00:30] LABS: ALT 20 U/L (7-52); AST 12 U/L (13-39); Albumin 3.7 g/dL (3.2-5.2); Albumin/Globulin Ratio 1.1 (1-3); Alkaline Phosphatase 59 U/L (35-149); Anion Gap 6 mmol/L (2-11); Blood Urea Nitrogen 30 mg/dL (6-24); C Reactive Protein 67.72 mg/L (<8.01); CO2 Carbon Dioxide 32 mmol/L (22-32); Calcium 9.2 mg/dL (8.6-10.3); Chloride 102 mmol/L (101-111); Creatine Kinase 64 U/L (10-223); Globulin 3.4 g/dL (2-4); Glucose 110 mg/dL (70-100); Magnesium 2.3 mg/dL (1.9-2.7); Potassium 4.1 mmol/L (3.5-5.0); Sodium 140 mmol/L (135-145); Total Protein 7.1 g/dL (6.4-8.9); eGFR CKD-EPI 68.9 (>60)
[2021-05-25 00:32] LABS: Troponin I 0.02 ng/mL (<0.03)
[2021-05-25 00:35] LABS: Urine Appearance Cloudy; Urine Bilirubin Negative (Negative); Urine Blood Negative (Negative); Urine Color Yellow; Urine Glucose Negative (Negative); Urine Ketones Negative (Negative); Urine Nitrite Negative (Negative); Urine Protein 1+(30 mg/dL) (Negative); Urine Specific Gravity 1.023 (1.002-1.030); Urine Urobilinogen Negative (Negative)
[2021-05-25 00:43] LABS: Urine Bacteria Absent (Absent); Urine Red Blood Cell Trace(0-2/hpf) (Absent); Urine Squamous Epithelial Cell Present (Absent); Urine White Blood Cell 1+(6-10/hpf) (Absent)
[2021-05-25 00:43] LABS: Alcohol, S < 13 mg/dL (<13)
[2021-05-25 00:49] LABS: Urine Benzodiazepine Screen None Detected (None Detect); Urine Cannabinoids Screen None Detected (None Detect); Urine Opiates Screen None Detected (None Detect)
[2021-05-25 00:58] LABS: TSH Ultra Thyroid Stim Horm 2.25 mcIU/mL (0.34-5.60)
[2021-05-25] MEDS ORDERED: Piperacillin/Tazobac ADVAN 3.375 GM in NS 0.9% 100 ml BAG 100 ML IV ONE (01:51)
[2021-05-25 02:27] LABS: ABS Basophils 0.1 10^3/ul (0-0.2); ABS Lymphocytes 0.5 10^3/ul (1.0-4.8); ABS Monocytes 1.2 10^3/ul (0-0.8); ABS Neutrophils 24.3 10^3/ul (1.5-7.7)
[2021-05-25 04:06] LABS: LDH 257 U/L (140-271)
[2021-05-25] MEDS ORDERED: Albuterol/Ipratropium NEB.SOL (2.5/0.5 MG) 3 ML NEB.SOLN INH PRN (05:12)
[2021-05-25 05:43] LABS: Hematocrit 44 % (42-52); Hemoglobin 14.7 g/dL (14.0-18.0); Mean Corpuscular HGB Conc 33 g/dL (31-36); Mean Corpuscular Hemoglobin 33 pg (27-31); Mean Corpuscular Volume 99 fL (80-94); Mean Platelet Volume 6.9 fL (7.4-10.4); Platelet Count 277 10^3/uL (150-450); Red Blood Count 4.46 10^6 /uL (4.18-5.48); Red Cell Distribution Width 17 % (10-15)
[2021-05-25 05:47] LABS: ABS Basophils 0.1 10^3/ul (0-0.2); ABS Lymphocytes 0.6 10^3/ul (1.0-4.8); ABS Monocytes 0.8 10^3/ul (0-0.8); ABS Neutrophils 20.5 10^3/ul (1.5-7.7); Eosinophil % 0.1 %; Lymphocyte % 2.9 %
[2021-05-25 05:49] LABS: INR 3.1 (0.86-1.15)
[2021-05-25 05:58] LABS: Calcium 8.4 mg/dL (8.6-10.3); Potassium 4.1 mmol/L (3.5-5.0); eGFR CKD-EPI 66.7 (>60)
[2021-05-25] MEDS ORDERED: cefTRIAXone 1 gm/50 mL NS BAG 1 GM/50 ML BAG IVPB SCH (09:00)
[2021-05-25] MEDS ORDERED: Warfarin per PHARMACY **NOTE FOLLOW UP SCH (10:00)
[2021-05-25] MEDS: Aspirin EC 81 mg TAB.EC (enteric coated) PO SCH (10:14)
[2021-05-25] MEDS ORDERED: Perflutren Lipid Microsphere 3 ML VIAL ONE (11:40)
[2021-05-25] MEDS ORDERED: Vancomycin 1,000 MG in NS 0.9% 250 ml 250 ML IVPB ONE (16:54)
[2021-05-25] MEDS ORDERED: Warfarin - No Order Today **NOTE FOLLOW UP ONE (17:00)
[2021-05-25] MEDS ORDERED: Vancomycin per Pharmacy 1 EA NOTE FOLLOW UP SCH (17:00)
[2021-05-25] MEDS ORDERED: Vancomycin 2,000 MG in NS 0.9% 500 ml BAG 500 ML IVPB ONE (18:00)
[2021-05-25] MEDS: Mometasone/Formoter 200/5 MDI INH SCH (20:58)
[2021-05-25] MEDS ORDERED: CMCS: Simvastatin 20 mg TAB (NF) PO SCH (21:00)
[2021-05-26 06:12] LABS: ABS Basophils 0.1 10^3/ul (0-0.2); ABS Eosinophils 0.1 10^3/ul (0-0.6); ABS Lymphocytes 0.7 10^3/ul (1.0-4.8); ABS Monocytes 0.7 10^3/ul (0-0.8); ABS Neutrophils 12.5 10^3/ul (1.5-7.7); Eosinophil % 0.9 %; Hematocrit 45 % (42-52); Hemoglobin 15.2 g/dL (14.0-18.0); Mean Corpuscular HGB Conc 34 g/dL (31-36); Mean Corpuscular Hemoglobin 33 pg (27-31); Mean Corpuscular Volume 99 fL (80-94); Mean Platelet Volume 7.6 fL (7.4-10.4); Platelet Count 241 10^3/uL (150-450); Red Blood Count 4.54 10^6 /uL (4.18-5.48); Red Cell Distribution Width 18 % (10-15); White Blood Count 14.1 10^3/uL (3.5-10.8)
[2021-05-26 06:29] LABS: INR 1.64 (0.86-1.15)
[2021-05-26 06:36] LABS: C Reactive Protein 153.62 mg/L (<8.01); Calcium 8.8 mg/dL (8.6-10.3); Magnesium 2.3 mg/dL (1.9-2.7); eGFR CKD-EPI 72.1 (>60)
[2021-05-26] MEDS ORDERED: Vancomycin 1000 MG in NS 0.9% 250 ML IVPB SCH (08:00)
[2021-05-26] MEDS: Mometasone/Formoter 200/5 MDI INH SCH ×2 (10:09→11:03)
[2021-05-26] MEDS: Aspirin EC 81 mg TAB.EC (enteric coated) PO SCH (10:15)
[2021-05-26 12:02] VITALS: BP 104/56
[2021-05-26] MEDS ORDERED: Warfarin DAILY REMINDER **NOTE FOLLOW UP SCH (17:00)
[2021-05-27] MEDS ORDERED: Vancomycin Trough Check NOTE FOLLOW UP ONE (07:30)
== END 2021-05-26 15:30 | disposition home or self-care (01) ==
LOC: EDHOLD 21:38 → ED 21:38 → SUATTDRO 05-25 07:24 → SSU 05-25 08:20
PROVIDERS: ADMIT Internal Medicine; ATTEND Internal Medicine

== ENCOUNTER 2021-10-14 16:21 | Inpatient (IN) ==
[2021-10-14 20:22] LABS: ABS Basophils 0.1 10^3/ul (0-0.2); ABS Eosinophils 0.1 10^3/ul (0-0.6); ABS Lymphocytes 0.9 10^3/ul (1.0-4.8); ABS Monocytes 1.2 10^3/ul (0-0.8); ABS Neutrophils 11.9 10^3/ul (1.5-7.7); Eosinophil % 0.9 %; Hematocrit 47 % (42-52); Hemoglobin 15.8 g/dL (14.0-18.0); Lymphocyte % 6.4 %; Mean Corpuscular HGB Conc 33 g/dL (31-36); Mean Corpuscular Hemoglobin 35 pg (27-31); Mean Corpuscular Volume 103 fL (80-94); Mean Platelet Volume 7.9 fL (7.4-10.4); Platelet Count 249 10^3/uL (150-450); Red Blood Count 4.59 10^6 /uL (4.18-5.48); Red Cell Distribution Width 15 % (10-15); White Blood Count 14.2 10^3/uL (3.5-10.8)
[2021-10-14 20:58] LABS: Albumin 3.8 g/dL (3.2-5.2); Albumin/Globulin Ratio 1.3 (1-3); C Reactive Protein 149.15 mg/L (<8.01); Calcium 9.2 mg/dL (8.6-10.3); Globulin 2.9 g/dL (2-4); Magnesium 2.4 mg/dL (1.9-2.7); Potassium 3.8 mmol/L (3.5-5.0); Total Bilirubin 0.8 mg/dL (0.2-1.0); Total Protein 6.7 g/dL (6.4-8.9); eGFR CKD-EPI 48.4 (>60)
[2021-10-14 21:20] LABS: Urine Appearance Turbid; Urine Bilirubin Negative (Negative); Urine Blood Negative (Negative); Urine Color Yellow; Urine Glucose Negative (Negative); Urine Ketones Negative (Negative); Urine Nitrite Negative (Negative); Urine Protein 1+(30 mg/dL) (Negative); Urine Specific Gravity 1.018 (1.002-1.030); Urine Urobilinogen Negative (Negative)
[2021-10-14 21:29] LABS: Urine Bacteria Absent (Absent); Urine Red Blood Cell Absent (Absent); Urine Squamous Epithelial Cell Present (Absent); Urine White Blood Cell 3+(>20/hpf) (Absent)
[2021-10-14] MEDS ORDERED: Furosemide 40 mg/4 ml IV VIAL IV SLOW PU ONE (21:56)
[2021-10-14] MEDS ORDERED: cefTRIAXone 1 gm/50 mL D5W 1 GM/50 ML BAG IV ONE (22:29)
[2021-10-14] MEDS ORDERED: Azithromycin 500 mg/250 ml NS 500 MG/250 ML BAG IVPB ONE (22:29)
[2021-10-14] MEDS ORDERED: Ondansetron 4 mg VIAL 2 MG/ML 2 ml VIAL IV PRN (23:56)
[2021-10-14] MEDS ORDERED: Albuterol HFA INHALER 8 gm MDI INH PRN (23:59)
[2021-10-15 00:02] LABS: PCO2 Arterial 40 mmHg (35-45); PO2 Arterial 79 mmHg (80-100)
[2021-10-15 00:47] LABS: INR 2.12 (0.86-1.15)
[2021-10-15 05:14] LABS: ABS Basophils 0.1 10^3/ul (0-0.2); ABS Eosinophils 0.2 10^3/ul (0-0.6); ABS Lymphocytes 0.6 10^3/ul (1.0-4.8); ABS Monocytes 1.1 10^3/ul (0-0.8); ABS Neutrophils 10.9 10^3/ul (1.5-7.7); Eosinophil % 1.5 %; Hematocrit 43 % (42-52); Hemoglobin 14.2 g/dL (14.0-18.0); Lymphocyte % 4.6 %; Mean Corpuscular HGB Conc 33 g/dL (31-36); Mean Corpuscular Hemoglobin 34 pg (27-31); Mean Corpuscular Volume 103 fL (80-94); Platelet Count 201 10^3/uL (150-450); Red Blood Count 4.16 10^6 /uL (4.18-5.48); Red Cell Distribution Width 15 % (10-15); White Blood Count 12.8 10^3/uL (3.5-10.8)
[2021-10-15 05:46] LABS: Calcium 8.5 mg/dL (8.6-10.3); Potassium 3.9 mmol/L (3.5-5.0); eGFR CKD-EPI 55.7 (>60)
[2021-10-15] MEDS ORDERED: Potassium Chlor 20 meq TAB.ER PO ONE (06:32)
[2021-10-15] MEDS ORDERED: Furosemide 20 mg/2 ml IV VIAL IV SLOW PU ONE (07:43)
[2021-10-15] MEDS: Aspirin EC 81 mg TAB.EC (enteric coated) PO SCH (07:47)
[2021-10-15] MEDS: CMCS: FLUTICAS/UMECLI/VILANT 200-62.5-25 MDI (NF) INH SCH (10:05)
[2021-10-15] MEDS: Warfarin DAILY REMINDER **NOTE FOLLOW UP SCH (16:47)
[2021-10-16] MEDS: cefTRIAXone 1 gm/50 mL D5W 1 GM/50 ML BAG IV SCH (01:06)
[2021-10-16] MEDS: Aspirin EC 81 mg TAB.EC (enteric coated) PO SCH (08:27)
[2021-10-16] MEDS: CMCS: FLUTICAS/UMECLI/VILANT 200-62.5-25 MDI (NF) INH SCH (08:35)
[2021-10-16] MEDS ORDERED: Furosemide 40 mg/4 ml IV VIAL IV ONE (09:32)
[2021-10-16 11:22] LABS: Hematocrit 47 % (42-52); Hemoglobin 15.5 g/dL (14.0-18.0); Mean Corpuscular HGB Conc 33 g/dL (31-36); Mean Corpuscular Hemoglobin 34 pg (27-31); Mean Corpuscular Volume 103 fL (80-94); Mean Platelet Volume 8.1 fL (7.4-10.4); Platelet Count 196 10^3/uL (150-450); Red Cell Distribution Width 15 % (10-15); White Blood Count 11.2 10^3/uL (3.5-10.8)
[2021-10-16 11:40] LABS: Albumin 3.3 g/dL (3.2-5.2); Albumin/Globulin Ratio 1.1 (1-3); C Reactive Protein 154.27 mg/L (<8.01); Calcium 8.7 mg/dL (8.6-10.3); Globulin 2.9 g/dL (2-4); Magnesium 2.1 mg/dL (1.9-2.7); Phosphorus 2.5 mg/dL (2.5-5.0); Potassium 3.8 mmol/L (3.5-5.0); Total Bilirubin 0.6 mg/dL (0.2-1.0); Total Protein 6.2 g/dL (6.4-8.9); eGFR CKD-EPI 76.5 (>60)
[2021-10-16 13:21] LABS: INR 2.52 (0.86-1.15)
[2021-10-16] MEDS ORDERED: Potassium Chloride LIQUID 20 MEQ/15 ML LIQUID PO ONE (13:27)
[2021-10-16] MEDS: Warfarin DAILY REMINDER **NOTE FOLLOW UP SCH (17:36)
[2021-10-17 08:15] LABS: ABS Eosinophils 0.2 10^3/ul (0-0.6); ABS Lymphocytes 0.5 10^3/ul (1.0-4.8); ABS Monocytes 0.8 10^3/ul (0-0.8); ABS Neutrophils 9.5 10^3/ul (1.5-7.7); Eosinophil % 1.9 %; Hematocrit 42 % (42-52); Lymphocyte % 4.6 %; Mean Corpuscular HGB Conc 33 g/dL (31-36); Mean Corpuscular Hemoglobin 34 pg (27-31); Mean Corpuscular Volume 102 fL (80-94); Mean Platelet Volume 8.1 fL (7.4-10.4); Platelet Count 243 10^3/uL (150-450); Red Blood Count 4.15 10^6 /uL (4.18-5.48); Red Cell Distribution Width 14 % (10-15); White Blood Count 11.1 10^3/uL (3.5-10.8)
[2021-10-17] MEDS: CMCS: FLUTICAS/UMECLI/VILANT 200-62.5-25 MDI (NF) INH SCH (08:31)
[2021-10-17 08:56] LABS: Magnesium 2.2 mg/dL (1.9-2.7); eGFR CKD-EPI 65.3 (>60)
[2021-10-17] MEDS: Aspirin EC 81 mg TAB.EC (enteric coated) PO SCH (09:25)
[2021-10-17 10:00] LABS: Calcium 8.7 mg/dL (8.6-10.3)
[2021-10-17] MEDS: cefTRIAXone 1 gm/50 mL D5W 1 GM/50 ML BAG IV SCH (13:05)
[2021-10-17] MEDS: Warfarin DAILY REMINDER **NOTE FOLLOW UP SCH (18:28)
[2021-10-17] MEDS: Nystatin SUSPENSION 100,000 UNITS/ML UDC PO SCH (22:41)
[2021-10-18] MEDS: cefTRIAXone 1 gm/50 mL D5W 1 GM/50 ML BAG IV SCH (01:25)
[2021-10-18 05:26] LABS: ABS Basophils 0.1 10^3/ul (0-0.2); ABS Eosinophils 0.2 10^3/ul (0-0.6); ABS Lymphocytes 0.6 10^3/ul (1.0-4.8); ABS Monocytes 0.8 10^3/ul (0-0.8); ABS Neutrophils 8.2 10^3/ul (1.5-7.7); Eosinophil % 2.5 %; Hematocrit 41 % (42-52); Hemoglobin 13.7 g/dL (14.0-18.0); Lymphocyte % 5.9 %; Mean Corpuscular HGB Conc 34 g/dL (31-36); Mean Corpuscular Hemoglobin 34 pg (27-31); Mean Corpuscular Volume 102 fL (80-94); Mean Platelet Volume 7.9 fL (7.4-10.4); Platelet Count 231 10^3/uL (150-450); Red Blood Count 4.02 10^6 /uL (4.18-5.48); Red Cell Distribution Width 15 % (10-15); White Blood Count 9.8 10^3/uL (3.5-10.8)
[2021-10-18 05:29] LABS: INR 3.72 (0.86-1.15)
[2021-10-18 06:08] LABS: Calcium 8.2 mg/dL (8.6-10.3); Magnesium 2.1 mg/dL (1.9-2.7); Potassium 3.6 mmol/L (3.5-5.0); eGFR CKD-EPI 78.4 (>60)
[2021-10-18] MEDS: CMCS: FLUTICAS/UMECLI/VILANT 200-62.5-25 MDI (NF) INH SCH (07:30)
[2021-10-18] MEDS: Nystatin SUSPENSION 100,000 UNITS/ML UDC PO SCH ×4 (08:25→20:01)
[2021-10-18] MEDS ORDERED: Warfarin per PHARMACY **NOTE FOLLOW UP SCH (12:00)
[2021-10-18] MEDS ORDERED: Warfarin - No Order Today **NOTE FOLLOW UP ONE (17:00)
[2021-10-18] MEDS: Warfarin DAILY REMINDER **NOTE FOLLOW UP SCH (17:52)
[2021-10-19] MEDS: cefTRIAXone 1 gm/50 mL D5W 1 GM/50 ML BAG IV SCH (01:24)
[2021-10-19 06:00] LABS: Hematocrit 40 % (42-52); Hemoglobin 13.4 g/dL (14.0-18.0); Mean Corpuscular HGB Conc 34 g/dL (31-36); Mean Corpuscular Hemoglobin 35 pg (27-31); Mean Corpuscular Volume 103 fL (80-94); Mean Platelet Volume 8.4 fL (7.4-10.4); Platelet Count 262 10^3/uL (150-450); Red Blood Count 3.87 10^6 /uL (4.18-5.48); Red Cell Distribution Width 15 % (10-15); White Blood Count 10.3 10^3/uL (3.5-10.8)
[2021-10-19 06:08] LABS: INR 4.72 (0.86-1.15)
[2021-10-19 06:29] LABS: ABS Eosinophils 0.3 10^3/ul (0-0.6); ABS Lymphocytes 0.5 10^3/ul (1.0-4.8); ABS Monocytes 0.8 10^3/ul (0-0.8); ABS Neutrophils 8.7 10^3/ul (1.5-7.7); Eosinophil % 2.8 %; Lymphocyte % 5.1 %
[2021-10-19 06:54] LABS: CO2 Carbon Dioxide 27 mmol/L (22-32); Calcium 8.1 mg/dL (8.6-10.3); Chloride 105 mmol/L (101-111); Sodium 138 mmol/L (135-145)
[2021-10-19 06:55] LABS: Anion Gap 6 mmol/L (2-11)
[2021-10-19 07:00] LABS: Blood Urea Nitrogen 17 mg/dL (6-24); Glucose 99 mg/dL (70-100); eGFR CKD-EPI 88.9 (>60)
[2021-10-19] MEDS: CMCS: FLUTICAS/UMECLI/VILANT 200-62.5-25 MDI (NF) INH SCH (07:35)
[2021-10-19] MEDS: Nystatin SUSPENSION 100,000 UNITS/ML UDC PO SCH ×4 (08:53→23:04)
[2021-10-19] MEDS: Warfarin DAILY REMINDER **NOTE FOLLOW UP SCH (15:55)
[2021-10-19] MEDS ORDERED: Warfarin - No Order Today **NOTE FOLLOW UP ONE (17:00)
[2021-10-20] MEDS: cefTRIAXone 1 gm/50 mL D5W 1 GM/50 ML BAG IV SCH (02:28)
[2021-10-20 06:57] LABS: ABS Basophils 0.1 10^3/ul (0-0.2); ABS Eosinophils 0.4 10^3/ul (0-0.6); ABS Lymphocytes 0.8 10^3/ul (1.0-4.8); ABS Monocytes 0.8 10^3/ul (0-0.8); ABS Neutrophils 8.7 10^3/ul (1.5-7.7); Eosinophil % 3.3 %; Hematocrit 43 % (42-52); Hemoglobin 14.5 g/dL (14.0-18.0); Lymphocyte % 7.4 %; Mean Corpuscular HGB Conc 34 g/dL (31-36); Mean Corpuscular Hemoglobin 34 pg (27-31); Mean Corpuscular Volume 103 fL (80-94); Platelet Count 294 10^3/uL (150-450); Red Blood Count 4.23 10^6 /uL (4.18-5.48); Red Cell Distribution Width 15 % (10-15); White Blood Count 10.7 10^3/uL (3.5-10.8)
[2021-10-20 07:06] LABS: INR 4.13 (0.86-1.15)
[2021-10-20 07:39] LABS: Calcium 8.6 mg/dL (8.6-10.3); Potassium 4.1 mmol/L (3.5-5.0); eGFR CKD-EPI 86.1 (>60)
[2021-10-20] MEDS: CMCS: FLUTICAS/UMECLI/VILANT 200-62.5-25 MDI (NF) INH SCH (08:38)
[2021-10-20] MEDS ORDERED: Furosemide 40 mg/4 ml IV VIAL IV ONE (09:35)
[2021-10-20] MEDS: Nystatin SUSPENSION 100,000 UNITS/ML UDC PO SCH ×3 (09:36→22:17)
[2021-10-20] MEDS ORDERED: Warfarin - No Order Today **NOTE FOLLOW UP ONE (17:00)
[2021-10-20] MEDS: Warfarin DAILY REMINDER **NOTE FOLLOW UP SCH (18:11)
[2021-10-21] MEDS: cefTRIAXone 1 gm/50 mL D5W 1 GM/50 ML BAG IV SCH (01:45)
[2021-10-21] MEDS: Nystatin SUSPENSION 100,000 UNITS/ML UDC PO SCH ×2 (01:45→09:51)
[2021-10-21 05:35] LABS: Hematocrit 41 % (42-52); Hemoglobin 13.6 g/dL (14.0-18.0); Mean Corpuscular HGB Conc 33 g/dL (31-36); Mean Corpuscular Hemoglobin 33 pg (27-31); Mean Corpuscular Volume 102 fL (80-94); Mean Platelet Volume 8.2 fL (7.4-10.4); Platelet Count 287 10^3/uL (150-450); Red Blood Count 4.08 10^6 /uL (4.18-5.48); Red Cell Distribution Width 15 % (10-15); White Blood Count 8.4 10^3/uL (3.5-10.8)
[2021-10-21 05:38] LABS: INR 3.43 (0.86-1.15)
[2021-10-21 05:51] LABS: Calcium 8.3 mg/dL (8.6-10.3); Magnesium 1.9 mg/dL (1.9-2.7); Potassium 3.8 mmol/L (3.5-5.0); eGFR CKD-EPI 83.6 (>60)
[2021-10-21 06:04] LABS: ABS Basophils 0.1 10^3/ul (0-0.2); ABS Eosinophils 0.3 10^3/ul (0-0.6); ABS Lymphocytes 0.7 10^3/ul (1.0-4.8); ABS Monocytes 0.8 10^3/ul (0-0.8); ABS Neutrophils 6.5 10^3/ul (1.5-7.7); Eosinophil % 4.1 %; Lymphocyte % 8.6 %; Nucleated Red Blood Cells % 0.1
[2021-10-21] MEDS ORDERED: Magnesium Sulfate 2 gm BAG 2 GM/50 ML BAG IVPB ONE (07:15)
[2021-10-21] MEDS: CMCS: FLUTICAS/UMECLI/VILANT 200-62.5-25 MDI (NF) INH SCH (08:58)
[2021-10-21 11:26] VITALS: BP 105/60
[2021-10-21] MEDS ORDERED: Warfarin - No Order Today **NOTE FOLLOW UP ONE (17:00)
== END 2021-10-21 16:50 | disposition home or self-care (01) | DRG 871 ==
LOC: ED 16:21 → SUATTDRO 23:56 → EDHOLD 23:56 → ICU 10-15 01:39 → MEDTELE 10-16 10:12
PROVIDERS: ADMIT Internal Medicine; ATTEND Internal Medicine

== ENCOUNTER 2021-11-02 01:35 | Observation (INO) ==
[2021-11-02 03:52] LABS: ABS Lymphocytes 0.2 10^3/ul (1.0-4.8); ABS Monocytes 0.8 10^3/ul (0-0.8); ABS Neutrophils 18.6 10^3/ul (1.5-7.7); Hematocrit 41 % (42-52); Hemoglobin 13.5 g/dL (14.0-18.0); Lymphocyte % 1.1 %; Mean Corpuscular HGB Conc 33 g/dL (31-36); Mean Corpuscular Hemoglobin 33 pg (27-31); Mean Corpuscular Volume 102 fL (80-94); Mean Platelet Volume 7.1 fL (7.4-10.4); Nucleated Red Blood Cells % 0.1; Platelet Count 381 10^3/uL (150-450); Red Blood Count 4.06 10^6 /uL (4.18-5.48); Red Cell Distribution Width 15 % (10-15); White Blood Count 19.6 10^3/uL (3.5-10.8)
[2021-11-02 03:58] LABS: INR 4.19 (0.86-1.15)
[2021-11-02 04:39] LABS: Calcium 8.7 mg/dL (8.6-10.3); Potassium 4.8 mmol/L (3.5-5.0); eGFR CKD-EPI 51.4 (>60)
[2021-11-02 08:03] LABS: Urine Appearance Cloudy; Urine Bilirubin Negative (Negative); Urine Blood 3+ (Negative); Urine Glucose Negative (Negative); Urine Ketones Negative (Negative); Urine Nitrite Negative (Negative); Urine Protein 1+(30 mg/dL) (Negative); Urine Urobilinogen Negative (Negative)
[2021-11-02 08:05] LABS: Urine Bacteria 1+ (Absent); Urine Red Blood Cell 3+(>10/hpf) (Absent); Urine White Blood Cell 3+(>20/hpf) (Absent)
[2021-11-02 08:31] LABS: Urine Color Amber
[2021-11-02] MEDS ORDERED: Levofloxacin 750 MG IVPREMIX 750 MG/150 ML BAG IVPB ONE (09:17)
[2021-11-02] MEDS ORDERED: cefTRIAXone 1 gm/50 mL D5W 1 GM/50 ML BAG IV ONE (09:27)
[2021-11-02] MEDS ORDERED: Albuterol HFA INHALER 8 gm MDI INH PRN (14:08)
[2021-11-02] MEDS ORDERED: Phytonadione IV (Adult) 5 MG in NS 0.9% 50 ML 50 ML IV ONE (14:15)
[2021-11-02 14:26] LABS: Albumin 3.1 g/dL (3.2-5.2); Albumin/Globulin Ratio 1.1 (1-3); Direct Bilirubin 0.1 mg/dL (0.03-0.18); Globulin 2.8 g/dL (2-4); Indirect Bilirubin 0.5 mg/dL (0.3-1.0); Total Bilirubin 0.6 mg/dL (0.2-1.0); Total Protein 5.9 g/dL (6.4-8.9)
[2021-11-03 07:14] LABS: ABS Basophils 0.1 10^3/ul (0-0.2); ABS Eosinophils 0.3 10^3/ul (0-0.6); ABS Lymphocytes 0.6 10^3/ul (1.0-4.8); ABS Monocytes 0.7 10^3/ul (0-0.8); ABS Neutrophils 12.1 10^3/ul (1.5-7.7); Eosinophil % 2.1 %; Hematocrit 40 % (42-52); Hemoglobin 13.4 g/dL (14.0-18.0); Lymphocyte % 4.2 %; Mean Corpuscular HGB Conc 33 g/dL (31-36); Mean Corpuscular Hemoglobin 34 pg (27-31); Mean Corpuscular Volume 103 fL (80-94); Mean Platelet Volume 7.2 fL (7.4-10.4); Platelet Count 339 10^3/uL (150-450); Red Blood Count 3.93 10^6 /uL (4.18-5.48); Red Cell Distribution Width 15 % (10-15); White Blood Count 13.7 10^3/uL (3.5-10.8)
[2021-11-03 07:26] LABS: Activated Partial Thrombo Time 38.9 seconds (26.0-38.0); INR 1.82 (0.86-1.15)
[2021-11-03 07:50] LABS: Albumin 2.9 g/dL (3.2-5.2); Calcium 8.7 mg/dL (8.6-10.3); Magnesium 2.4 mg/dL (1.9-2.7); Potassium 4.3 mmol/L (3.5-5.0); Total Bilirubin 0.9 mg/dL (0.2-1.0); Total Protein 5.9 g/dL (6.4-8.9); eGFR CKD-EPI 80.4 (>60)
[2021-11-03] MEDS: Vitamin THERAPEUTIC TAB PO SCH (07:55)
[2021-11-03] MEDS: FLUTICAS/UMECLI/VILANT 200-62.5-25 MDI (NF) INH SCH (08:59)
[2021-11-03] MEDS ORDERED: cefTRIAXone 1 gm/50 mL D5W 1 GM/50 ML BAG IV SCH (10:00)
[2021-11-03] MEDS ORDERED: Cefepime ADVAN 1 GM in NS 0.9% 50 ML 50 ML IVPB SCH (16:00)
[2021-11-03] MEDS: Cefepime 1 GM in Dextrose 1 GM/50 ML BAG IV SCH (17:31)
[2021-11-04] MEDS: Cefepime 1 GM in Dextrose 1 GM/50 ML BAG IV SCH (03:06)
[2021-11-04 05:02] LABS: Hematocrit 37 % (42-52); Hemoglobin 12.3 g/dL (14.0-18.0); Mean Corpuscular HGB Conc 33 g/dL (31-36); Mean Corpuscular Hemoglobin 34 pg (27-31); Mean Corpuscular Volume 102 fL (80-94); Mean Platelet Volume 7.5 fL (7.4-10.4); Platelet Count 292 10^3/uL (150-450); Red Blood Count 3.64 10^6 /uL (4.18-5.48); Red Cell Distribution Width 15 % (10-15); White Blood Count 9.4 10^3/uL (3.5-10.8)
[2021-11-04 05:17] LABS: Calcium 8.4 mg/dL (8.6-10.3); Magnesium 2.2 mg/dL (1.9-2.7); Potassium 4.3 mmol/L (3.5-5.0); eGFR CKD-EPI 88.2 (>60)
[2021-11-04 08:22] LABS: Folate 15.13 ng/mL (5.90-24.80)
[2021-11-04 08:51] LABS: INR 1.45 (0.86-1.15)
[2021-11-04] MEDS: Vitamin THERAPEUTIC TAB PO SCH (09:28)
[2021-11-04] MEDS: FLUTICAS/UMECLI/VILANT 200-62.5-25 MDI (NF) INH SCH (09:30)
[2021-11-04 12:20] VITALS: BP 111/64
== END 2021-11-04 15:20 | disposition home or self-care (01) ==
LOC: EDHOLD 01:35 → ED 01:35 → SUATTDRO 15:34 → MED 18:58
PROVIDERS: ADMIT Internal Medicine; ATTEND Student in an Organized Health Care Education/Training Program

== ENCOUNTER 2024-04-26 02:00 | Inpatient (IN) ==
[2024-04-26] MEDS: cefTRIAXone 1 gm/50 mL D5W 1 GM/50 ML BAG IV ONE (03:48)
[2024-04-26 03:49] LABS: Hematocrit 47.8 % (38-53); Hemoglobin 16.3 g/dL (13.2-16.3); Mean Corpuscular Hemoglobin 34.5 pg (27-33); Mean Corpuscular Hgb Conc 34.2 g/dL (31-36); Mean Corpuscular Volume 100.8 fL (80-97); Mean Platelet Volume 8.5 fL (7.5-11.2); Platelet Count 249 10^3/uL (150-450); Red Blood Count 4.74 10^6/uL (4.06-5.63); Red Cell Distribution Width 14.5 % (12-17); White Blood Count 26.1 10^3/uL (3.6-10.2)
[2024-04-26 03:50] LABS: Activated Partial Thrombo Time 44.3 seconds (26.0-38.0); INR 1.72 (0.85-1.14)
[2024-04-26] MEDS: Lactated Ringers 1000 ml BAG 1,000 ML IV ONE (03:55)
[2024-04-26] MEDS: Azithromycin 500 mg/250 ml NS 500 MG/250 ML BAG IVPB ONE (03:55)
[2024-04-26 04:32] LABS: Albumin 3.9 g/dL (3.2-5.2); Albumin/Globulin Ratio 1.1 (1-3); Calcium 9.4 mg/dL (8.6-10.3); Creatinine, Serum 1.1 mg/dL (0.67-1.17); Globulin 3.4 g/dL (2-4); Potassium 4.4 mmol/L (3.5-5.0); Total Bilirubin 0.8 mg/dL (0.2-1.0); Total Protein 7.3 g/dL (6.4-8.9); eGFR CKD-EPI 66.2 (>60)
[2024-04-26 04:54] LABS: ABS Basophils 0.2 10^3/uL (0.0-0.1); ABS Lymphocytes 0.4 10^3/uL (1.0-4.8); ABS Monocytes 1.1 10^3/uL (0.0-1.1); ABS Neutrophils 24.4 10^3/uL (1.5-7.6); Lymphocyte % 1.6 %; RBC Morphology Normal (Normal)
[2024-04-26 04:55] LABS: High Sensitivity Troponin 1 Hr 17 pg/mL (<20)
[2024-04-26] MEDS ORDERED: Albuterol HFA INHALER 8 gm MDI INH PRN (05:32)
[2024-04-26 06:02] LABS: Magnesium 1.9 mg/dL (1.9-2.7)
[2024-04-26 06:22] LABS: Urine Appearance Clear; Urine Bilirubin Negative (Negative); Urine Blood Negative (Negative); Urine Color Yellow; Urine Glucose Negative (Negative); Urine Ketones Negative (Negative); Urine Nitrite Negative (Negative); Urine Protein 1+ (>=30 mg/dL) (Negative); Urine Specific Gravity 1.031 (1.002-1.030); Urine Urobilinogen 1+ (Negative)
[2024-04-26] MEDS: Magnesium Sulfate 2 gm BAG 2 GM/50 ML BAG IVPB ONE (07:04)
[2024-04-26] MEDS: Furosemide 40 mg/4 ml IV VIAL IV SLOW PU ONE (07:04)
[2024-04-26 07:27] LABS: Urine Bacteria Absent /HPF (Absent); Urine Red Blood Cell Absent /HPF (0-Trace); Urine Squamous Epithelial Cell Present /HPF (Absent); Urine White Blood Cell 1+(6-10/hpf) /HPF (0-Trace)
[2024-04-26] MEDS: FLUTICAS/UMECLI/VILANT 200-62.5-25 MDI (NF) INH SCH (09:17)
[2024-04-26] MEDS: Furosemide 40 mg/4 ml IV VIAL IV ONE (10:52)
[2024-04-26] MEDS: Sulfur Hexaflouride MICROSPHR 25 MG VIAL IV PRN (12:47)
[2024-04-26] MEDS: Nystatin TOP POWDER 15 GM BTL TOPICAL SCH (14:00)
[2024-04-27] MEDS: cefTRIAXone 1 gm/50 mL D5W 1 GM/50 ML BAG IV SCH (03:19)
[2024-04-27] MEDS: Azithromycin 500 mg/250 ml NS 500 MG/250 ML BAG IVPB SCH (05:55)
[2024-04-27 08:02] LABS: ABS Basophils 0.1 10^3/uL (0.0-0.1); ABS Eosinophils 0.1 10^3/uL (0.0-0.5); ABS Lymphocytes 0.7 10^3/uL (1.0-4.8); ABS Monocytes 0.8 10^3/uL (0.0-1.1); ABS Neutrophils 11.3 10^3/uL (1.5-7.6); Eosinophil % 0.7 %; Hematocrit 41.6 % (38-53); Hemoglobin 14.3 g/dL (13.2-16.3); Lymphocyte % 5.5 %; Mean Corpuscular Hemoglobin 34.3 pg (27-33); Mean Corpuscular Hgb Conc 34.4 g/dL (31-36); Mean Corpuscular Volume 99.6 fL (80-97); Mean Platelet Volume 7.9 fL (7.5-11.2); Platelet Count 209 10^3/uL (150-450); Red Blood Count 4.17 10^6/uL (4.06-5.63); Red Cell Distribution Width 14.2 % (12-17); White Blood Count 12.9 10^3/uL (3.6-10.2)
[2024-04-27 08:15] LABS: Calcium 8.4 mg/dL (8.6-10.3); Creatinine, Serum 0.96 mg/dL (0.67-1.17); Magnesium 2.1 mg/dL (1.9-2.7); Potassium 3.8 mmol/L (3.5-5.0); eGFR CKD-EPI 77.9 (>60)
[2024-04-27 13:30] VITALS: BP 94/69
== END 2024-04-27 16:25 | disposition home or self-care (01) | DRG 193 ==
LOC: ED 02:00 → EDHOLD 02:00 → SUATTDRO 04:41 → OBSVTOIN 04:41 → MED 06:22
PROVIDERS: ADMIT Student in an Organized Health Care Education/Training Program; ATTEND Student in an Organized Health Care Education/Training Program